=== PATIENT | male | born 1955 | race Caucasian/White ===

== ENCOUNTER 2017-05-31 06:40 | Day surgery (SDC) | payer OTHER ==
[2017-05-27 09:22] VITALS: BMI 25.7
[~2017-05-31 06:40] MED LIST: LIDOCAINE 1% 20 ML VIAL (10MG/ML) FOR IV START INTRADERMA PRN
[2017-05-31 07:20] VITALS: TEMP 96.9
[2017-05-31] MEDS: LACTATED RINGERS 1,000 ML IV SCH ×2 (07:28→07:32)
[2017-05-31 07:30] LABS: Glucose,Whole Blood 126 mg/dL (75-99)
[2017-05-31] MEDS ORDERED: LIDOCAINE 1% INJ 10MG/ML (20 ML MDV) ONE (07:34)
[2017-05-31] MEDS ORDERED: PROPOFOL 10 MG/ML 20 ML VIAL IV ONE (07:34)
--- NOTE | 2017-05-31 08:24 | P.PCN ---
Date of Procedure: 05/31/17 Preoperative Diagnosis: Red blood per rectum Postoperative Diagnosis: Scattered sigmoid diverticuli, internal hemorrhoids, prominent anal papilla right posterior lateral skin tag Procedure(s) Performed: Colonoscopy Anesthesia: MAC Surgeon: Elena Duran Estimated Blood Loss (ml): 0 IV fluids (ml): 250 Pathology: none sent Condition: stable Disposition: PACU Indications for Procedure: Red blood per rectum Operative Findings: Right posterior lateral external skin tag, internal hemorrhoids, prominent anal papillae, sigmoid diverticuli Description of Procedure: Patient was taken to the endoscopy suite and following sedation rectal exam was performed. Patient was noted to have a right posterior lateral external skin tag, adequate sphincter tone, no masses of concern. Consult was passed through the anus into the rectum was passed up the sigmoid colon to the splenic flexure transverse colon hepatic flexure right colon down to the area of the cecum. Proximally 6 minutes were taken to withdraw the scope from the cecum to the rectum. Circumferential observation of the mucosa did not reveal any lesions of concern in the cecum or right colon. No lesions of concern in the transverse colon. As the scope was brought down through the left colon and sigmoid colon scattered diverticular orifices were identified. Scope was brought down to the rectum where it was retroflexed. Internal hemorrhoids were identified with prominent anal papillae. Impression/plan: 1. Right external skin tag 2. Prominent anal papillae 3. Internal hemorrhoids 4. Beginning of diverticuli Plan: 1. Conservative management 2. Repeat scope 7-10 years
[2017-05-31 08:25] VITALS: PULSE 76
--- NOTE | 2017-05-31 08:25 | P.DS ---
Providers Attending physician: Elena Duran Primary care physician: Johan Grande Plan - Discharge Summary New Discharge Prescriptions: No Action oxyCODONE HCL 30 mg PO Q4HR PRN PRN Reason: Pain Tamsulosin [Flomax] 0.4 mg PO DAILY Phenytoin Sodium Extended [Dilantin] 200 mg PO QAM Primidone [Mysoline] 50 mg PO BID Phenytoin Sodium Extended 300 mg PO HS Oxybutynin Xl [Ditropan XL] 5 g PO BID Meloxicam 15 mg PO DAILY Discharge Medication List Meloxicam 15 mg PO DAILY 05/27/17 [History] Oxybutynin Xl [Ditropan XL] 5 g PO BID 05/27/17 [History] Phenytoin Sodium Extended 300 mg PO HS 05/27/17 [History] Phenytoin Sodium Extended [Dilantin] 200 mg PO QAM 05/27/17 [History] Primidone [Mysoline] 50 mg PO BID 05/27/17 [History] Tamsulosin [Flomax] 0.4 mg PO DAILY 05/27/17 [History] oxyCODONE HCL 30 mg PO Q4HR PRN 05/27/17 [History] Follow up Appointment(s)/Referral(s): Elena Duran MD [STAFF PHYSICIAN] - 1 Week Activity/Diet/Wound Care/Special Instructions: Diverticular diet Do not drive today Discharge Disposition: HOME SELF-CARE
[2017-05-31 08:37] VITALS: BP 121/81; RESP 18
== END 2017-05-31 08:53 | disposition home or self-care (01) ==
LOC: ORWHC2ENDO 06:40
PROVIDERS: ATTEND Surgery
DX: K64.4 Residual hemorrhoidal skin tags (principal); K64.8 Other hemorrhoids; K57.30 Diverticulosis of large intestine without perforation or abscess without bleeding; I10 Essential (primary) hypertension; J43.9 Emphysema, unspecified; F17.210 Nicotine dependence, cigarettes, uncomplicated; Z79.891 Long term (current) use of opiate analgesic; Z79.899 Other long term (current) drug therapy; G40.909 Epilepsy, unspecified, not intractable, without status epilepticus; R25.1 Tremor, unspecified; Z79.1 Long term (current) use of non-steroidal anti-inflammatories (NSAID)
CPT/HCPCS: 45378; J2001; J2704

== ENCOUNTER → 2017-09-06 | Outpatient (CLI) | payer OTHER ==
[2017-09-06 19:20] LABS: Blood Urea Nitrogen 18 mg/dL (9-20)
--- NOTE | 2017-09-06 21:13 | CT ---
EXAMINATION TYPE: CT brain w con DATE OF EXAM: 09/06/2017 COMPARISON: 08/21/2014 HISTORY: Left side neck swelling x2 months. CT DLP: 1112.4 mGycm Automated exposure control for dose reduction was used. CONTRAST: CT scan of the head is performed with IV Contrast, patient injected with 100ml mL of Isovue 300. FINDINGS: Ventricles of normal size. There is no mass effect nor midline shift. There is no sign of intracrania l hemorrhage. The calvarium is intact. There is no pathologic enhancement. IMPRESSION: Negative CT scan of the brain. No change.
--- NOTE | 2017-09-06 23:45 | CT ---
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 Left side neck swelling x2 months. TECHNIQUE: Contiguous axial scanning of the soft tissues of the neck performed with IV Contrast, sadi ent injected with 100ml mL of Isovue 300. Coronal/sagittal reconstructions performed. CT DLP: 522.2 mGycm Automated exposure control for dose reduction was used. FINDINGS: Visualized intracranial structures, mastoid air cells, and paranasal sinuses appear clear. Old blowou t fracture medial wall of the left orbit. Nasopharynx is clear. Oropharynx appears clear. The prevertebral soft tissues and epiglottis appear n ormal. The glottic and subglottic structures as well as the tracheal column are clear. Moderate centrilobula r emphysema in the visualized upper lungs with biapical pleural-parenchymal scarring. The thyroid gland and parotid glands are satisfactory. The bilateral submandibular glands are atrophi c. Mild to moderate atherosclerotic changes at the carotid bifurcations without significant internal car otid narrowing identified. No cervical lymphadenopathy or abnormal mass is identified in the neck Bones: Endplate spondylosis at C7-T1. No osseous destructive process. IMPRESSION: 1. NO CONVINCING EVIDENCE FOR RECURRENT NEOPLASM OR CERVICAL LYMPHADENOPATHY. IF THERE IS PERSISTENT CONCERN, THE EXAM CAN BE REVIEWED WITH ATTENTION DIRECTED TO THE SITE OF CLINICALLY APPARENT NECK SWE LLING. 2. COPD WITH MODERATE EMPHYSEMA.
== END | disposition home or self-care (01) ==
LOC: RADCTMAIN 18:28
PROVIDERS: ATTEND Family Medicine
DX: C02.9 Malignant neoplasm of tongue, unspecified (principal)
CPT/HCPCS: 82565; 84520; 70491; 70460; 36415; Q9967

== ENCOUNTER → 2017-12-08 | Outpatient (CLI) | payer OTHER ==
[~2017-12-08] MED LIST changes: -LIDOCAINE 1% 20 ML VIAL (10MG/ML) FOR IV START INTRADERMA PRN; +REGADENOSON 0.4 MG/5 ML SYRINGE IV ONE
--- NOTE | 2017-12-08 11:32 | NM ---
EXAMINATION TYPE: NM stress lexiscan cardiolite DATE OF EXAM: 12/08/2017 COMPARISON: 08/26/2014 HISTORY: Chest pain TECHNIQUE: After the intravenous administration of 10.85 mCi Tc 99m Sestamibi - Cardiolite resting S PECT images acquired 45 minutes post injection. The patient received 0.4mg Lexiscan, 26.9 mCi Tc 99m Sestamibi - Stress images obtained [address] injection FINDINGS: Review of stress and rest SPECT images demonstrates no distinct perfusion abnormality. Gated analysi s shows normal wall motion with an estimated left ventricular ejection fraction of 61 %. IMPRESSION: No scintigraphic evidence for reversible ischemia.
--- NOTE | 2017-12-08 13:36 | P.STRESS ---
- Stress Test Note Stress Test Results/Findings: Exam Performed: NM stress lexiscan cardiolite Exam Date: 12/08/17 Reason for Exam: CHEST PAIN / SOB Height: 6 ft 1 in Weight: 92.533 kg Protocol: LEXISCAN Stage: NA Duration of Exercise: NA Resting Heart Rate: 71 Resting Blood Pressure: 107/66 Maximum Achieved Heart Rate: 84 Maximum Achieved Blood Pressure: 118/60 85% PMHR: NA 100% PMHR: NA METS: NA Technologist Comment: Stress Test Results/Findings: This is a 61-year-old gentleman with history of hypertension, diabetes and hypercholesterolemia being evaluated for symptoms of chest pain and shortness of breath. stress data: Baseline EKG showed sinus rhythm with normal NV interval and QRS duration. A standard some Lexiscan was infused. EKGs taken during and after the infusion did not reveal any changes of ischemia. Final impression: #1. Negative Lexiscan stress test #2. Report on the nuclear images to be given by the radiologist
--- NOTE | 2017-12-09 15:57 | EST ---
Stress Test Results/Findings: Exam Performed: NM stress lexiscan cardiolite Exam Date: 12/08/17 Reason for Exam: CHEST PAIN / SOB Height: 6 ft 1 in Weight: 92.533 kg Protocol: LEXISCAN Stage: NA Duration of Exercise: NA Resting Heart Rate: 71 Resting Blood Pressure: 107/66 Maximum Achieved Heart Rate: 84 Maximum Achieved Blood Pressure: 118/60 85% PMHR: NA 100% PMHR: NA METS: NA Technologist Comment: Stress Test Results/Findings: This is a 61-year-old gentleman with history of hypertension, diabetes and hypercholesterolemia being evaluated for symptoms of chest pain and shortness of breath. stress data: Baseline EKG showed sinus rhythm with normal DC interval and QRS duration. A standard some Lexiscan was infused. EKGs taken during and after the infusion did not reveal any changes of ischemia. Final impression: #1. Negative Lexiscan stress test #2. Report on the nuclear images to be given by the radiologist ANNE
== END | disposition home or self-care (01) ==
LOC: RADNMMAIN 08:08
PROVIDERS: ATTEND Family Medicine
DX: R07.9 Chest pain, unspecified (principal)
CPT/HCPCS: 93017; 78452; A9500; J2785

== ENCOUNTER → 2018-07-24 | Outpatient (CLI) | payer OTHER ==
--- NOTE | 2018-07-25 09:10 | XR ---
EXAMINATION TYPE: XR chest 2V DATE OF EXAM: 07/24/2018 COMPARISON: NONE TECHNIQUE: PA and lateral views submitted. HISTORY: COPD FINDINGS: The lungs are clear and there is no pneumothorax, pleural effusion, or focal pneumonia. Biapical pl eural thickening. Arthropathy of the shoulders. Somewhat coarsened interstitium. There is right apica l pleural-based thickening IMPRESSION: 1. No acute process. Interstitium appears somewhat coarsened likely chronic correlate for chronic int erstitial lung disease or interstitial pneumonitis.
== END | disposition home or self-care (01) ==
LOC: RADXRMAIN 16:05
PROVIDERS: ATTEND Family Medicine
DX: J44.9 Chronic obstructive pulmonary disease, unspecified (principal)
CPT/HCPCS: 71046

== ENCOUNTER → 2019-08-16 | Outpatient (CLI) | payer MEDICARE, OTHER ==
--- NOTE | 2019-08-16 10:07 | US ---
EXAMINATION TYPE: US duplex aorta DATE OF EXAM: 08/16/2019 COMPARISON: NONE CLINICAL HISTORY: Z13.6 encounter for screening for cardiovascular. High cholesterol, Smoker, Patient states having HTN but is normal now EXAM MEASUREMENTS: Abdominal Aorta: Proximal: 2.0 x 1.9 cm Mid: 2.1 x 2.1 cm Distal: 1.7 x 1.5 cm Bifurcation: Right- 1.2 x 0.8 cm Left- 1.3 x 0.9 cm Limited exam due to overlying bowel gas and patient body habitus No AAA visualized at time of study. Limited visualization of bifurcations. IMPRESSION: No sonographic evidence of abdominal aortic aneurysm in the visualized portions of the ab dominal aorta.
== END | disposition home or self-care (01) ==
LOC: RADUSWWP 09:22
PROVIDERS: ATTEND Family Medicine
DX: Z13.6 Encounter for screening for cardiovascular disorders (principal)
CPT/HCPCS: 93979

== ENCOUNTER 2019-09-28 14:57 | Inpatient (IN) | payer MEDICARE, OTHER ==
[2019-09-28] MEDS ORDERED: SODIUM CHLORIDE 0.9% 1,000 ML IV STA (16:12)
[2019-09-28] MEDS ORDERED: SODIUM CHLORIDE 0.9% 500 ML 500 ML IV STA (16:12)
[2019-09-28] MEDS ORDERED: MORPHINE SULFATE 4 MG/ML SYRINGE IV STA (16:12)
--- NOTE | 2019-09-28 16:13 | ED ---
Abdominal Pain HPI - General Chief Complaint: Recheck/Abnormal Lab/Rx Stated Complaint: nausea, sob, facial swelling Time Seen by Provider: 09/28/19 15:24 Source: patient, RN notes reviewed, old records reviewed Mode of arrival: wheelchair Limitations: no limitations - History of Present Illness Initial Comments: This is a 64-year-old male DF with multiple complaints increased cough congestion facial swelling abdominal swelling decreased bowel movements decreased appetite. Patient surgical history significant for appendix surgery, denying any recent fevers, does now symptoms are progressively worsening abdominal bloating and tenderness is worsening MD Complaint: abdominal pain, other (Cough shortness of breath) -: week(s) Location: diffuse Radiation: none Migration to: no migration Severity: moderate Severity scale (1-10): 4 Quality: aching Consistency: constant Improves With: nothing Worsens With: nothing Context: other (None) Associated Symptoms: nausea - Related Data Home Medications Medication Instructions Recorded Confirmed Meloxicam 15 mg PO DAILY 05/27/17 09/28/19 Phenytoin Sodium Extended 200 mg PO DAILY 05/27/17 09/28/19 [Dilantin] Primidone [Mysoline] 50 mg PO BID 05/27/17 09/28/19 Tamsulosin [Flomax] 0.4 mg PO DAILY 05/27/17 09/28/19 oxyCODONE HCL [oxyCODONE HCL (IR)] 30 mg PO 5XD PRN 05/27/17 09/28/19 Albuterol Inhaler [Ventolin Hfa 2 puff INHALATION RT-Q4H PRN 09/28/19 09/28/19 Inhaler] Oxybutynin Chloride [Ditropan] 5 mg PO BID 09/28/19 09/28/19 Phenytoin Sodium Extended 300 mg PO HS 09/28/19 09/28/19 [Dilantin] Varenicline [Chantix Continuing 1 mg PO BID 09/28/19 09/28/19 Pack] Allergies Allergy/AdvReac Type Severity Reaction Status Date / Time No Known Allergies Allergy Verified 09/28/19 17:42 Review of Systems ROS Statement: Those systems with pertinent positive or pertinent negative responses have been documented in the HPI. ROS Other: All systems not noted in ROS Statement are negative. Past Medical History Past Medical History: Cancer, Prostate Disorder, Seizure Disorder Additional Past Medical History / Comment(s): tremors. last seizure 10/2003. THROAT CANCER. PAST HX HEP C History of Any Multi-Drug Resistant Organisms: None Reported Past Surgical History: Adenoidectomy, Appendectomy, Cholecystectomy, Tonsillectomy Additional Past Surgical History / Comment(s): MASTOID SX. COLONOSCOPY Past Anesthesia/Blood Transfusion Reactions: Previous Problems w/ Anesthesia Additional Past Anesthesia/Blood Transfusion Reaction / Comment(s): SLOW TO WAKE UP FROM ANESTHESIA Past Psychological History: No Psychological Hx Reported Smoking Status: Current every day smoker Past Alcohol Use History: None Reported Past Drug Use History: None Reported - Past Family History Mother Family Medical History: No Reported History General Exam Limitations: no limitations General appearance: alert, in no apparent distress Head exam: Present: atraumatic, normocephalic, normal inspection Eye exam: Present: normal appearance, PERRL, EOMI. Absent: scleral icterus, conjunctival injection, periorbital swelling ENT exam: Present: normal exam, mucous membranes moist Neck exam: Present: normal inspection. Absent: tenderness, meningismus, lymphadenopathy Respiratory exam: Present: normal lung sounds bilaterally. Absent: respiratory distress, wheezes, rales, rhonchi, stridor Cardiovascular Exam: Present: regular rate, normal rhythm, normal heart sounds. Absent: systolic murmur, diastolic murmur, rubs, gallop, clicks GI/Abdominal exam: Present: soft, normal bowel sounds. Absent: distended, tenderness, guarding, rebound, rigid Extremities exam: Present: normal inspection, full ROM, normal capillary refill. Absent: tenderness, pedal edema, joint swelling, calf tenderness Back exam: Present: normal inspection Neurological exam: Present: alert, oriented X3, CN II-XII intact Psychiatric exam: Present: normal affect, normal mood Skin exam: Present: warm, dry, intact, normal color. Absent: rash Course Vital Signs 09/28/19 09/28/19 09/28/19 15:01 16:45 16:48 Temperature 98.0 F Pulse Rate 90 93 Respiratory 18 18 Rate Blood Pressure 127/85 O2 Sat by Pulse 96 Oximetry 09/28/19 19:01 Temperature Pulse Rate 92 Respiratory Rate Blood Pressure 145/77 O2 Sat by Pulse 94 L Oximetry - Reevaluation(s) Reevaluation #1: 09/28/19 16:50 Medical records reviewed Reevaluation #2: 09/28/19 19:34 Patient still with pain, no bowel movement Medical Decision Making - Medical Decision Making 64 male DF for evaluation of persistent abdominal pain. Swelling and bloating. Is likely metastatic disease, patient will be admitted for oncology evaluation and pain control - Lab Data Result diagrams: 09/28/19 17:11 09/28/19 17:11 Lab Results 09/28/19 09/28/19 09/28/19 Range/Units 17:11 17:11 17:11 WBC 10.8 H (3.8-10.6) k/uL RBC 4.58 (4.30-5.90) m/uL Hgb 13.6 (13.0-17.5) gm/dL Hct 42.5 (39.0-53.0) % MCV 92.9 (80.0-100.0) fL MCH 29.8 (25.0-35.0) pg MCHC 32.1 (31.0-37.0) g/dL RDW 14.1 (11.5-15.5) % Plt Count 292 (150-450) k/uL Neutrophils % 82 % Lymphocytes % 7 % Monocytes % 8 % Eosinophils % 1 % Basophils % 1 % Neutrophils # 8.8 H (1.3-7.7) k/uL Lymphocytes # 0.7 L (1.0-4.8) k/uL Monocytes # 0.8 (0-1.0) k/uL Eosinophils # 0.1 (0-0.7) k/uL Basophils # 0.1 (0-0.2) k/uL PT 10.0 (9.0-12.0) sec INR 1.0 (<1.2) APTT 22.2 (22.0-30.0) sec Sodium 131 L (137-145) mmol/L Potassium 3.9 (3.5-5.1) mmol/L Chloride 94 L (98-107) mmol/L Carbon Dioxide 28 (22-30) mmol/L Anion Gap 9 mmol/L BUN 16 (9-20) mg/dL Creatinine 0.64 L (0.66-1.25) mg/dL Est GFR (CKD-EPI)AfAm >90 (>60 ml/min/1.73 sqM) Est GFR (CKD-EPI)NonAf >90 (>60 ml/min/1.73 sqM) Glucose 116 H (74-99) mg/dL Plasma Lactic Acid Mendel (0.7-2.0) mmol/L Calcium 10.2 (8.4-10.2) mg/dL Phosphorus 4.2 (2.5-4.5) mg/dL Magnesium 1.7 (1.6-2.3) mg/dL Total Bilirubin 0.5 (0.2-1.3) mg/dL AST 45 (17-59) U/L ALT 33 (4-49) U/L Alkaline Phosphatase 113 (38-126) U/L Creatine Kinase 32 L (55-170) U/L Troponin I (0.000-0.034) ng/mL NT-Pro-B Natriuret Pep pg/mL Total Protein 7.3 (6.3-8.2) g/dL Albumin 3.8 (3.5-5.0) g/dL Lipase 47 (23-300) U/L 09/28/19 09/28/19 09/28/19 Range/Units 17:11 17:11 17:11 WBC (3.8-10.6) k/uL RBC (4.30-5.90) m/uL Hgb (13.0-17.5) gm/dL Hct (39.0-53.0) % MCV (80.0-100.0) fL MCH (25.0-35.0) pg MCHC (31.0-37.0) g/dL RDW (11.5-15.5) % Plt Count (150-450) k/uL Neutrophils % % Lymphocytes % % Monocytes % % Eosinophils % % Basophils % % Neutrophils # (1.3-7.7) k/uL Lymphocytes # (1.0-4.8) k/uL Monocytes # (0-1.0) k/uL Eosinophils # (0-0.7) k/uL Basophils # (0-0.2) k/uL PT (9.0-12.0) sec INR (<1.2) APTT (22.0-30.0) sec Sodium (137-145) mmol/L Potassium (3.5-5.1) mmol/L Chloride (98-107) mmol/L Carbon Dioxide (22-30) mmol/L Anion Gap mmol/L BUN (9-20) mg/dL Creatinine (0.66-1.25) mg/dL Est GFR (CKD-EPI)AfAm (>60 ml/min/1.73 sqM) Est GFR (CKD-EPI)NonAf (>60 ml/min/1.73 sqM) Glucose (74-99) mg/dL Plasma Lactic Acid Mendel 1.3 (0.7-2.0) mmol/L Calcium (8.4-10.2) mg/dL Phosphorus (2.5-4.5) mg/dL Magnesium (1.6-2.3) mg/dL Total Bilirubin (0.2-1.3) mg/dL AST (17-59) U/L ALT (4-49) U/L Alkaline Phosphatase (38-126) U/L Creatine Kinase (55-170) U/L Troponin I <0.012 (0.000-0.034) ng/mL NT-Pro-B Natriuret Pep 152 pg/mL Total Protein (6.3-8.2) g/dL Albumin (3.5-5.0) g/dL Lipase (23-300) U/L - EKG Data -: EKG Interpreted by Me (EKG is sinus of 92 WA 136 QRS 90 QTC 473) - Radiology Data Radiology results: report reviewed (this CT head and pelvis does show significant metastatic disease chest x-ray shows pleural effusion), image reviewed Disposition Clinical Impression: Metastatic disease, Abdominal pain, Cancer associated pain Disposition: ADMITTED IP TO THIS [facility] Condition: Fair Is patient prescribed a controlled substance at d/c from ED?: No Referrals: Johan Grande MD [Primary Care Provider] - 1-2 days
[2019-09-28 17:26] LABS: Basophils # (A) 0.1 k/uL (0-0.2); Basophils % (A) 1 %; Eosinophils # (A) 0.1 k/uL (0-0.7); Eosinophils % (A) 1 %; HCT 42.5 % (39.0-53.0); HGB 13.6 gm/dL (13.0-17.5); Lymphocytes # (A) 0.7 k/uL (1.0-4.8); Lymphocytes % (A) 7 %; MCH 29.8 pg (25.0-35.0); MCHC 32.1 g/dL (31.0-37.0); MCV 92.9 fL (80.0-100.0); Mean Platelet Volume 7.4; Monocytes # (A) 0.8 k/uL (0-1.0); Monocytes % (A) 8 %; Neutrophils # (A) 8.8 k/uL (1.3-7.7); Neutrophils % (A) 82 %; Platelet Count 292 k/uL (150-450); RBC 4.58 m/uL (4.30-5.90); RDW 14.1 % (11.5-15.5); WBC 10.8 k/uL (3.8-10.6)
[2019-09-28 17:43] LABS: Partial Thromboplastin Time 22.2 sec (22.0-30.0)
[2019-09-28 17:51] LABS: ALT 33 U/L (4-49); AST 45 U/L (17-59); African American GFR (CKD) >90 (>60 ml/min/1.73 sqM); Albumin 3.8 g/dL (3.5-5.0); Alkaline Phosphatase 113 U/L (38-126); Anion Gap 9 mmol/L; Blood Urea Nitrogen 16 mg/dL (9-20); Calcium 10.2 mg/dL (8.4-10.2); Carbon Dioxide 28 mmol/L (22-30); Chloride 94 mmol/L (98-107); Creatine Kinase 32 U/L (55-170); Glucose 116 mg/dL (74-99); Lipase 47 U/L (23-300); Magnesium 1.7 mg/dL (1.6-2.3); Non-African American GFR(CKD) >90 (>60 ml/min/1.73 sqM); Phosphorus 4.2 mg/dL (2.5-4.5); Potassium 3.9 mmol/L (3.5-5.1); Sodium 131 mmol/L (137-145); Total Bilirubin 0.5 mg/dL (0.2-1.3); Total Protein 7.3 g/dL (6.3-8.2)
--- NOTE | 2019-09-28 18:20 | XR ---
EXAMINATION TYPE: XR chest 2V DATE OF EXAM: 09/28/2019 COMPARISON: Prior chest x-ray 07/24/2018 HISTORY: Weakness and shortness of breath TECHNIQUE: Frontal and lateral views of the chest are obtained. FINDINGS: Right upper lobe atelectasis is present, there is volume loss and right hilar mass. No millie dent effusion. Heart size is likely stable. Aorta is dense. Left lung is clear. IMPRESSION: Findings may represent postobstructive atelectasis in the right upper lobe.
[2019-09-28] MEDS ORDERED: MORPHINE SULFATE 4 MG/ML SYRINGE IVP STA (18:52)
--- NOTE | 2019-09-28 18:59 | CT ---
EXAMINATION TYPE: CT abdomen pelvis w con DATE OF EXAM: 09/28/2019 COMPARISON: Chest x-ray same day, prior CT 09/25/2012 HISTORY: Abdominal pain. Last BM couple weeks ago. CT DLP: 1215 mGycm Automated exposure control for dose reduction was used. TECHNIQUE: Helical acquisition of images from the lung bases through the pelvis have been completed. CONTRAST: Performed without Oral Contrast and with IV Contrast, patient injected with 100 mL of Isovue 300. FINDINGS: LUNG BASES: The right upper lobe atelectatic change. Loss of the right hemithorax is again noted, the re is a sizable right pleural effusion. AORTA: No significant abnormality is appreciated. LIVER/GB: There is a low dense focus within the right lobe of the liver is poorly defined margins darcy suring approximately 5.8 cm in size. Dilated intrahepatic ducts likely due to postcholecystectomy sheyla nge. PANCREAS: No significant abnormality is seen. SPLEEN: No significant abnormality is seen. ADRENALS: There is interval enlargement of the right adrenal gland KIDNEYS: Cystic foci are associated with the kidneys, largest is within the upper pole the right kidn ey measures 6.2 cm. There is nonobstructive calculus at the lower pole of the right kidney measuring 2 cm above findings appear to layer on the supine exam and may represent multiple stones REPRODUCTIVE ORGANS: Prostate is enlarged and shows associated calcification BOWEL: No significant abnormality is seen. FREE AIR: No Free Air visible. ASCITES: None visible. PELVIC ADENOPATHY: None visualized. RETROPERITONEAL ADENOPATHY: Retroperitoneal nodes are present in the aortocaval level, multiple node s are present, and axial image 45 short axis measurement is 17 mm enlarged node. URINARY BLADDER: No significant abnormality is seen. OSSEOUS STRUCTURES: No significant abnormality is seen. IMPRESSION: FINDINGS CONSISTENT WITH METASTATIC DISEASE. RIGHT PLEURAL EFFUSION. RIGHT UPPER LOBE ATELECTASIS DESCRIBED ON CHEST X-RAY REPORT. RIGHT-SIDED NEPHROLITHIASIS. ADDITIONAL FINDINGS ABOVE.
[2019-09-28] MEDS: MORPHINE SULFATE 4 MG/ML SYRINGE IVP PRN (21:35)
[2019-09-29] MEDS: MORPHINE SULFATE 4 MG/ML SYRINGE IVP PRN ×6 (01:29→23:10)
[2019-09-29] MEDS: TAMSULOSIN 0.4 MG CAP.ER.24H PO SCH (14:10)
[2019-09-29] MEDS: MELOXICAM 7.5 MG TAB PO SCH (14:10)
[2019-09-29] MEDS: polyethylene glycoL 3350 17 GM POWD.PACK PO SCH (14:10)
[2019-09-29] MEDS ORDERED: RX INFO: IV CONTRAST WAS GIVEN 1 EACH MISC MISCELLANE PRN (14:10)
[2019-09-29] MEDS: PHENYTOIN SODIUM EXTENDED 100 MG CAP PO SCH ×2 (14:13→20:13)
[2019-09-29 14:17] VITALS: BMI 27.7
--- NOTE | 2019-09-29 16:55 | CT ---
EXAMINATION TYPE: CT chest w con DATE OF EXAM: 09/29/2019 COMPARISON: HISTORY: Restaging for tounge cancer. CT DLP: 969.3 mGycm Automated exposure control for dose reduction was used. CONTRAST: Performed with IV Contrast, patient injected with 100ml mL of Isovue 300. There is large right pleural effusion and consolidation and atelectasis in the entire right lung. The re is no right lung pneumatization. Heart size is normal. There is small left pleural effusion. There is 2 cm irregular density adjacent to the pleura in the superior segment left lower lobe. There are multiple enlarged mediastinal lymph nodes. There appears to be anterior displacement of the superior vena cava from the trachea by an enlarged lymph node that measures almost 3 cm. There are other small er mediastinal lymph nodes that measure up to 1.5 cm. There is no pericardial effusion. Thoracic aort a is intact. There is no aneurysm or dissection. There is irregular 5 cm low-density mass in the late ral right lobe of the liver consistent with tumor. There are left renal cortical cysts. There are cli ps from cholecystectomy. The shoulder joints are intact. The ribs appear intact. I see no compression fracture in the thoracic spine. IMPRESSION: Right-sided hydrothorax with masslike density at the right pulmonary hilum extending into the mediast inum consistent with tumor. Consolidation and atelectasis of the entire right lung. Small left pleura l effusion. Nonspecific density adjacent to the pleura in the posterior superior segment of the left lower lobe. Large liver lesion consistent with tumor.
--- NOTE | 2019-09-29 17:08 | CT ---
EXAMINATION TYPE: CT soft tissue neck wo con DATE OF EXAM: 09/29/2019 COMPARISON: HISTORY: Restaging for tounge cancer. Tongue cancer CT DLP: 590.1 mGycm Automated exposure control for dose reduction was used. Multiple axial sections were obtained from the aortic arch to the top of the orbits without contrast. FINDINGS: There is fairly normal aeration of the paranasal sinuses. The parotid glands are symmetric. The subma ndibular salivary glands show some atrophy on the left side compared to the right. Epiglottis appears normal. Tonsils and adenoids appear within normal limits. There is atherosclerotic vascular calcific ation. There is asymmetric mild increased soft tissue density on the left side of the hypopharynx com pared to the right. Exam limited by lack of contrast. Thickening measures up to 10 mm. The thyroid gl and is intact. I see no significant cervical lymphadenopathy. There is atherosclerotic vascular calci fication in the left carotid artery. There is possible increased density lateral to the left carotid artery bifurcation. Cervical vertebra have normal alignment. Disc spaces are fairly normal. There is no compression fract ure. I see no bony destructive process. The skull base appears intact. There is incomplete pneumatiza tion of the left mastoid sinus. There is previous mastoid sinus surgery. IMPRESSION: Asymmetric increased soft tissue density in the hypopharynx on the left side with wall thickening praneeth t could relate to tumor. Possible enlarged lymph node lateral to the left carotid artery. No signific ant asymmetric density seen involving the tongue. This is better evaluated by physical exam.
[2019-09-29] MEDS: HEPARIN SODIUM,PORCINE 5,000 UNIT/ML 1 ML VIAL SQ SCH ×2 (17:36→23:11)
[2019-09-29] MEDS: OXYBUTYNIN CHLORIDE 5 MG TAB PO SCH (20:13)
[2019-09-29] MEDS: VARENICLINE 1 MG TAB PO SCH (20:13)
[2019-09-29] MEDS: PRIMIDONE 50 MG TAB PO SCH (20:13)
--- NOTE | 2019-09-29 23:21 | P.HPIM ---
History of Present Illness H&P Date: 09/29/19 Chief Complaint: Abdominal Pain Patient is a 64-year-old male with a known history of throat cancer status post chemo and radiation, chronic hepatitis C, hypertension, seizure disorder and BPH and also currently everyday smoker presented to ER with complaints of abdominal pain mainly right lower quadrant and generalized pain. Patient does have history of throat cancer and is currently able to eat but cannot taste. Denied any complaints of chest pain or shortness of breath. Patient states that he has been constipated for the past 4 to 5 days. Does pass flatus. Denies any fever or chills. No cough or sputum production. No headache or dizziness or lightheadedness. Chest x-ray showed findings may represent postobstructive atelectasis in the right upper lobe CT of the abdomen pelvis showed findings consistent with metastatic disease. Right pleural effusion. Right upper lobe atelectasis as described on the chest x-ray report. Right-sided nephrolithiasis. Additional findings as above. EKG showed normal sinus rhythm. CT of the chest showed right-sided hydrothorax with masslike density in the right pulmonary hilum extending into the mediastinum consistent with tumor. Consolidation atelectasis of the entire right lung small left pleural effusion. Nonspecific density adjacent to the pleura in the posterior superior segment of the left lower lobe. Large liver lesion consistent with tumor. CT soft tissue neck showed asymmetric increased soft tissue density in the hypopharynx on the left side with wall thickening that could relate to tumor. Laboratory data showed WBC 10.8, hemoglobin 13.6, platelets 292 and sodium 131, potassium 3.1 and chloride 94 BUN 16 and creatinine 0.64 lactic acid 1.3 Troponin x1- proBNP 152 COVID-19 PCR negative. Review of Systems Constitutional: Patient denies any fever or chills . Generalized body aches and pain. Abdomen: Patient denied nausea vomiting and diarrhea . RLQ abdominal pain. Cardiovascular: Patient denies any chest pain or short of breath no palpitations. Respiratory: patient denied any cough is from production. No shortness of breath Neurologic: Patient denied any numbness or tingling headache. Musculoskeletal: Patient denies any complaints of joint swelling or deformity. Skin: Negative Psychiatric: Negative Endocrine: No heat or cold intolerance. No recent weight gain. Genitourinary: No dysuria or hematuria. All other 14 point ROS negative except the above Past Medical History Past Medical History: Cancer, Hypertension, Prostate Disorder, Seizure Disorder Additional Past Medical History / Comment(s): tremors. last seizure 10/2003. THROAT CANCER, chemo and radiation. No taste since. PAST HX HEP C, tx History of Any Multi-Drug Resistant Organisms: None Reported Past Surgical History: Adenoidectomy, Appendectomy, Cholecystectomy, Tonsillectomy Additional Past Surgical History / Comment(s): MASTOID SX. COLONOSCOPY Past Anesthesia/Blood Transfusion Reactions: Previous Problems w/ Anesthesia Additional Past Anesthesia/Blood Transfusion Reaction / Comment(s): SLOW TO WAKE UP FROM ANESTHESIA Past Psychological History: No Psychological Hx Reported Smoking Status: Current every day smoker Past Alcohol Use History: None Reported Additional Past Alcohol Use History / Comment(s): SMOKES 2 PPD SINCE AGE 12 Past Drug Use History: None Reported - Past Family History Mother Family Medical History: No Reported History Medications and Allergies Home Medications Medication Instructions Recorded Confirmed Type Meloxicam 15 mg PO DAILY 05/27/17 09/28/19 History Phenytoin Sodium Extended 200 mg PO DAILY 05/27/17 09/28/19 History [Dilantin] Primidone [Mysoline] 50 mg PO BID 05/27/17 09/28/19 History Tamsulosin [Flomax] 0.4 mg PO DAILY 05/27/17 09/28/19 History oxyCODONE HCL [oxyCODONE HCL (IR)] 30 mg PO 5XD PRN 05/27/17 09/28/19 History Albuterol Inhaler [Ventolin Hfa 2 puff INHALATION RT-Q4H PRN 09/28/19 09/28/19 History Inhaler] Oxybutynin Chloride [Ditropan] 5 mg PO BID 09/28/19 09/28/19 History Phenytoin Sodium Extended 300 mg PO HS 09/28/19 09/28/19 History [Dilantin] Varenicline [Chantix Continuing 1 mg PO BID 09/28/19 09/28/19 History Pack] Allergies Allergy/AdvReac Type Severity Reaction Status Date / Time No Known Allergies Allergy Verified 09/28/19 17:42 Physical Exam Vitals: Vital Signs Temp Pulse Pulse Resp BP BP Pulse Ox 09/29/19 05:00 98.2 F 95 20 127/82 89 L 09/29/19 00:00 16 09/28/19 22:10 96.2 F L 92 16 166/81 93 L 09/28/19 20:31 98.6 F 92 18 169/83 92 L 09/28/19 19:01 92 145/77 94 L 09/28/19 16:48 93 09/28/19 16:45 18 09/28/19 15:01 98.0 F 90 18 127/85 96 Intake and Output 09/28/19 09/29/19 09/29/19 22:59 06:59 14:59 Intake Total 780 1030 240 Output Total 380 600 Balance 400 430 240 Intake: Intake, IV Titration 300 200 Amount Sodium Chloride 0.9% 1, 300 200 000 ml @ 130 mls/hr IV . Q7H42M STA Rx#:[id number] Oral 480 830 240 Output: Urine 380 600 Other: Weight 95.254 kg PHYSICAL EXAMINATION: Patient is lying in the bed appears to be in acute distress due to pain, awake alert and oriented.. HEENT: Normocephalic. Neck is supple. Pupils reactive. Nostrils clear. Oral cavity is moist. Ears reveal no drainage. Neck reveals no JVD, carotid bruits, or thyromegaly. CHEST EXAMINATION: Trachea is central. Symmetrical expansion. Diminished air entry on the right side. Left basilar crackles.n. CARDIAC: Normal S1, S2 with no gallops. No murmurs ABDOMEN: Soft.Right lower quadrant tenderness and generalized tenderness. Bowel sounds present. Distended. No abdominal bruits. Extremities: reveal no edema. No clubbing or cyanosis Neurologically awake, alert, oriented x2-3 with well-coordinated movements. No focal deficits noted Skin: No rash or skin lesions. Psychiatric: Coperative. Could not be sensory completely Musculoskeletal: No joint swelling or deformity. Normal range of motion. Results CBC & Chem 7: 09/28/19 17:11 09/28/19 17:11 Labs: Abnormal Lab Results - Last 24 Hours (Table) 09/28/19 09/28/19 Range/Units 17:11 17:11 WBC 10.8 H (3.8-10.6) k/uL Neutrophils # 8.8 H (1.3-7.7) k/uL Lymphocytes # 0.7 L (1.0-4.8) k/uL Sodium 131 L (137-145) mmol/L Chloride 94 L (98-107) mmol/L Creatinine 0.64 L (0.66-1.25) mg/dL Glucose 116 H (74-99) mg/dL Creatine Kinase 32 L (55-170) U/L Thrombosis Risk Factor Assmnt - DVT/VTE Prophylaxis DVT/VTE Prophylaxis: Pharmacologic Prophylaxis ordered - Choose All That Apply Each Risk Factor Represents 2 Points: Age 61-74 years, Malignancy Other congenital or acquired thrombophilia - If yes, enter type in comment: No Thrombosis Risk Factor Assessment Total Risk Factor Score: 4 Thrombosis Risk Factor Assessment Level: Moderate Risk Assessment and Plan Assessment: Right lower quadrant abdominal pain and generalized pain secondary to cancer related. 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 Consolidation and atelectasis of the entire right lung and small left pleural effusion Postobstructive atelectasis Throat cancer status post chemo and radiation. Hepatitis C infection Hypertension History of seizure disorder BPH Hypovolemic hyponatremia Chronic constipation DVT prophylaxis Plan: Patient will be continued on IV hydration and continue with pain management with morphine. Continue with stool softeners and laxatives and enema as needed for constipation. Oncology was consulted. Prognosis poor at this time. Will discuss with the family regarding CODE STATUS and comfort measures. Time with Patient: Greater than 30
[2019-09-30] MEDS: MORPHINE SULFATE 4 MG/ML SYRINGE IVP PRN ×5 (03:51→20:21)
[2019-09-30] MEDS: ALBUTEROL HFA INHALER INHALATION PRN ×3 (07:34→15:02)
[2019-09-30] MEDS: polyethylene glycoL 3350 17 GM POWD.PACK PO SCH (07:55)
[2019-09-30] MEDS: HEPARIN SODIUM,PORCINE 5,000 UNIT/ML 1 ML VIAL SQ SCH ×2 (07:56→15:59)
[2019-09-30] MEDS: MELOXICAM 7.5 MG TAB PO SCH (07:56)
[2019-09-30] MEDS: OXYBUTYNIN CHLORIDE 5 MG TAB PO SCH ×2 (07:57→20:24)
[2019-09-30] MEDS: PHENYTOIN SODIUM EXTENDED 100 MG CAP PO SCH ×2 (07:57→20:23)
[2019-09-30] MEDS: TAMSULOSIN 0.4 MG CAP.ER.24H PO SCH (07:59)
[2019-09-30] MEDS: PRIMIDONE 50 MG TAB PO SCH ×2 (07:59→20:24)
[2019-09-30] MEDS: VARENICLINE 1 MG TAB PO SCH ×2 (07:59→20:24)
[2019-10-01] MEDS: MORPHINE SULFATE 4 MG/ML SYRINGE IVP PRN ×6 (00:20→21:19)
[2019-10-01] MEDS: HEPARIN SODIUM,PORCINE 5,000 UNIT/ML 1 ML VIAL SQ SCH ×4 (00:21→23:00)
[2019-10-01] MEDS: ALBUTEROL HFA INHALER INHALATION PRN ×2 (07:27→19:55)
[2019-10-01] MEDS: MELOXICAM 7.5 MG TAB PO SCH (08:57)
[2019-10-01] MEDS: OXYBUTYNIN CHLORIDE 5 MG TAB PO SCH ×2 (09:01→21:21)
[2019-10-01] MEDS: PHENYTOIN SODIUM EXTENDED 100 MG CAP PO SCH ×2 (09:02→21:21)
[2019-10-01] MEDS: PRIMIDONE 50 MG TAB PO SCH ×2 (09:03→21:21)
[2019-10-01] MEDS: VARENICLINE 1 MG TAB PO SCH ×2 (09:04→21:21)
[2019-10-01] MEDS: polyethylene glycoL 3350 17 GM POWD.PACK PO SCH (09:04)
[2019-10-01] MEDS: TAMSULOSIN 0.4 MG CAP.ER.24H PO SCH (09:06)
--- NOTE | 2019-10-01 10:01 | P.PN ---
Subjective Progress Note Date: 09/30/19 Principal diagnosis: Abdominal pain secondary to metastatic cancer. Patient is a 64-year-old male with a known history of throat cancer status post chemo and radiation, chronic hepatitis C, hypertension, seizure disorder and BPH and also currently everyday smoker presented to ER with complaints of abdominal pain mainly right lower quadrant and generalized pain. Patient does have history of throat cancer and is currently able to eat but cannot taste. Denied any complaints of chest pain or shortness of breath. Patient states that he has been constipated for the past 4 to 5 days. Does pass flatus. Denies any fever or chills. No cough or sputum production. No headache or dizziness or lightheadedness. Chest x-ray showed findings may represent postobstructive atelectasis in the right upper lobe CT of the abdomen pelvis showed findings consistent with metastatic disease. Right pleural effusion. Right upper lobe atelectasis as described on the chest x-ray report. Right-sided nephrolithiasis. Additional findings as above. EKG showed normal sinus rhythm. CT of the chest showed right-sided hydrothorax with masslike density in the right pulmonary hilum extending into the mediastinum consistent with tumor. Consolidation atelectasis of the entire right lung small left pleural effusion. Nonspecific density adjacent to the pleura in the posterior superior segment of the left lower lobe. Large liver lesion consistent with tumor. CT soft tissue neck showed asymmetric increased soft tissue density in the hypopharynx on the left side with wall thickening that could relate to tumor. Laboratory data showed WBC 10.8, hemoglobin 13.6, platelets 292 and sodium 131, potassium 3.1 and chloride 94 BUN 16 and creatinine 0.64 lactic acid 1.3 Troponin x1- proBNP 152 COVID-19 PCR negative. 09/30/2019 Patient is currently lying in the bed comfortably. Abdominal pain is improved with morphine. Patient is able to tolerate soft diet. Otherwise patient doesn't have any bowel movement for the last few days. Patient had enema done yesterday and also attending stool softeners and laxatives. Otherwise patient has been afebrile. Oncology is on board. 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 Current medications reviewed. Objective - Vital Signs Vital signs: Vital Signs Temp 98.7 F 09/30/19 13:00 Pulse 90 09/30/19 16:00 Resp 21 09/30/19 16:00 BP 113/73 09/30/19 13:00 Pulse Ox 93 L 09/30/19 13:00 Intake & Output 09/30/19 09/30/19 10/01/19 06:59 18:59 06:59 Intake Total 240 2880 Output Total 700 600 Balance -460 2280 Intake: Oral 240 2880 Output: Urine 700 600 Other: Voiding Method Urinal # Voids 3 - Exam PHYSICAL EXAMINATION: Patient is lying in the bed operatively. No acute distress., awake alert and oriented.. HEENT: Normocephalic. Neck is supple. Pupils reactive. Nostrils clear. Oral cavity is moist. Ears reveal no drainage. Neck reveals no JVD, carotid bruits, or thyromegaly. CHEST EXAMINATION: Trachea is central. Symmetrical expansion. Diminished air entry on the right side. Left basilar crackles.n. CARDIAC: Normal S1, S2 with no gallops. No murmurs ABDOMEN: Soft.Right lower quadrant tenderness and generalized tenderness. Bowel sounds present. Distended. No abdominal bruits. Extremities: reveal no edema. No clubbing or cyanosis Neurologically awake, alert, oriented x2-3 with well-coordinated movements. No focal deficits noted Skin: No rash or skin lesions. Psychiatric: Coperative. Could not be sensory completely Musculoskeletal: No joint swelling or deformity. Normal range of motion. - Labs CBC & Chem 7: 09/28/19 17:11 09/28/19 17:11 Assessment and Plan Assessment: Right lower quadrant abdominal pain and generalized pain secondary to cancer related. 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 Consolidation and atelectasis of the entire right lung and small left pleural ef fusion Postobstructive atelectasis Throat cancer status post chemo and radiation. Hepatitis C infection Hypertension History of seizure disorder BPH Hypovolemic hyponatremia Chronic constipation DVT prophylaxis Plan: Patient will be continued on IV hydration and continue with pain management with morphine. Continue with stool softeners and laxatives and enema as needed for constipation. Oncology was consulted. Prognosis poor at this time. Will discuss with the family regarding CODE STATUS and comfort measures. Time with Patient: Greater than 30
--- NOTE | 2019-10-01 11:25 | P.CONS ---
History of Present Illness - Reason for Consult Consult date: 09/29/19 Metastatic Cancer Requesting physician: Koby Eugene - Chief Complaint Abdominal pain and constipation - History of Present Illness Mr. Rader is a pleasant male who was only seen once over his course of squamous cell carcinoma of the head and neck. He was seen [place] [address] Martin. 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 He had definitive chemoradiation at .. with weekly Carbo/Taxol. Per outpatient chart he does have repeated non-adherence to medical recommendations. Referred to ENT multiple times with never going, even after appointment was made for him. He also did not return to see us in office as scheduled after his initial consultation. made him appt.with ENT in town but for insurance reasons did not happen. He now presented to [facility] for persistent and worsening abdominal pain. He does take large about of narcotics at home, life long smoker (3 packs a day) now has cut down to 1-2. On presentation a CT abdomen and pelvis revealed abnormality RIght liver 5cm mass. He has not had BM in days, states he is passing flatulence. Review of Systems A 14 point review of systems assessed and completed and all negative except HPI Past Medical History Past Medical History: Cancer, Hypertension, Prostate Disorder, Seizure Disorder Additional Past Medical History / Comment(s): tremors. last seizure 10/2003. THROAT CANCER, chemo and radiation. No taste since. PAST HX HEP C, tx History of Any Multi-Drug Resistant Organisms: None Reported Past Surgical History: Adenoidectomy, Appendectomy, Cholecystectomy, Tonsillectomy Additional Past Surgical History / Comment(s): MASTOID SX. COLONOSCOPY Past Anesthesia/Blood Transfusion Reactions: Previous Problems w/ Anesthesia Additional Past Anesthesia/Blood Transfusion Reaction / Comm: SLOW TO WAKE UP FROM ANESTHESIA Past Psychological History: No Psychological Hx Reported Smoking Status: Current every day smoker Past Alcohol Use History: None Reported Additional Past Alcohol Use History / Comment(s): SMOKES 2 PPD SINCE AGE 12 Past Drug Use History: None Reported - Past Family History Mother Family Medical History: No Reported History Medications and Allergies Home Medications Medication Instructions Recorded Confirmed Type Meloxicam 15 mg PO DAILY 05/27/17 09/28/19 History Phenytoin Sodium Extended 200 mg PO DAILY 05/27/17 09/28/19 History [Dilantin] Primidone [Mysoline] 50 mg PO BID 05/27/17 09/28/19 History Tamsulosin [Flomax] 0.4 mg PO DAILY 05/27/17 09/28/19 History oxyCODONE HCL [oxyCODONE HCL (IR)] 30 mg PO 5XD PRN 05/27/17 09/28/19 History Albuterol Inhaler [Ventolin Hfa 2 puff INHALATION RT-Q4H PRN 09/28/19 09/28/19 History Inhaler] Oxybutynin Chloride [Ditropan] 5 mg PO BID 09/28/19 09/28/19 History Phenytoin Sodium Extended 300 mg PO HS 09/28/19 09/28/19 History [Dilantin] Varenicline [Chantix Continuing 1 mg PO BID 09/28/19 09/28/19 History Pack] Allergies Allergy/AdvReac Type Severity Reaction Status Date / Time No Known Allergies Allergy Verified 09/28/19 17:42 Physical Exam Vitals: Vital Signs Temp Pulse Pulse Resp BP BP Pulse Ox 09/29/19 12:25 98.2 F 98 20 117/78 93 L 09/29/19 05:00 98.2 F 95 20 127/82 89 L 09/29/19 00:00 16 09/28/19 22:10 96.2 F L 92 16 166/81 93 L 09/28/19 20:31 98.6 F 92 18 169/83 92 L 09/28/19 19:01 92 145/77 94 L 09/28/19 16:48 93 09/28/19 16:45 18 09/28/19 15:01 98.0 F 90 18 127/85 96 Intake and Output 09/28/19 09/29/19 09/29/19 22:59 06:59 14:59 Intake Total 780 1030 240 Output Total 380 600 Balance 400 430 240 Intake: Intake, IV Titration 300 200 Amount Sodium Chloride 0.9% 1, 300 200 000 ml @ 130 mls/hr IV . Q7H42M STA Rx#:[id number] Oral 480 830 240 Output: Urine 380 600 Other: Weight 95.254 kg - Constitutional General appearance: average body habitus, cooperative, no acute distress - EENT Eyes: EOMI, PERRLA, poor dentition ENT: NA/AT, normal oropharynx - Neck Left neck palpable Neck: lymphadenopathy - Respiratory Respiratory: bilateral: diminished, rhonchi - Cardiovascular Rhythm: regular Heart sounds: normal: S1, S2 - Gastrointestinal General gastrointestinal: decreased bowel sounds, soft - Integumentary Integumentary: pale - Neurologic non-focal - Musculoskeletal Musculoskeletal: generalized weakness, strength equal bilaterally - Psychiatric Psychiatric: A&O x's 3, appropriate affect, intact judgment & insight Results CBC & Chem 7: 09/28/19 17:11 09/28/19 17:11 Labs: Abnormal Lab Results - Last 24 Hours (Table) 09/28/19 09/28/19 Range/Units 17:11 17:11 WBC 10.8 H (3.8-10.6) k/uL Neutrophils # 8.8 H (1.3-7.7) k/uL Lymphocytes # 0.7 L (1.0-4.8) k/uL Sodium 131 L (137-145) mmol/L Chloride 94 L (98-107) mmol/L Creatinine 0.64 L (0.66-1.25) mg/dL Glucose 116 H (74-99) mg/dL Creatine Kinase 32 L (55-170) U/L CT scan - abdomen: report reviewed CT scan - pelvis: report reviewed Assessment and Plan Plan: Assessment and Recommendations: Abnormal Liver Findings: - Concerning for malignancy - IR for Biopsy CT CHest and Neck: - Full evaluation of metastatic disease - ?two primary cancers Discussed in detail with patient Await further CTs and MRI Brain Await Path Monitor for ileus versus obstruction, ct did not reveal obstructive picture although clinically there is concern
--- NOTE | 2019-10-01 13:50 | US ---
EXAMINATION TYPE: US venous doppler duplex UE RT DATE OF EXAM: 10/01/2019 COMPARISON: NONE CLINICAL HISTORY: swelling. SIDE PERFORMED: Right Exam somewhat limited. Patient unable to abduct arm, unable to visualize basilic v and axilla vein di stally Right Arm: Negative for DVT as seen. IMPRESSION: No evidence for DVT at this time.
[2019-10-01] MEDS ORDERED: HYDROmorphone 0.5 MG/0.5 ML SYRINGE IVP STA (13:58)
--- NOTE | 2019-10-01 15:14 | P.PN ---
Subjective Progress Note Date: 10/01/19 Principal diagnosis: Abdominal pain secondary to metastatic cancer. Patient is a 64-year-old male with a known history of throat cancer status post chemo and radiation, chronic hepatitis C, hypertension, seizure disorder and BPH and also currently everyday smoker presented to ER with complaints of abdominal pain mainly right lower quadrant and generalized pain. Patient does have history of throat cancer and is currently able to eat but cannot taste. Denied any complaints of chest pain or shortness of breath. Patient states that he has been constipated for the past 4 to 5 days. Does pass flatus. Denies any fever or chills. No cough or sputum production. No headache or dizziness or lightheadedness. Chest x-ray showed findings may represent postobstructive atelectasis in the right upper lobe CT of the abdomen pelvis showed findings consistent with metastatic disease. Right pleural effusion. Right upper lobe atelectasis as described on the chest x-ray report. Right-sided nephrolithiasis. Additional findings as above. EKG showed normal sinus rhythm. CT of the chest showed right-sided hydrothorax with masslike density in the right pulmonary hilum extending into the mediastinum consistent with tumor. Consolidation atelectasis of the entire right lung small left pleural effusion. Nonspecific density adjacent to the pleura in the posterior superior segment of the left lower lobe. Large liver lesion consistent with tumor. CT soft tissue neck showed asymmetric increased soft tissue density in the hypopharynx on the left side with wall thickening that could relate to tumor. Laboratory data showed WBC 10.8, hemoglobin 13.6, platelets 292 and sodium 131, potassium 3.1 and chloride 94 BUN 16 and creatinine 0.64 lactic acid 1.3 Troponin x1- proBNP 152 COVID-19 PCR negative. 09/30/2019 Patient is currently lying in the bed comfortably. Abdominal pain is improved with morphine. Patient is able to tolerate soft diet. Otherwise patient doesn't have any bowel movement for the last few days. Patient had enema done yesterday and also attending stool softeners and laxatives. Otherwise patient has been afebrile. Oncology is on board. 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 10/01/2019 Patient is seen and evaluated and follow-up with no acute overnight issues. Patient continues to request morphine often per nursing staff. Oncology following the patient recommending biopsy of the liver and Doppler. Doppler done of the right upper extremity which was negative for DVT at this time. When discussing with patient about treatment plan patient states he is unsure at this time but is agreeable to further testing and will await biopsy with interventional radiology to discuss further treatment options. Patient states he has some shortness of breath and is currently maintained on 3 L of oxygen via nasal cannula although no reports of chest pain or palpitations. Patient is afebrile. No reports of nausea or vomiting but does have some abdominal discomfort as patient states he has not had a bowel movement in 3 weeks. Patient had been taking large amounts of narcotics in the outpatient setting. Objective - Vital Signs Vital signs: Vital Signs Temp 97.9 F 10/01/19 11:51 Pulse 89 10/01/19 11:51 Resp 17 10/01/19 11:51 BP 159/79 10/01/19 11:51 Pulse Ox 93 L 10/01/19 11:51 Intake & Output 09/30/19 10/01/19 10/01/19 18:59 06:59 18:59 Intake Total 2880 1110 Output Total 600 600 Balance 2280 510 Intake: Intake, IV Titration 520 Amount Sodium Chloride 0.9% 1, 520 000 ml @ 130 mls/hr IV . Q7H42M STA Rx#:[id number] Oral 2880 590 Output: Urine 600 600 Other: Voiding Method Urinal # Voids 3 - Exam Patient is lying in the bed. No acute distress., awake alert and oriented 3. HEENT: Normocephalic. Neck is supple. Pupils reactive. Nostrils clear. Oral cavity is moist. Ears reveal no drainage. Neck reveals no JVD, carotid bruits, or thyromegaly. CHEST EXAMINATION: Trachea is central. Symmetrical expansion. Diminished air entry on the right side. Left basilar crackles noted. CARDIAC: Normal S1, S2 with no gallops. No murmurs ABDOMEN: Soft.Right lower quadrant tenderness and generalized tenderness. Bowel sounds present. Distended. No abdominal bruits. Extremities: reveal no edema. No clubbing or cyanosis Neurologically awake, alert, oriented x2-3 with well-coordinated movements. No focal deficits noted Skin: No rash or skin lesions. Psychiatric: Cooperative. Musculoskeletal: No joint swelling or deformity. Normal range of motion. - Labs CBC & Chem 7: 09/28/19 17:11 09/28/19 17:11 Labs: Microbiology - Last 24 Hours (Table) 09/30/19 15:00 Gram Stain - Preliminary Sputum Sputum Culture - Preliminary Assessment and Plan Assessment: Right lower quadrant abdominal pain and generalized pain secondary to cancer related. 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 Consolidation and atelectasis of the entire right lung and small left pleural effusion Postobstructive atelectasis Throat cancer status post chemo and radiation. Hepatitis C infection Hypertension History of seizure disorder BPH Hypovolemic hyponatremia Chronic constipation DVT prophylaxis Plan: Patient will be continued on pain management with morphine. Continue with stool softeners and laxatives and enema as needed for constipation. Oncology following recommendations liver biopsy and interventional radiology was consulted. Prognosis poor at this time. Patient has yet to decide on treatment plan. Patient is agreeable to further studies all is not made decisions for active treatment. Further recommendations to follow based on clinical course.
--- NOTE | 2019-10-01 16:27 | US ---
EXAMINATION TYPE: US biopsy liver DATE OF EXAM: 10/01/2019 HISTORY: Liver mass PROCEDURE: Maximal barrier technique was utilized. After informed consent, the skin overlying a suit able path to the liver was localized using ultrasound, the skin was prepped and draped. Ultrasound w as utilized with sterile technique. Lidocaine was used for local anesthesia. A skin arcadio made with a scalpel. Under direct ultrasound guidance, an 18-gauge needle was advanced into the left lobe of th e liver and 2 core biopsies were obtained. Hemostasis was achieved. There was no immediate complica tion and patient remained in stable condition. Specimen submitted in formalin to Pathology. IMPRESSION: STATUS POST ULTRASOUND GUIDED CORE BIOPSY OF THE RIGHT LOBE OF THE LIVER, PATHOLOGY PENDI NG. PERFORMED BY THE UNDERSIGNED.
--- NOTE | 2019-10-01 16:38 | MR ---
EXAMINATION TYPE: MR brain wo/w con DATE OF EXAM: 10/01/2019 COMPARISON: NONE HISTORY: hx metastatic Cancer - restaging TECHNIQUE: Multiplanar, multisequence images of the brain and brainstem is performed without and with IV contrast, utilizing 9.5 mL intravenous Gadavist . FINDINGS: Suboptimal study due to patient motion, fast brain protocol utilized. Diffusion weighted i mages demonstrate no evidence of a recent infarct or other diffusion abnormality. There is no worris ome extra-axial fluid collection. Diffuse ventricular and sulcal prominence. Some scattered foci of T 2 hyperintensity seen throughout the white matter bilaterally. Midline structures demonstrate normal morphology. The craniocervical junction appears within normal limits. Post contrast images demonstrate no abnormal enhancement. The dural venous sinuses appear pa tent. The visualized sinuses are clear and the globes are intact. IMPRESSION: 1. No MRI evidence for suspicious enhancing intraparenchymal mass to suggest metastatic disease to th e brain. 2. Background mild to moderate diffuse cerebral atrophy and chronic small vessel ischemic change.
[2019-10-01] MEDS ORDERED: NA PHOS,M-B/NA PHOS,DI-BA 133 ML ENEMA RECTAL ONE (18:45)
--- NOTE | 2019-10-01 21:17 | P.PN ---
Subjective Progress Note Date: 10/01/19 Principal diagnosis: New picture concerning for malignancy Plan for IR to perform biopsy of liver today. Review of CT of head and neck and chest reveal mediastinal adenopathy with 3cm ln near trachea. Unknow if secon primary or consistent with that of liver lesion. Would like a secon biopsy and will ask pulm to evaluate for best approach (bronch versus needle) Objective - Vital Signs Vital signs: Vital Signs Temp 97.9 F 10/01/19 11:51 Pulse 94 10/01/19 15:15 Resp 18 10/01/19 15:15 BP 124/74 10/01/19 15:15 Pulse Ox 92 L 10/01/19 15:15 Intake & Output 10/01/19 10/01/19 10/02/19 06:59 18:59 06:59 Intake Total 1110 600 Output Total 600 Balance 510 600 Intake: Intake, IV Titration 520 Amount Sodium Chloride 0.9% 1, 520 000 ml @ 130 mls/hr IV . [id number] STA Rx#:[id number] Oral 590 600 Output: Urine 600 Other: Voiding Method Urinal # Voids 2 - Exam - Constitutional General appearance: average body habitus, cooperative, no acute distress - EENT Eyes: EOMI, PERRLA, poor dentition ENT: NA/AT, normal oropharynx - Neck Left neck palpable Neck: lymphadenopathy - Respiratory Respiratory: bilateral: diminished, rhonchi - Cardiovascular Rhythm: regular Heart sounds: normal: S1, S2 - Gastrointestinal General gastrointestinal: decreased bowel sounds, soft - Integumentary Integumentary: pale - Neurologic non-focal - Musculoskeletal Musculoskeletal: generalized weakness, strength equal bilaterally - Psychiatric Psychiatric: A&O x's 3, appropriate affect, intact judgment & insight - Labs CBC & Chem 7: 09/28/19 17:11 09/28/19 17:11 Labs: Microbiology - Last 24 Hours (Table) 09/30/19 15:00 Gram Stain - Preliminary Sputum Sputum Culture - Preliminary Assessment and Plan Plan: Assessment and Recommendations: Abnormal Liver Findings: - Concerning for malignancy - IR for Biopsy today Await Path Mediastinal Adenopathy: - Pulm consult regarding tissue biopsy of mediastinal pathology Constipation: - No response to fleets - minimal flatulence - Clinical ileus - Reassess abdominal xray in am HX: head neck: - The new finding not likely related Plan PET as out patient physician Attest : I have completed full history and physical and agree with above dictation. dictated as a scribe
[2019-10-02] MEDS: MORPHINE SULFATE 4 MG/ML SYRINGE IVP PRN ×6 (01:21→21:51)
[2019-10-02] MEDS ORDERED: HYDROmorphone 0.5 MG/0.5 ML SYRINGE IVP PRN (06:40)
[2019-10-02 06:48] LABS: Basophils % (A) 0 %; Eosinophils # (A) 0.1 k/uL (0-0.7); Eosinophils % (A) 1 %; HCT 42.3 % (39.0-53.0); HGB 13.4 gm/dL (13.0-17.5); Lymphocytes # (A) 0.6 k/uL (1.0-4.8); Lymphocytes % (A) 7 %; MCH 29.8 pg (25.0-35.0); MCHC 31.7 g/dL (31.0-37.0); MCV 93.9 fL (80.0-100.0); Mean Platelet Volume 9.2; Monocytes # (A) 0.9 k/uL (0-1.0); Monocytes % (A) 10 %; Neutrophils # (A) 7.4 k/uL (1.3-7.7); Neutrophils % (A) 81 %; Platelet Count 251 k/uL (150-450); RDW 13.9 % (11.5-15.5); WBC 9.1 k/uL (3.8-10.6)
[2019-10-02 06:57] LABS: ALT 27 U/L (4-49); AST 38 U/L (17-59); African American GFR (CKD) >90 (>60 ml/min/1.73 sqM); Alkaline Phosphatase 129 U/L (38-126); Anion Gap 8 mmol/L; Blood Urea Nitrogen 11 mg/dL (9-20); Calcium 9.3 mg/dL (8.4-10.2); Carbon Dioxide 31 mmol/L (22-30); Chloride 92 mmol/L (98-107); Glucose 142 mg/dL (74-99); Non-African American GFR(CKD) >90 (>60 ml/min/1.73 sqM); Potassium 4.1 mmol/L (3.5-5.1); Sodium 131 mmol/L (137-145); Total Bilirubin 0.5 mg/dL (0.2-1.3); Total Protein 6.3 g/dL (6.3-8.2)
[2019-10-02] MEDS: ALBUTEROL HFA INHALER INHALATION PRN ×2 (07:14→11:04)
[2019-10-02] MEDS: PHENYTOIN SODIUM EXTENDED 100 MG CAP PO SCH ×2 (08:44→21:25)
[2019-10-02] MEDS: TAMSULOSIN 0.4 MG CAP.ER.24H PO SCH (08:44)
[2019-10-02] MEDS: MELOXICAM 7.5 MG TAB PO SCH (08:45)
[2019-10-02] MEDS: OXYBUTYNIN CHLORIDE 5 MG TAB PO SCH ×2 (08:45→21:25)
[2019-10-02] MEDS: VARENICLINE 1 MG TAB PO SCH ×2 (08:46→21:54)
[2019-10-02] MEDS: PRIMIDONE 50 MG TAB PO SCH ×2 (08:46→21:30)
[2019-10-02] MEDS: polyethylene glycoL 3350 17 GM POWD.PACK PO SCH (08:46)
[2019-10-02] MEDS: HEPARIN SODIUM,PORCINE 5,000 UNIT/ML 1 ML VIAL SQ SCH ×2 (08:46→16:05)
[2019-10-02] MEDS: HYDROmorphone 0.5 MG/0.5 ML SYRINGE IVP PRN (11:40)
--- NOTE | 2019-10-02 14:09 | P.PN ---
Subjective Progress Note Date: 10/02/19 Principal diagnosis: Abdominal pain secondary to metastatic cancer. Patient is a 64-year-old male with a known history of throat cancer status post chemo and radiation, chronic hepatitis C, hypertension, seizure disorder and BPH and also currently everyday smoker presented to ER with complaints of abdominal pain mainly right lower quadrant and generalized pain. Patient does have history of throat cancer and is currently able to eat but cannot taste. Denied any complaints of chest pain or shortness of breath. Patient states that he has been constipated for the past 4 to 5 days. Does pass flatus. Denies any fever or chills. No cough or sputum production. No headache or dizziness or lightheadedness. Chest x-ray showed findings may represent postobstructive atelectasis in the right upper lobe CT of the abdomen pelvis showed findings consistent with metastatic disease. Right pleural effusion. Right upper lobe atelectasis as described on the chest x-ray report. Right-sided nephrolithiasis. Additional findings as above. EKG showed normal sinus rhythm. CT of the chest showed right-sided hydrothorax with masslike density in the right pulmonary hilum extending into the mediastinum consistent with tumor. Consolidation atelectasis of the entire right lung small left pleural effusion. Nonspecific density adjacent to the pleura in the posterior superior segment of the left lower lobe. Large liver lesion consistent with tumor. CT soft tissue neck showed asymmetric increased soft tissue density in the hypopharynx on the left side with wall thickening that could relate to tumor. Laboratory data showed WBC 10.8, hemoglobin 13.6, platelets 292 and sodium 131, potassium 3.1 and chloride 94 BUN 16 and creatinine 0.64 lactic acid 1.3 Troponin x1- proBNP 152 COVID-19 PCR negative. 09/30/2019 Patient is currently lying in the bed comfortably. Abdominal pain is improved with morphine. Patient is able to tolerate soft diet. Otherwise patient doesn't have any bowel movement for the last few days. Patient had enema done yesterday and also attending stool softeners and laxatives. Otherwise patient has been afebrile. Oncology is on board. 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 10/01/2019 Patient is seen and evaluated and follow-up with no acute overnight issues. Patient continues to request morphine often per nursing staff. Oncology following the patient recommending biopsy of the liver and Doppler. Doppler done of the right upper extremity which was negative for DVT at this time. When discussing with patient about treatment plan patient states he is unsure at this time but is agreeable to further testing and will await biopsy with interventional radiology to discuss further treatment options. Patient states he has some shortness of breath and is currently maintained on 3 L of oxygen via nasal cannula although no reports of chest pain or palpitations. Patient is afebrile. No reports of nausea or vomiting but does have some abdominal discomfort as patient states he has not had a bowel movement in 3 weeks. Patient had been taking large amounts of narcotics in the outpatient setting. 10/02/2019 Patient is seen in follow-up today and continues to have generalized pain and weakness and is being closely monitored. Per nursing staff patient made comments of being too weak to get up out of the bed and PT/OT therapy consulted and pending at this time. Patient had a brain MRI for diagnostic purposes yesterday showing no MRI evidence for suspicious enhancing intraparenchymal mass to suggest metastatic disease to the brain and back from mild to moderate diffuse cerebral atrophy and small chronic vessel ischemic changes noted. Patient also had liver biopsy with pathology pending. Oncology is following. Case management is to discuss with patient about possible discharge planning needs as patient states he wants to return home with his son-in-law once discharged. Awaiting PT/OT eval for possible home care once discharged. Currently no reports of chest pain, worsening shortness of breath, or palpitations. Patient is afebrile. No reports of nausea or vomiting and patient is tolerating diet. Patient continues to deny bowel movements at this time. Patient did receive an enema. Objective - Vital Signs Vital signs: Vital Signs Temp 97.9 F 10/02/19 11:29 Pulse 88 10/02/19 11:29 Resp 18 10/02/19 11:29 BP 120/77 10/02/19 11:29 Pulse Ox 94 L 10/02/19 11:29 Intake & Output 10/01/19 10/02/19 10/02/19 18:59 06:59 18:59 Intake Total 600 1300 Output Total 300 400 Balance 600 1000 -400 Intake: Oral 600 1300 Output: Urine 300 400 Other: Voiding Method Urinal Urinal Urinal # Voids 2 3 - Exam Patient is lying in the bed. No acute distress., awake alert and oriented 3. HEENT: Normocephalic. Neck is supple. Pupils reactive. Nostrils clear. Oral cavity is moist. Ears reveal no drainage. Neck reveals no JVD, carotid bruits, or thyromegaly. CHEST EXAMINATION: Trachea is central. Symmetrical expansion. Diminished air entry on the right side. Left basilar crackles noted. CARDIAC: Normal S1, S2 with no gallops. No murmurs ABDOMEN: Soft.Right lower quadrant tenderness and generalized tenderness. Bowel sounds present. Distended. No abdominal bruits. Extremities: reveal no edema. No clubbing or cyanosis Neurologically awake, alert, oriented x2-3 with well-coordinated movements. No focal deficits noted Skin: No rash or skin lesions. Psychiatric: Cooperative. Musculoskeletal: No joint swelling or deformity. Normal range of motion. - Labs CBC & Chem 7: 10/02/19 05:46 10/02/19 05:46 Labs: Abnormal Lab Results - Last 24 Hours (Table) 10/02/19 10/02/19 Range/Units 05:46 05:46 Lymphocytes # 0.6 L (1.0-4.8) k/uL Sodium 131 L (137-145) mmol/L Chloride 92 L (98-107) mmol/L Carbon Dioxide 31 H (22-30) mmol/L Creatinine 0.52 L (0.66-1.25) mg/dL Glucose 142 H (74-99) mg/dL Alkaline Phosphatase 129 H (38-126) U/L Albumin 3.0 L (3.5-5.0) g/dL Microbiology - Last 24 Hours (Table) 09/30/19 15:00 Gram Stain - Final Sputum Sputum Culture - Final Assessment and Plan Assessment: Right lower quadrant abdominal pain and generalized pain secondary to cancer related. 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 Consolidation and atelectasis of the entire right lung and small left pleural effusion Postobstructive atelectasis Throat cancer status post chemo and radiation. Hepatitis C infection Hypertension History of seizure disorder BPH Hypovolemic hyponatremia Chronic constipation DVT prophylaxis Plan: Patient will be continued on pain management with morphine. Continue with stool softeners and laxatives and enema as needed for constipation. Oncology following. Patient underwent brain MRI along with liver biopsy. Pulmonary was consulted for possible lung biopsy. Prognosis poor at this time. Patient has yet to decide on treatment plan. Patient is agreeable to further studies although has not made decisions for active treatment. Had a lengthy discussion with patient and son at the bedside about CODE STATUS and patient states he wants everything done possible and wants to remain a full code. Further recommendations to follow based on clinical course.
--- NOTE | 2019-10-02 14:10 | P.PN ---
Subjective Progress Note Date: 10/02/19 Principal diagnosis: New picture concerning for malignancy Head and neck soft tissue abnormality and LN is actually the preferred biopsy site over lung. Consult placed for ENT. At this time the concern is the compression from tumor on SVC. Discussed with pulmonary and radiation and initiated dex q6 and PPI. Awaiting path from liver. No bronch at this time. Objective - Vital Signs Vital signs: Vital Signs Temp 97.9 F 10/02/19 11:29 Pulse 88 10/02/19 11:29 Resp 18 10/02/19 11:29 BP 120/77 10/02/19 11:29 Pulse Ox 94 L 10/02/19 11:29 Intake & Output 10/01/19 10/02/19 10/02/19 18:59 06:59 18:59 Intake Total 600 1300 Output Total 300 400 Balance 600 1000 -400 Intake: Oral 600 1300 Output: Urine 300 400 Other: Voiding Method Urinal Urinal Urinal # Voids 2 3 - Exam - Constitutional General appearance: average body habitus, cooperative, no acute distress - EENT Eyes: EOMI, PERRLA, poor dentition ENT: NA/AT, normal oropharynx - Neck Left neck palpable Neck: lymphadenopathy - Respiratory Respiratory: bilateral: diminished, rhonchi - Cardiovascular Rhythm: regular Heart sounds: normal: S1, S2 - Gastrointestinal General gastrointestinal: decreased bowel sounds, soft - Integumentary Integumentary: pale Unilateral upper extremity edema - Neurologic non-focal - Musculoskeletal Musculoskeletal: generalized weakness, strength equal bilaterally - Psychiatric Psychiatric: A&O x's 3, appropriate affect, intact judgment & insight - Labs CBC & Chem 7: 10/02/19 05:46 10/02/19 05:46 Labs: Abnormal Lab Results - Last 24 Hours (Table) 10/02/19 10/02/19 Range/Units 05:46 05:46 Lymphocytes # 0.6 L (1.0-4.8) k/uL Sodium 131 L (137-145) mmol/L Chloride 92 L (98-107) mmol/L Carbon Dioxide 31 H (22-30) mmol/L Creatinine 0.52 L (0.66-1.25) mg/dL Glucose 142 H (74-99) mg/dL Alkaline Phosphatase 129 H (38-126) U/L Albumin 3.0 L (3.5-5.0) g/dL Microbiology - Last 24 Hours (Table) 09/30/19 15:00 Gram Stain - Final Sputum Sputum Culture - Final Assessment and Plan Plan: Assessment and Recommendations: SVC Syndroms: - XRT consult placed. Discussed with Dr. Bro - Dexamethasone q6 - PPI Abnormal Liver Findings: - Concerning for malignancy - IR for Biopsy 09/30 Await Path Mediastinal Adenopathy: - Pulm consult regarding mediastinal pathology. - Right lung obstruction from tumor effect, no plan for bronch, too increased risk Constipation: - No response to fleets - minimal flatulence HX: head neck: - The new finding not likely related - Consult place for left neck submanibular node with ENT Plan PET as out patient physician Attest : I have completed full history and physical and agree with above dictation. dictated as a scribe
--- NOTE | 2019-10-02 15:42 | P.CNPUL ---
History of Present Illness Consult date: 10/02/19 Reason for consult: COPD, lung mass History of present illness: A 64-year-old male patient with known history of throat/tongue cancer post-chemoradiation therapy back in 2011 and addition to history of hepatitis C, hypertension. Disorder and smoking. The patient came into the hospital because of constipation. He denied having any significant shortness of breath. However further investigation with a chest x-ray showed volume loss and right upper lobe atelectasis. There was also a CAT scan of the abdomen and pelvis that was done showed abnormalities in the right lung base along with right-sided pleural effusion and compressive atelectasis of the right lower lobe. This led to a CAT scan of the chest that showed a right-sided pleural effusion i on the right lung is consolidated and atelectatic in its entirety. There are multiple enlarged mediastinal lymph nodes. There appears to be displacement of the superior vena cava with an enlarged lymph node that is measuring up to 3 cm in size. There are other smaller lymph nodes that measure up to 1.5 cm in size. There is also an irregular 5 cm low density mass in the lateral right lower lobe of the liver consistent with tumor. The CAT scan of the neck was also done and showed an asymmetric increased soft tissue density in the hypopharyngeal area on the left with wall thickening that could be related to a tumor. Based on all this findings, an ultrasound-guided biopsy of the liver was done by interventional radiology on the biopsy results are still pending for now. Apparently consultation was requested regarding the above-mentioned abnormalities. I saw the patient. Clinically is early signs of SVC syndrome with significant swelling of the right upper extremity. The patient is currently on oxygen 3 L per minute nasal cannula. No hemoptysis. He is a chronic smoker. He is having some exertional dyspnea for now. He is unable to walk. He is quite weak and his overall performance and functional status is extremely impaired. Review of Systems Constitutional: Reports fatigue, Reports weakness, Reports weight loss Eyes: denies as per HPI, denies blurred vision, denies bulging eye, denies decreased vision, denies diplopia, denies discharge, denies dry eye, denies irritation, denies itching, denies pain, denies photophobia, denies loss of peripheral vision, denies loss of vision, denies tunnel vision/blind spots Ears: deny: decreased hearing, ear discharge, earache, tinnitus Ears, nose, mouth and throat: Reports as per HPI Breasts: absent: as per HPI Cardiovascular: Reports decreased exercise tolerance, Reports dyspnea on exertion, Reports shortness of breath Respiratory: Reports dyspnea Gastrointestinal: Reports as per HPI, Reports constipation Genitourinary: Reports as per HPI Musculoskeletal: Reports as per HPI, Reports muscle weakness Musculoskeletal: absent: ankle pain, ankle stiffness, ankle swelling Integumentary: Reports as per HPI Neurological: Reports gait dysfunction, Reports lack of coordination, Reports weakness Psychiatric: Reports as per HPI Endocrine: Reports as per HPI, Reports weight change Hematologic/Lymphatic: Reports as per HPI Allergic/Immunologic: Reports as per HPI Past Medical History Past Medical History: Cancer, Hypertension, Prostate Disorder, Seizure Disorder Additional Past Medical History / Comment(s): Cancer of the head and neck possibly the tongue back in 2011 treated with chemoradiation therapy, history of hepatitis C, history of seizure disorder, COPD, BPH, hypertension History of Any Multi-Drug Resistant Organisms: None Reported Past Surgical History: Adenoidectomy, Appendectomy, Cholecystectomy, Tonsillectomy Additional Past Surgical History / Comment(s): MASTOID SX. COLONOSCOPY Past Anesthesia/Blood Transfusion Reactions: Previous Problems w/ Anesthesia Additional Past Anesthesia/Blood Transfusion Reaction / Comment(s): SLOW TO WAKE UP FROM ANESTHESIA Past Psychological History: No Psychological Hx Reported Past Alcohol Use History: None Reported Additional Past Alcohol Use History / Comment(s): SMOKES 2 PPD SINCE AGE 12 Past Drug Use History: None Reported - Past Family History Mother Family Medical History: No Reported History Medications and Allergies Home Medications Medication Instructions Recorded Confirmed Type Meloxicam 15 mg PO DAILY 05/27/17 09/28/19 History Phenytoin Sodium Extended 200 mg PO DAILY 05/27/17 09/28/19 History [Dilantin] Primidone [Mysoline] 50 mg PO BID 05/27/17 09/28/19 History Tamsulosin [Flomax] 0.4 mg PO DAILY 05/27/17 09/28/19 History oxyCODONE HCL [oxyCODONE HCL (IR)] 30 mg PO 5XD PRN 05/27/17 09/28/19 History Albuterol Inhaler [Ventolin Hfa 2 puff INHALATION RT-Q4H PRN 09/28/19 09/28/19 H istory Inhaler] Oxybutynin Chloride [Ditropan] 5 mg PO BID 09/28/19 09/28/19 History Phenytoin Sodium Extended 300 mg PO HS 09/28/19 09/28/19 History [Dilantin] Varenicline [Chantix Continuing 1 mg PO BID 09/28/19 09/28/19 History Pack] Allergies Allergy/AdvReac Type Severity Reaction Status Date / Time No Known Allergies Allergy Verified 09/28/19 17:42 Physical Exam Vitals: Vital Signs Temp Pulse Resp BP Pulse Ox 10/02/19 11:29 97.9 F 88 18 120/77 94 L 10/02/19 07:14 93 L 10/02/19 05:00 98.3 F 89 20 143/82 93 L 10/01/19 21:00 97.1 F L 92 20 108/65 91 L Intake and Output 10/02/19 10/02/19 10/02/19 06:59 14:59 22:59 Intake Total 710 Output Total 300 900 Balance 410 -900 Intake: Oral 710 Output: Urine 300 900 Other: Voiding Method Urinal Urinal Patient is lying in the bed appears to be in acute distress due to pain, awake alert and oriented.. HEENT: Normocephalic. Neck is supple. Pupils reactive. Nostrils clear. Oral cavity is moist. Ears reveal no drainage. There is some skin thickening and scarring along the left lateral chest area at the site of a previous radiation therapy. No palpable masses. Neck reveals no JVD, carotid bruits, or thyromegaly. CHEST EXAMINATION: Trachea is central. asymmetrical expansion and the patient has significant diminishment of the breast on the right. Left basilar crackles. n. CARDIAC: Normal S1, S2 with no gallops. No murmurs ABDOMEN: Soft.Right lower quadrant tenderness and generalized tenderness. Bowel sounds present. Distended. No abdominal bruits. Extremities: There is swelling of the right upper extremity compared to the left. There is some limited digital clubbing. No cyanosis. No edema. Neurologically awake, alert, oriented x2-3 with well-coordinated movements. No focal deficits noted Skin: No rash or skin lesions. Psychiatric: Coperative. Could not be sensory completely Musculoskeletal: No joint swelling or deformity. Normal range of motion. Results - Laboratory Findings CBC and BMP: 10/02/19 05:46 10/02/19 05:46 PT/INR, D-dimer PT 10.0 sec (9.0-12.0) 09/28/19 17:11 INR 1.0 (<1.2) 09/28/19 17:11 Abnormal lab findings: Abnormal Labs 09/28/19 09/28/19 10/02/19 17:11 17:11 05:46 WBC 10.8 H Neutrophils # 8.8 H Lymphocytes # 0.7 L 0.6 L Sodium 131 L Chloride 94 L Carbon Dioxide Creatinine 0.64 L Glucose 116 H Alkaline Phosphatase Creatine Kinase 32 L Albumin 10/02/19 05:46 WBC Neutrophils # Lymphocytes # Sodium 131 L Chloride 92 L Carbon Dioxide 31 H Creatinine 0.52 L Glucose 142 H Alkaline Phosphatase 129 H Creatine Kinase Albumin 3.0 L - Diagnostic Findings Chest x-ray: image reviewed CT scan - chest: image reviewed Assessment and Plan Plan: 1 right lung consolidation/atelectasis in addition to her right-sided pleural effusion and hilar mass and mediastinal lymphadenopathy consistent with lung cancer 2 right-sided pleural effusion with presence of a trapped lung with tumor obstructing the right upper lobe bronchus and distal bronchus intermedius. Consider malignant pleural effusion. Consider reactive pleural effusion following lung collapse. 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 Seizure Disorder 10 BPH 11 chronic constipation 12 smoker Plan Liver biopsy has been done. Awaiting final pathology The patient has a hilar mass with mediastinal lymphadenopathy and early signs of SVC syndrome. Will need to check the liver biopsy results as soon as possible and consulted with medical oncology and radiation oncology in that regard. Keep the head of the bed elevated and keep the arms elevated. May be some benefit with systemic steroids. ENT evaluation of the upper airway with special attention to the hypopharyngeal area to rule out any masses or obstructing tumors Prognosis extremely poor baseline above-mentioned comorbidities. The patient has significant impairment of the films and functional status. I'm not sure is going to be a good candidate for systemic treatment if offered once the results of the biopsies are available. No immediate plans to do a bronchoscopy at this point in time. We'll be awaiting the findings are aspirate and the final pathology from the liver. No plans for thoracentesis as the right lung is somewhat trapped and no complete extension will be cheated the patient has significant obstruction and occlusion of the right upper lobe bronchus and narrowing of the distal bronchus intermedius.
[2019-10-02] MEDS: DEXAMETHASONE SOD PHOSPHATE 4 MG/ML 1 ML VIAL IV SCH ×2 (16:05→21:26)
[2019-10-02] MEDS: PANTOPRAZOLE 40 MG TABLET PO SCH (16:07)
[2019-10-02] MEDS ORDERED: DEXAMETHASONE SOD PHOSPHATE 4 MG/ML 1 ML VIAL IM SCH (18:00)
[2019-10-03] MEDS: HEPARIN SODIUM,PORCINE 5,000 UNIT/ML 1 ML VIAL SQ SCH ×3 (00:52→17:19)
[2019-10-03] MEDS: HYDROmorphone 0.5 MG/0.5 ML SYRINGE IVP PRN ×3 (00:55→19:43)
[2019-10-03] MEDS: MORPHINE SULFATE 4 MG/ML SYRINGE IVP PRN ×5 (02:24→21:31)
[2019-10-03] MEDS: DEXAMETHASONE SOD PHOSPHATE 4 MG/ML 1 ML VIAL IV SCH ×4 (02:28→17:19)
[2019-10-03 08:10] LABS: Basophils % (A) 0 %; Eosinophils # (A) 0.1 k/uL (0-0.7); Eosinophils % (A) 1 %; HGB 14.8 gm/dL (13.0-17.5); Lymphocytes # (A) 0.3 k/uL (1.0-4.8); Lymphocytes % (A) 4 %; MCH 31.1 pg (25.0-35.0); MCHC 32.9 g/dL (31.0-37.0); MCV 94.5 fL (80.0-100.0); Mean Platelet Volume 7.6; Monocytes # (A) 0.4 k/uL (0-1.0); Monocytes % (A) 4 %; Neutrophils # (A) 8.4 k/uL (1.3-7.7); Neutrophils % (A) 90 %; Platelet Count 292 k/uL (150-450); RBC 4.76 m/uL (4.30-5.90); RDW 13.8 % (11.5-15.5); WBC 9.3 k/uL (3.8-10.6)
[2019-10-03] MEDS: ALBUTEROL HFA INHALER INHALATION PRN ×3 (08:12→20:16)
[2019-10-03 08:21] LABS: African American GFR (CKD) >90 (>60 ml/min/1.73 sqM); Anion Gap 8 mmol/L; Blood Urea Nitrogen 11 mg/dL (9-20); Calcium 9.4 mg/dL (8.4-10.2); Carbon Dioxide 28 mmol/L (22-30); Chloride 94 mmol/L (98-107); Glucose 158 mg/dL (74-99); Non-African American GFR(CKD) >90 (>60 ml/min/1.73 sqM); Potassium 4.8 mmol/L (3.5-5.1); Sodium 130 mmol/L (137-145)
[2019-10-03] MEDS: MELOXICAM 7.5 MG TAB PO SCH (08:21)
[2019-10-03] MEDS: PRIMIDONE 50 MG TAB PO SCH ×2 (08:21→20:42)
[2019-10-03] MEDS: VARENICLINE 1 MG TAB PO SCH ×2 (08:21→20:42)
[2019-10-03] MEDS: PANTOPRAZOLE 40 MG TABLET PO SCH ×2 (08:21→17:19)
[2019-10-03] MEDS: polyethylene glycoL 3350 17 GM POWD.PACK PO SCH (08:21)
[2019-10-03] MEDS: TAMSULOSIN 0.4 MG CAP.ER.24H PO SCH (08:21)
[2019-10-03] MEDS: OXYBUTYNIN CHLORIDE 5 MG TAB PO SCH ×2 (08:21→20:43)
[2019-10-03] MEDS: PHENYTOIN SODIUM EXTENDED 100 MG CAP PO SCH ×2 (08:22→20:43)
--- NOTE | 2019-10-03 14:43 | P.PN ---
Subjective Progress Note Date: 10/03/19 Principal diagnosis: New picture concerning for malignancy Dexamethasone initated yesterday and radiation oncology asked to evaluate. Path from liver still pending. Await ENT evaluation Objective - Vital Signs Vital signs: Vital Signs Temp 97.6 F 10/03/19 12:48 Pulse 90 10/03/19 12:48 Resp 16 10/03/19 12:48 BP 93/66 10/03/19 12:48 Pulse Ox 92 L 10/03/19 04:00 Intake & Output 10/02/19 10/03/19 10/03/19 18:59 06:59 18:59 Intake Total 600 Output Total 900 500 Balance -900 -500 600 Intake: Oral 600 Output: Urine 900 500 Other: Voiding Method Urinal Urinal Urinal # Voids 2 2 # Bowel Movements 0 - Exam - Constitutional General appearance: average body habitus, cooperative, no acute distress - EENT Eyes: EOMI, PERRLA, poor dentition ENT: NA/AT, normal oropharynx - Neck Left neck palpable Neck: lymphadenopathy - Respiratory Respiratory: bilateral: diminished, rhonchi - Cardiovascular Rhythm: regular Heart sounds: normal: S1, S2 - Gastrointestinal General gastrointestinal: decreased bowel sounds, soft - Integumentary Integumentary: pale Unilateral upper extremity edema - Neurologic non-focal - Musculoskeletal Musculoskeletal: generalized weakness, strength equal bilaterally - Psychiatric Psychiatric: A&O x's 3, appropriate affect, intact judgment & insight - Labs CBC & Chem 7: 10/03/19 07:30 10/03/19 07:30 Labs: Abnormal Lab Results - Last 24 Hours (Table) 10/03/19 10/03/19 Range/Units 07:30 07:30 Neutrophils # 8.4 H (1.3-7.7) k/uL Lymphocytes # 0.3 L (1.0-4.8) k/uL Sodium 130 L (137-145) mmol/L Chloride 94 L (98-107) mmol/L Creatinine 0.45 L (0.66-1.25) mg/dL Glucose 158 H (74-99) mg/dL Assessment and Plan Plan: Assessment and Recommendations: SVC Syndroms: - XRT consult placed. Discussed with Dr. Bro - Dexamethasone q6 - PPI Abnormal Liver Findings: - Concerning for malignancy - IR for Biopsy 09/30 Await Path Mediastinal Adenopathy: - Pulm consult regarding mediastinal pathology. - Right lung obstruction from tumor effect, no plan for bronch, too increased risk Constipation: - No response to fleets - minimal flatulence HX: head neck: - The new finding not likely related - Consult place for left neck submanibular node with ENT Plan PET as out patient Plan: - Continue dex and PPI - Await Radiation oncology evaluation - Await path - PT/OT physician Attest : I have completed full history and physical and agree with above dictation. dictated as a scribe
--- NOTE | 2019-10-03 15:48 | P.PN ---
Subjective Progress Note Date: 10/03/19 Principal diagnosis: right lung consolidation, atelectasis, right-sided pleural effusion and hilar mass, mediastinal lymphadenopathy and SVC syndrome A 64-year-old male patient with known history of throat/tongue cancer post- chemoradiation therapy back in 2011 and addition to history of hepatitis C, hypertension. Disorder and smoking. The patient came into the hospital because of constipation. He denied having any significant shortness of breath. However further investigation with a chest x-ray showed volume loss and right upper lobe atelectasis. There was also a CAT scan of the abdomen and pelvis that was done showed abnormalities in the right lung base along with right-sided pleural effusion and compressive atelectasis of the right lower lobe. This led to a CAT scan of the chest that showed a right-sided pleural effusion i on the right lung is consolidated and atelectatic in its entirety. There are multiple enlarged mediastinal lymph nodes. There appears to be displacement of the superior vena cava with an enlarged lymph node that is measuring up to 3 cm in size. There are other smaller lymph nodes that measure up to 1.5 cm in size. There is also an irregular 5 cm low density mass in the lateral right lower lobe of the liver consistent with tumor. The CAT scan of the neck was also done and showed an asymmetric increased soft tissue density in the hypopharyngeal area on the left with wall thickening that could be related to a tumor. Based on all this findings, an ultrasound-guided biopsy of the liver was done by interventional radiology on the biopsy results are still pending for now. Apparently consultation was requested regarding the above-mentioned abnormalities. I saw the patient. Clinically is early signs of SVC syndrome with significant swelling of the right upper extremity. The patient is currently on oxygen 3 L per minute nasal cannula. No hemoptysis. He is a chronic smoker. He is having some exertional dyspnea for now. He is unable to walk. He is quite weak and his overall performance and functional status is extremely impaired. On 10/03/2019 patient seen in follow-up on the medical oncology unit. he is awake and alert, he remains generally weak, he is in no acute distress, complaining of right arm swelling, and right shoulder discomfort. liver biopsy results are still pending for now. Patient is undergoing ENT evaluation and possible biopsy of the left neck submandibular note. We discussed case with radiation oncology, who is awaiting results of the liver biopsy. The plan is to proceed with radiation therapy in case of non-small cell lung cancer primary, and chemotherapy in case of small cell lung cancer. nterim patient remains on 3 L of oxygen with pulse ox of 92-94%, he is been afebrile, does become short of breath with any exertion, he has been on bed rest. Objective - Vital Signs Vital signs: Vital Signs Temp 97.6 F 10/03/19 12:48 Pulse 90 10/03/19 12:48 Resp 16 10/03/19 12:48 BP 93/66 10/03/19 12:48 Pulse Ox 92 L 10/03/19 04:00 Intake & Output 10/02/19 10/03/19 10/03/19 18:59 06:59 18:59 Intake Total 600 Output Total 900 500 400 Balance -900 -500 200 Weight 95.254 kg Intake: Oral 600 Output: Urine 900 500 400 Other: Voiding Method Urinal Urinal Urinal # Voids 2 2 # Bowel Movements 0 - Exam GENERAL EXAM: Alert, active, appears generally weak, 3 L of oxygen with pulse ox of 93%, comfortable in no apparent distress. HEAD: Normocephalic/atraumatic. EYES: Normal reaction of pupils, equal size. Conjunctiva pink, sclera white. NOSE: Clear with pink turbinates. THROAT: No erythema or exudates. NECK: no JVD, no thyroid enlargement, possible adenopathy in the left anterior cervical area possibly submandibular CHEST: No chest wall deformity. Symmetrical expansion. LUNGS: absent breath sounds on the right, and diminished breath sounds with wheezing and a few rhonchi on the left CVS: Regular rate and rhythm, normal S1 and S2, no gallops, no murmurs, no rubs ABDOMEN: Soft, nontender. No hepatosplenomegaly, normal bowel sounds, no guarding or rigidity. EXTREMITIES: No clubbing, no cyanosis, 2+ pulses and upper and lower extremities. there is nonpitting edema involving right arm, range of motion is limited, with significant right shoulder discomfort with any movement of the right arm MUSCULOSKELETAL: Muscle strength and tone normal. SPINE: No scoliosis or deformity SKIN: No rashes CENTRAL NERVOUS SYSTEM: Alert and oriented -3. No focal deficits, tone is normal in all 4 extremities. PSYCHIATRIC: Alert and oriented -3. Appropriate affect. Intact judgment and insight. - Labs CBC & Chem 7: 10/03/19 07:30 10/03/19 07:30 Labs: Abnormal Lab Results - Last 24 Hours (Table) 10/03/19 10/03/19 Range/Units 07:30 07:30 Neutrophils # 8.4 H (1.3-7.7) k/uL Lymphocytes # 0.3 L (1.0-4.8) k/uL Sodium 130 L (137-145) mmol/L Chloride 94 L (98-107) mmol/L Creatinine 0.45 L (0.66-1.25) mg/dL Glucose 158 H (74-99) mg/dL Assessment and Plan Plan: Assessment: 1 right lung consolidation/atelectasis in addition to her right-sided pleural effusion and hilar mass and mediastinal lymphadenopathy consistent with lung cancer 2 right-sided pleural effusion with presence of a trapped lung with tumor obstructing the right upper lobe bronchus and distal bronchus intermedius. Consider malignant pleural effusion. Consider reactive pleural effusion following lung collapse. 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 Seizure Disorder 10 BPH 11 chronic constipation 12 smoker Plan: Awaiting results of the liver biopsy. Discussed case with radiation oncology, patient has developed SVC syndrome with swelling of the right upper extremity, some swelling of the neck, and right shoulder pain. Patient will have chemotherapy if his liver biopsy shows primary small cell lung cancer, and radiation for non-small cell. Keep head of the bed elevated, keep the right arm elevated. Patient has been started on dexamethasone. No plans for bronchoscopy, as this will likely not benefit the patient related to significant tumor obstruction of the right upper lobe. Will await results of the final liver pathology. Will continue to follow I performed a history & physical examination of the patient and discussed their management with my nurse practitioner, Nancy Levine. I reviewed the nurse practitioner's note and agree with the documented findings and plan of care. Lung sounds are positive for absent breath Sounds on the Right. The findings and the impression was discussed with the patient. I attest to the documentation by the nurse practitioner. Time with Patient: Less than 30
--- NOTE | 2019-10-03 17:03 | P.CONS ---
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 He now presents with evidence of SVC syndrome complaining of facial swelling and dyspnea. The patient was admitted to the emergency room on September 27 complaining of cough, facial swelling and abdominal pain. A chest x-ray showed loss of the right hemithorax. The patient subsequently underwent a CT scan of the abdomen and pelvis which revealed a 5.8 cm dense focus in the right hepatic lobe of the liver suspicious for metastasis. Multiple retroperitoneal lymph nodes were also seen. A CT scan of the chest was also performed revealing a large right-sided pleural effusion with complete right lung atelectasis. A CT scan of the neck discussed some asymmetry in the left hypopharynx, however based on my review I feel that this is likely on the basis of previous radiation treatment. MRI of the brain performed on September 30 was unremarkable. The patient had a liver biopsy performed that same day, and although the final pathology is now returned it does appear to be consistent with adenocarcinoma. At this time the patient reports his facial swelling has largely unchanged since admission. He still feels his right arm is somewhat swollen as well. He feels that his abdomen is tight and distended. He notes he was able to move his bowels a couple days ago. He was able to walk to the door in back with physical therapy while using a walker, but he notes he was quite worn out after this. He has no trouble laying flat, and denies dysphagia, odynophagia, changes in his voice or otalgia. He reports that he has been feeling poorly with regards to increased dyspnea and cough for approximately 3 months. Review of Systems Constitutional: Denies chills, Denies fever Eyes: denies blurred vision Ears, nose, mouth and throat: Denies dysphagia, Denies sore throat Cardiovascular: Reports dyspnea on exertion, Denies chest pain Respiratory: Reports cough, Reports dyspnea, Denies hemoptysis Gastrointestinal: Reports bloating, Reports constipation, Denies abdominal pain Genitourinary: Denies flank pain Neurological: Denies ataxia, Denies confusion Psychiatric: Denies confusion Past Medical History Past Medical History: Cancer, Hypertension, Prostate Disorder, Seizure Disorder Additional Past Medical History / Comment(s): Cancer of the head and neck possibly the tongue back in 2011 treated with chemoradiation therapy, history of hepatitis C, history of seizure disorder, COPD, BPH, hypertension History of Any Multi-Drug Resistant Organisms: None Reported Past Surgical History: Adenoidectomy, Appendectomy, Cholecystectomy, Tonsillectomy Additional Past Surgical History / Comment(s): MASTOID SX. COLONOSCOPY Past Anesthesia/Blood Transfusion Reactions: Previous Problems w/ Anesthesia Additional Past Anesthesia/Blood Transfusion Reaction / Comm: SLOW TO WAKE UP F ROM ANESTHESIA Past Psychological History: No Psychological Hx Reported Past Alcohol Use History: None Reported Additional Past Alcohol Use History / Comment(s): SMOKES 2 PPD SINCE AGE 12 Past Drug Use History: None Reported - Past Family History Mother Family Medical History: No Reported History Medications and Allergies Home Medications Medication Instructions Recorded Confirmed Type Meloxicam 15 mg PO DAILY 05/27/17 09/28/19 History Phenytoin Sodium Extended 200 mg PO DAILY 05/27/17 09/28/19 History [Dilantin] Primidone [Mysoline] 50 mg PO BID 05/27/17 09/28/19 History Tamsulosin [Flomax] 0.4 mg PO DAILY 05/27/17 09/28/19 History oxyCODONE HCL [oxyCODONE HCL (IR)] 30 mg PO 5XD PRN 05/27/17 09/28/19 History Albuterol Inhaler [Ventolin Hfa 2 puff INHALATION RT-Q4H PRN 09/28/19 09/28/19 History Inhaler] Oxybutynin Chloride [Ditropan] 5 mg PO BID 09/28/19 09/28/19 History Phenytoin Sodium Extended 300 mg PO HS 09/28/19 09/28/19 History [Dilantin] Varenicline [Chantix Continuing 1 mg PO BID 09/28/19 09/28/19 History Pack] Allergies Allergy/AdvReac Type Severity Reaction Status Date / Time No Known Allergies Allergy Verified 09/28/19 17:42 Physical Exam Vitals: Vital Signs Temp Pulse Resp BP Pulse Ox 10/03/19 12:48 97.6 F 90 16 93/66 10/03/19 04:00 97.5 F L 110 H 18 108/76 92 L 10/02/19 21:00 97.5 F L 91 18 148/83 93 L Intake and Output 10/03/19 10/03/19 10/03/19 06:59 14:59 22:59 Intake Total 600 Output Total 500 400 Balance -500 600 -400 Intake: Oral 600 Output: Urine 500 400 Other: Voiding Method Urinal Urinal # Voids 2 2 # Bowel Movements 0 Weight 95.254 kg - Constitutional General appearance: no acute distress, obese - EENT Eyes: EOMI, PERRLA ENT: hearing grossly normal - Neck Neck: no lymphadenopathy - Respiratory Respiratory: right: diminished, left: CTA - Cardiovascular Rhythm: regular - Gastrointestinal General gastrointestinal: distended, no tenderness - Integumentary Integumentary: no rash - Neurologic Neurologic: CNII-XII intact - Psychiatric Psychiatric: A&O x's 3, appropriate affect Results CBC & Chem 7: 10/03/19 07:30 10/03/19 07:30 Labs: Abnormal Lab Results - Last 24 Hours (Table) 10/03/19 10/03/19 Range/Units 07:30 07:30 Neutrophils # 8.4 H (1.3-7.7) k/uL Lymphocytes # 0.3 L (1.0-4.8) k/uL Sodium 130 L (137-145) mmol/L Chloride 94 L (98-107) mmol/L Creatinine 0.45 L (0.66-1.25) mg/dL Glucose 158 H (74-99) mg/dL CT scan - abdomen: report reviewed, image reviewed CT scan - chest: report reviewed, image reviewed CT scan - pelvis: report reviewed, image reviewed MRI - head: report reviewed Assessment and Plan Plan: The patient is a 64-year-old male with a 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 He now presents with evidence of SVC syndrome complaining of facial swelling and dyspnea. 1. Dyspnea/SVC compression: I feel this likely represents a new lung primary cancer. The patient appears to have mediastinal adenopathy, particularly in the right precarinal region, and there is abrupt cut off of his right upper lobe bronchus and also apparently the right lower lobe bronchus with complete atelectasis. Biopsy of the liver lesion return consistent with adenocarcinoma, immunostains are pending and therefore origin is uncertain. This is not consistent with his prior history of head neck cancer. I recommended the patient initiate palliative radiotherapy to see if we can relieve some of his obstructive symptoms. I explained he would first needs CT simulation for treatment planning. I explained that a palliative course of radiotherapy would likely last 1-2 weeks in duration. I explained that we may improve his symptoms, and hopefully results in some lung opening. We will initiate his treatment tomorrow. 2. Newly diagnosed adenocarcinoma: Await final stains to help determine origin. After my review of the patient's neck CT, I'm not quite sure what the radiologist is referring to. There are no clear masses within the head neck tissues. The patient has some firmness on palpation of the left neck, likely representing postradiation fibrosis. He also has no upper airway symptoms, and therefore I do not see much benefit to fiberoptic examination under anesthesia. Time with Patient: Greater than 30
[2019-10-04] MEDS: HYDROmorphone 0.5 MG/0.5 ML SYRINGE IVP PRN ×6 (00:04→22:46)
[2019-10-04] MEDS: HEPARIN SODIUM,PORCINE 5,000 UNIT/ML 1 ML VIAL SQ SCH ×3 (00:06→17:50)
[2019-10-04] MEDS: DEXAMETHASONE SOD PHOSPHATE 4 MG/ML 1 ML VIAL IV SCH ×4 (00:07→17:50)
--- NOTE | 2019-10-04 01:40 | CONS ---
CONSULTATION DATE OF CONSULTATION: 10/03/2019 REASON FOR THE CONSULTATION: History of head and neck cancer with recent evidence of neck mass. HISTORY OF PRESENT ILLNESS: This patient is a 64-year-old male who originally was admitted to [facility] because of issues with constipation. The patient has a history of having been treated in the past for a head and neck carcinoma, specifically a base of tongue lesion, at the [facility] in [place]. The patient states that he was treated with chemotherapy and radiation. He thinks that the treatment occurred in 2004, but in actuality based upon information gleaned from the chart, it occurred in 2011. The patient has history of heavy smoking of 2 to 3 packs of cigarettes per day. He has recently been placed on Chantix and is down to approximately 1 to 2 packs of cigarettes per day. The patient is a poor historian and so much of the information has been gleaned from the patient's chart. The patient states that he was unable to keep his yearly follow-up visits, which is routine, because of the distance involved and because of medical issues. Therefore, he was lost to follow up with the [facility]. He complains that for the past year he has noticed that there has been a swelling or a lump in the left side of his neck. At the time of his original diagnosis, he states that there was not evidence of any lumps or masses in the left or right side of his neck. He is not complaining of any dysphagia, referred otalgia, or sore throat at this time. It is difficult to assess whether or not the patient has any shortness of breath because he is essentially bedridden and not able to exert himself because of other medical issues involving the musculoskeletal system. Since his admission he has undergone CT scans of the chest and of the head and neck. The head and neck CT did show evidence of a lesion/mass in the hypopharynx, but did not show lymphadenopathy because the CT scan was performed without any contrast. In addition to this, the extent of the mass was not able to be evaluated because of lack of contrast. A CT scan of the chest revealed evidence of enlarged mediastinal nodes and at least one significant lesion/mass in the lungs and also it was noted on the CT of the chest that there was a probable enlarged lymph node near the left carotid artery. Furthermore, there were enlarged lymph nodes in the mediastinum with a mass like density in the right pulmonary hilum extending into the mediastinum, which appeared to be consistent with tumor. A liver mass was noted on a CT scan of the abdomen and this has been biopsied with pathology pending. The patient does admit to having a poor appetite, but he is not sure how long this has been present. Overall, the patient appears to be in fairly poor health/condition. PAST MEDICAL HISTORY: Reveals he has no allergies to medications. His current medications include meloxicam, Dilantin, Mysoline, Flomax, oxycodone, Ventolin inhaler, Ditropan, and Chantix. There is no history of hypertension, asthma, or diabetes mellitus. There is a history of COPD. REVIEW OF SYSTEMS: Cardiovascular is essentially unremarkable. Respiratory is positive for COPD. Gastrointestinal is negative. Metabolic endocrine is negative. Neurological is positive for seizure disorder and generalized weakness. Remainder of review of systems is essentially unremarkable. PHYSICAL EXAMINATION: This patient is a 64-year-old male who is alert, cooperative, but he is a poor historian. HEENT EXAMINATION: Patient is normocephalic. Tympanic membranes are normal. Middle ear space is free of any fluid or infection. Pupils equal, round, reactive and accommodation. Intranasal examination reveals moderate to severe septal deviation with compensatory hypertrophy of the inferior turbinates and a moderate amount of mucus on the mucous membrane draining down posterior pharynx. Examination of oropharynx is essentially unremarkable. Palpation of the neck reveals patient has a firm mass located in the lower anterior cervical chain which is fairly well-circumscribed, nonmobile, nontender, nonfluctuant and dimension in size it appears to be approximately 2.5 to 3.5 cm. In addition to the enlarged lymph node on the left side, which most likely represents a group of matted lymph nodes, there are other smaller lymph nodes located on the anterior cervical chain on the right side. Cranial nerves 2 through 12 and the remainder of the head and neck exam are within normal limits. It is to be noted that the head and neck exam is extremely limited in this patient as well as all of the physical exam because of the fact that the patient is pretty much bedridden. He cannot turn on his left side, right side nor can he sit up in bed. Therefore, it is almost impossible to get an adequate examination of the hypopharynx. CHEST/CARDIOVASCULAR: Lung sounds are distant, but clear at this time. The patient appears to be in regular sinus rhythm. The remainder of the physical examination is essentially unremarkable, although it is noted that the patient's abdomen appears to be somewhat distended (ascites?). 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 This is quite common for base of tongue lesions, which was the patient's original diagnosis. I am sure that he received a full course irradiation for this. Generally these patients are given the maximum dose of radiation of 6500 to 7000 rads to the primary lesion with additional radiation given to both sides of neck with the knowledge that base of tongue tumors tend to have a history of seeding microscopic disease to the lymph nodes on one or both sides of the neck. Even if the patient's neck was negative at the time of his original diagnosis, he would most likely have received this radiation at that time. Hopefully, the records from [facility] could be obtained to see the dose of radiation that he was given. I am highly suspicious that the patient has a synchronous secondary carcinoma most likely involving the lungs with metastasis to the liver. Head and neck cancers generally do not show distant metastasis outside of the neck until extremely late in the disease and usually by then the patient has or is about to . In addition, it is unusual for cancers of other areas of the body such as the lung or liver to metastasize to the head and neck. Therefore, unfortunately, I feel that we are dealing with probably two separate cancers, one of the head and neck and the second cancer would most likely be in the lungs. It is not uncommon for base of tongue cancers to be associated with second carcinomas either concurrently or sequentially which are diagnosed in the upper aerodigestive tract. These type of patients if he is not able to have any further radiation, then the only other option would be chemotherapy, assuming the patient is interested in having any further therapy. Certainly, he is not a candidate for any type of surgical salvage, which would include a rodney-mandibulectomy, partial glossectomy and a radical neck dissection. This type of surgery is quite mutilating and with this patient's comorbid conditions, it would totally be not recommended for this patient considering his comorbidities. I spoke with the patient at length and advised him that we do not biopsy neck masses because doing so violates the protective tissue planes of the neck and generally it will condemn the patient to having to undergo a radical neck dissection in the very near future. Therefore, I feel that the lesion in the hypopharynx could be examined under general anesthesia and with a suspension microlaryngoscopy, a tissue biopsy could be done to obtain a diagnosis. This is a very unfortunate case because the patient's comorbidities and the presence of a second cancer certainly complicates any type of potential treatment. The patient is agreeable to having me perform a suspension microlaryngoscopy on him and therefore, I will see if I can place him on the schedule on Tuesday when I have other cases to undergo this procedure under general anesthesia, which takes approximately 20 and 25 minutes. At that time I will biopsy any masses/lesions found in the hypopharynx and this will be sent to Pathology for permanent sectioning. Again, biopsy of the neck mass is not recommended. Whatever the patient has in his hypopharynx, the chances are the neck disease is the same that is to say the lymphadenopathy/neck mass represents a metastasis from the lesion in the hypopharynx/base of tongue. I want to take this opportunity to thank you for allowing me to assist you in the care of your patient. If I could be of any further assistance, please feel free to call my office. YOSEF / RUCHI: [id number] /
[2019-10-04] MEDS: MORPHINE SULFATE 4 MG/ML SYRINGE IVP PRN ×4 (01:58→21:59)
[2019-10-04] MEDS: ALBUTEROL HFA INHALER INHALATION PRN ×2 (09:06→12:52)
[2019-10-04] MEDS: PANTOPRAZOLE 40 MG TABLET PO SCH ×2 (10:11→17:50)
[2019-10-04] MEDS: MELOXICAM 7.5 MG TAB PO SCH (10:12)
[2019-10-04] MEDS: VARENICLINE 1 MG TAB PO SCH ×2 (10:14→20:02)
[2019-10-04] MEDS: TAMSULOSIN 0.4 MG CAP.ER.24H PO SCH (10:14)
[2019-10-04] MEDS: PHENYTOIN SODIUM EXTENDED 100 MG CAP PO SCH ×2 (10:14→20:02)
[2019-10-04] MEDS: PRIMIDONE 50 MG TAB PO SCH ×2 (10:15→20:02)
[2019-10-04] MEDS: OXYBUTYNIN CHLORIDE 5 MG TAB PO SCH ×2 (10:15→20:02)
[2019-10-04] MEDS: polyethylene glycoL 3350 17 GM POWD.PACK PO SCH (10:15)
--- NOTE | 2019-10-04 12:08 | P.PN ---
Subjective Progress Note Date: 10/04/19 Principal diagnosis: right lung consolidation, atelectasis, right-sided pleural effusion and hilar mass, mediastinal lymphadenopathy and SVC syndrome A 64-year-old male patient with known history of throat/tongue cancer post- chemoradiation therapy back in 2011 and addition to history of hepatitis C, hypertension. Disorder and smoking. The patient came into the hospital because of constipation. He denied having any significant shortness of breath. However further investigation with a chest x-ray showed volume loss and right upper lobe atelectasis. There was also a CAT scan of the abdomen and pelvis that was done showed abnormalities in the right lung base along with right-sided pleural effusion and compressive atelectasis of the right lower lobe. This led to a CAT scan of the chest that showed a right-sided pleural effusion i on the right lung is consolidated and atelectatic in its entirety. There are multiple enlarged mediastinal lymph nodes. There appears to be displacement of the superior vena cava with an enlarged lymph node that is measuring up to 3 cm in size. There are other smaller lymph nodes that measure up to 1.5 cm in size. There is also an irregular 5 cm low density mass in the lateral right lower lobe of the liver consistent with tumor. The CAT scan of the neck was also done and showed an asymmetric increased soft tissue density in the hypopharyngeal area on the left with wall thickening that could be related to a tumor. Based on all this findings, an ultrasound-guided biopsy of the liver was done by interventional radiology on the biopsy results are still pending for now. Apparently consultation was requested regarding the above-mentioned abnormalities. I saw the patient. Clinically is early signs of SVC syndrome with significant swelling of the right upper extremity. The patient is currently on oxygen 3 L per minute nasal cannula. No hemoptysis. He is a chronic smoker. He is having some exertional dyspnea for now. He is unable to walk. He is quite weak and his overall performance and functional status is extremely impaired. On 10/03/2019 patient seen in follow-up on the medical oncology unit. he is awake and alert, he remains generally weak, he is in no acute distress, complaining of right arm swelling, and right shoulder discomfort. liver biopsy results are still pending for now. Patient is undergoing ENT evaluation and possible biopsy of the left neck submandibular note. We discussed case with radiation oncology, who is awaiting results of the liver biopsy. The plan is to proceed with radiation therapy in case of non-small cell lung cancer primary, and chemotherapy in case of small cell lung cancer. nterim patient remains on 3 L of oxygen with pulse ox of 92-94%, he is been afebrile, does become short of breath with any exertion, he has been on bed rest. On 10/04/2019 patient seen in follow-up on medical oncology unit. He states he does feel dyspneic, but no acute distress, he has been coughing up some yellow colored phlegm, lung sounds are positive for diminished breath sounds bi laterally, no significant rhonchi or wheezing. He is on 3 L of oxygen with pulse ox of 91%. Hemodynamically stable, patient has been afebrile. Liver biopsy is still pending for now, right arm swelling remains without significant change, patient has some right facial swelling as well, right shoulder pain seemed to have subsided some. Patient is tolerating oral intake, no difficulty swallowing. Patient continues on Decadron, pain medications. No stridor, no upper airway symptoms. ENT was consulted for possible biopsy of the hypopharyngeal mass with left neck mass Objective - Vital Signs Vital signs: Vital Signs Temp 98.2 F 10/04/19 04:55 Pulse 103 H 10/04/19 04:55 Resp 20 10/04/19 04:55 BP 137/79 10/04/19 04:55 Pulse Ox 91 L 10/04/19 04:55 Intake & Output 10/03/19 10/04/19 10/04/19 18:59 06:59 18:59 Intake Total 600 500 Output Total 800 Balance -200 500 Weight 95.254 kg Intake: Oral 600 500 Output: Urine 800 Other: Voiding Method Urinal Urinal # Voids 2 1 2 - Exam GENERAL EXAM: Alert, active, appears generally weak, 3 L of oxygen with pulse ox of 93%, comfortable in no apparent distress. HEAD: Normocephalic/atraumatic. EYES: Normal reaction of pupils, equal size. Conjunctiva pink, sclera white. NOSE: Clear with pink turbinates. THROAT: No erythema or exudates. NECK: no JVD, no thyroid enlargement, possible adenopathy in the left anterior cervical area possibly submandibular CHEST: No chest wall deformity. Symmetrical expansion. LUNGS: absent breath sounds on the right, and diminished breath sounds with wheezing and a few rhonchi on the left CVS: Regular rate and rhythm, normal S1 and S2, no gallops, no murmurs, no rubs ABDOMEN: Soft, nontender. No hepatosplenomegaly, normal bowel sounds, no guarding or rigidity. EXTREMITIES: No clubbing, no cyanosis, 2+ pulses and upper and lower extremities. there is nonpitting edema involving right arm, range of motion is limited, with significant right shoulder discomfort with any movement of the right arm MUSCULOSKELETAL: Muscle strength and tone normal. SPINE: No scoliosis or deformity SKIN: No rashes CENTRAL NERVOUS SYSTEM: Alert and oriented -3. No focal deficits, tone is normal in all 4 extremities. PSYCHIATRIC: Alert and oriented -3. Appropriate affect. Intact judgment and insight. - Labs CBC & Chem 7: 10/03/19 07:30 10/03/19 07:30 Assessment and Plan Plan: Assessment: 1 right lung consolidation/atelectasis in addition to her right-sided pleural effusion and hilar mass and mediastinal lymphadenopathy consistent with lung cancer 2 right-sided pleural effusion with presence of a trapped lung with tumor obstructing the right upper lobe bronchus and distal bronchus intermedius. Consider malignant pleural effusion. Consider reactive pleural effusion following lung collapse. 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 Seizure Disorder 10 BPH 11 chronic constipation 12 smoker Plan: No worsening dyspnea, continue breathing treatments, continue steroids. Awaiting results of the liver core biopsy. Encouraged patient to sit up in the chair, deep breathing and coughing. Vital signs remain stable overnight. Afebrile, patient has usual cough and some phlegm production. Sputum was sent for culture. No acute events overnight, will await results of liver pathology. I performed a history & physical examination of the patient and discussed their management with my nurse practitioner, Nancy Levine. I reviewed the nurse practitioner's note and agree with the documented findings and plan of care. Lung sounds are positive for absent breath Sounds on the Right. The findings and the impression was discussed with the patient. I attest to the documentation by the nurse practitioner. Time with Patient: Less than 30
--- NOTE | 2019-10-04 15:10 | P.PN ---
Subjective Progress Note Date: 10/04/19 Principal diagnosis: Abdominal pain secondary to metastatic cancer. Patient is a 64-year-old male with a known history of throat cancer status post chemo and radiation, chronic hepatitis C, hypertension, seizure disorder and BPH and also currently everyday smoker presented to ER with complaints of abdominal pain mainly right lower quadrant and generalized pain. Patient does have history of throat cancer and is currently able to eat but cannot taste. Denied any complaints of chest pain or shortness of breath. Patient states that he has been constipated for the past 4 to 5 days. Does pass flatus. Denies any fever or chills. No cough or sputum production. No headache or dizziness or lightheadedness. Chest x-ray showed findings may represent postobstructive atelectasis in the right upper lobe CT of the abdomen pelvis showed findings consistent with metastatic disease. Right pleural effusion. Right upper lobe atelectasis as described on the chest x-ray report. Right-sided nephrolithiasis. Additional findings as above. EKG showed normal sinus rhythm. CT of the chest showed right-sided hydrothorax with masslike density in the right pulmonary hilum extending into the mediastinum consistent with tumor. Consolidation atelectasis of the entire right lung small left pleural effusion. Nonspecific density adjacent to the pleura in the posterior superior segment of the left lower lobe. Large liver lesion consistent with tumor. CT soft tissue neck showed asymmetric increased soft tissue density in the hypopharynx on the left side with wall thickening that could relate to tumor. Laboratory data showed WBC 10.8, hemoglobin 13.6, platelets 292 and sodium 131, potassium 3.1 and chloride 94 BUN 16 and creatinine 0.64 lactic acid 1.3 Troponin x1- proBNP 152 COVID-19 PCR negative. 09/30/2019 Patient is currently lying in the bed comfortably. Abdominal pain is improved with morphine. Patient is able to tolerate soft diet. Otherwise patient doesn't have any bowel movement for the last few days. Patient had enema done yesterday and also attending stool softeners and laxatives. Otherwise patient has been afebrile. Oncology is on board. 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 10/01/2019 Patient is seen and evaluated and follow-up with no acute overnight issues. Patient continues to request morphine often per nursing staff. Oncology following the patient recommending biopsy of the liver and Doppler. Doppler done of the right upper extremity which was negative for DVT at this time. When discussing with patient about treatment plan patient states he is unsure at this time but is agreeable to further testing and will await biopsy with interventional radiology to discuss further treatment options. Patient states he has some shortness of breath and is currently maintained on 3 L of oxygen via nasal cannula although no reports of chest pain or palpitations. Patient is afebrile. No reports of nausea or vomiting but does have some abdominal discomfort as patient states he has not had a bowel movement in 3 weeks. Patient had been taking large amounts of narcotics in the outpatient setting. 10/02/2019 Patient is seen in follow-up today and continues to have generalized pain and weakness and is being closely monitored. Per nursing staff patient made comments of being too weak to get up out of the bed and PT/OT therapy consulted and pending at this time. Patient had a brain MRI for diagnostic purposes yesterday showing no MRI evidence for suspicious enhancing intraparenchymal mass to suggest metastatic disease to the brain and back from mild to moderate diffuse cerebral atrophy and small chronic vessel ischemic changes noted. Patient also had liver biopsy with pathology pending. Oncology is following. Case management is to discuss with patient about possible discharge planning needs as patient states he wants to return home with his son-in-law once discharged. Awaiting PT/OT eval for possible home care once discharged. Currently no reports of chest pain, worsening shortness of breath, or palpitations. Patient is afebrile. No reports of nausea or vomiting and patient is tolerating diet. Patient continues to deny bowel movements at this time. Patient did receive an enema. 10/04/2019 Patient is seen and evaluated today with no acute overnight issues. Patient underwent some radiation therapy with radiation oncology today. Patient awaiting to undergo possible biopsy with ENT tomorrow. Patient continues to have dyspnea and is quite fatigued and lethargic. Discussed with the patient about increasing activity as tolerated sitting up in the chair more often. Patient is currently maintained on bronchodilators and will continue at this time. Patient's prognosis continues to be quite guarded and poor although patient is proceeding with treatment for palliation. Oncology following closely. Currently patient has no reports of chest pain, worsening shortness of breath, or palpitations. Patient is afebrile. No reports of nausea or vomiting and patient is tolerating diet. Patient was nothing by mouth for this morning's procedure requesting something to eat. Will resume diet. Objective - Vital Signs Vital signs: Vital Signs Temp 98.2 F 10/04/19 04:55 Pulse 103 H 10/04/19 04:55 Resp 20 10/04/19 04:55 BP 137/79 10/04/19 04:55 Pulse Ox 91 L 10/04/19 04:55 Intake & Output 10/03/19 10/04/19 10/04/19 18:59 06:59 18:59 Intake Total 600 500 Output Total 800 Balance -200 500 Weight 95.254 kg Intake: Oral 600 500 Output: Urine 800 Other: Voiding Method Urinal Urinal # Voids 2 1 2 - Exam Patient is lying in the bed. No acute distress., awake alert and oriented 3. HEENT: Normocephalic. Neck is supple. Pupils reactive. Nostrils clear. Oral cavity is moist. Ears reveal no drainage. Nasal cannula noted Neck reveals no JVD, carotid bruits, or thyromegaly. CHEST EXAMINATION: Trachea is central. Symmetrical expansion. Diminished breath sounds bilaterally with some scattered rhonchi noted CARDIAC: Normal S1, S2 with no gallops. No murmurs ABDOMEN: Soft. nontender. Bowel sounds present. Mildly Distended. No abdominal bruits. Extremities: reveal no edema. No clubbing or cyanosis Neurologically awake, alert, oriented x2-3 with well-coordinated movements. No focal deficits noted, few slightly week Skin: No rash or skin lesions. Psychiatric: Cooperative. Musculoskeletal: No joint swelling or deformity. Normal range of motion. 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 Consolidation and atelectasis of the entire right lung and small left pleural effusion Postobstructive atelectasis Throat cancer status post chemo and radiation. Hepatitis C infection Hypertension History of seizure disorder BPH Hypovolemic hyponatremia Chronic constipation DVT prophylaxis Plan: Patient will be continued on pain management, current medications, management, and symptomatic treatment. Multiple medical consultations along with radiation oncology following. Patient scheduled to possibly have a biopsy with ENT on Tuesday. Oncology following. Prognosis poor at this time. Liver biopsy still pending at this time Further recommendations to follow based on clinical course.
--- NOTE | 2019-10-04 15:33 | P.PN ---
Subjective Progress Note Date: 10/04/19 Principal diagnosis: New picture concerning for malignancy Radiation has been initiated, Path of liver pending, dex to continue, and plan for biopsy by ENT in am on 10/05/19. Objective - Vital Signs Vital signs: Vital Signs Temp 98.3 F 10/04/19 13:51 Pulse 89 10/04/19 14:55 Resp 20 10/04/19 14:55 BP 106/71 10/04/19 14:55 Pulse Ox 93 L 10/04/19 14:55 Intake & Output 10/03/19 10/04/19 10/04/19 18:59 06:59 18:59 Intake Total 600 500 720 Output Total 800 275 Balance -200 500 445 Weight 95.254 kg Intake: Oral 600 500 720 Output: Urine 800 275 Other: Voiding Method Urinal Urinal Urinal # Voids 2 1 2 - Exam - Constitutional General appearance: average body habitus, cooperative, no acute distress - EENT Eyes: EOMI, PERRLA, poor dentition ENT: NA/AT, normal oropharynx - Neck Left neck palpable Neck: lymphadenopathy - Respiratory Respiratory: bilateral: diminished, rhonchi - Cardiovascular Rhythm: regular Heart sounds: normal: S1, S2 - Gastrointestinal General gastrointestinal: decreased bowel sounds, soft - Integumentary Integumentary: pale Unilateral upper extremity edema - Neurologic non-focal - Musculoskeletal Musculoskeletal: generalized weakness, strength equal bilaterally - Psychiatric Psychiatric: A&O x's 3, appropriate affect, intact judgment & insight - Labs CBC & Chem 7: 10/03/19 07:30 10/03/19 07:30 Assessment and Plan Plan: Assessment and Recommendations: SVC Syndroms: - XRT started. Discussed with Dr. Bro - Continue Dexamethasone q6 - PPI Abnormal Liver Findings: - Concerning for malignancy - IR for Biopsy 09/30 Await Path Mediastinal Adenopathy: - Pulm consult regarding mediastinal pathology. - no plan for bronch at this time Constipation: - No response to fleets - minimal flatulence HX: head neck: - The new finding not likely related - Consult place for left neck submanibular node with ENT, they are planning on Head and neck biopsy 10/05/19 Plan PET as out patient Plan: - Continue Radiation - Continue Dex/PPI - Plan ENT bx in am - Await path - PT/OT physician Attest : I have completed full history and physical and agree with above dictation. dictated as a scribe
[2019-10-04] MEDS: IPRATROPIUM-ALBUTEROL 3 ML NEB INHALATION SCH ×2 (16:08→19:53)
[2019-10-05] MEDS: HEPARIN SODIUM,PORCINE 5,000 UNIT/ML 1 ML VIAL SQ SCH ×3 (00:11→17:25)
[2019-10-05] MEDS: DEXAMETHASONE SOD PHOSPHATE 4 MG/ML 1 ML VIAL IV SCH ×4 (00:12→17:25)
[2019-10-05] MEDS: MORPHINE SULFATE 4 MG/ML SYRINGE IVP PRN ×5 (01:44→19:09)
[2019-10-05] MEDS: HYDROmorphone 0.5 MG/0.5 ML SYRINGE IVP PRN ×5 (02:57→22:54)
[2019-10-05] MEDS: PHENYTOIN SODIUM EXTENDED 100 MG CAP PO SCH ×2 (08:24→20:14)
[2019-10-05] MEDS: PRIMIDONE 50 MG TAB PO SCH ×2 (08:24→20:15)
[2019-10-05] MEDS: IPRATROPIUM-ALBUTEROL 3 ML NEB INHALATION SCH ×4 (08:48→20:32)
[2019-10-05] MEDS ORDERED: LACTATED RINGERS 1,000 ML IV ONE (09:50)
[2019-10-05] MEDS: VARENICLINE 1 MG TAB PO SCH ×2 (10:42→20:15)
[2019-10-05] MEDS: PANTOPRAZOLE 40 MG TABLET PO SCH ×2 (10:42→17:25)
[2019-10-05] MEDS: MELOXICAM 7.5 MG TAB PO SCH (10:43)
[2019-10-05] MEDS: polyethylene glycoL 3350 17 GM POWD.PACK PO SCH (10:44)
[2019-10-05] MEDS: OXYBUTYNIN CHLORIDE 5 MG TAB PO SCH ×2 (10:44→20:14)
[2019-10-05] MEDS: TAMSULOSIN 0.4 MG CAP.ER.24H PO SCH (10:45)
--- NOTE | 2019-10-05 13:02 | PN ---
PROGRESS NOTE DATE OF SERVICE: 10/05/2019. SUBJECTIVE: Unchanged since the last examination. OBJECTIVE: Unchanged since last examination. 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 PLAN: The patient was scheduled for and taken to surgery for a suspension microlaryngoscopy with biopsy of lesion of the hypopharynx. However, after consultation with the Anesthesia Department, it was felt that the patient was too extreme an anesthesia risks to perform surgery. That is to say, the Anesthesia Department felt that the patient might possibly have significant difficulty being extubated and there was a high probability that he would end up intubated, on a respirator, and subsequently he might be placed in the ICU. At the time the patient was in the pre-surgical area, he complained that he was short of breath, which he had been experiencing for the last several days. Unfortunately, this procedure cannot be done under local anesthesia because the airway has to be protected during the procedure because any biopsies in the hypopharynx will cause some bleeding. 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 MMODL / IJN: [id number] / ANNE
--- NOTE | 2019-10-05 14:49 | P.PN ---
Subjective Progress Note Date: 10/05/19 Principal diagnosis: New picture concerning for malignancy Biopsy revealed adenocarcinoma consistent with GI or Pancreatobiliary, although it is felt this could still be a lung primay, we will further evaluate EGS and colonoscopy. Objective - Vital Signs Vital signs: Vital Signs Temp 97.6 F 10/05/19 14:23 Pulse 112 H 10/05/19 14:23 Resp 17 10/05/19 14:23 BP 106/73 10/05/19 14:23 Pulse Ox 92 L 10/05/19 14:23 Intake & Output 10/04/19 10/05/19 10/05/19 18:59 06:59 18:59 Intake Total 2160 240 0 Output Total 550 680 Balance 1610 -440 0 Intake: Oral 2160 240 0 Output: Urine 550 680 Other: Voiding Method Urinal Urinal # Voids 4 - Exam - Constitutional General appearance: average body habitus, cooperative, no acute distress - EENT Eyes: EOMI, PERRLA, poor dentition ENT: NA/AT, normal oropharynx - Neck Left neck palpable Neck: lymphadenopathy - Respiratory Respiratory: bilateral: diminished, rhonchi - Cardiovascular Rhythm: regular Heart sounds: normal: S1, S2 - Gastrointestinal General gastrointestinal: decreased bowel sounds, soft - Integumentary Integumentary: pale Unilateral upper extremity edema - Neurologic non-focal - Musculoskeletal Musculoskeletal: generalized weakness, strength equal bilaterally - Psychiatric Psychiatric: A&O x's 3, appropriate affect, intact judgment & insight - Labs CBC & Chem 7: 10/03/19 07:30 10/03/19 07:30 Assessment and Plan Plan: Assessment and Recommendations: SVC Syndroms: - XRT started. Discussed with Dr. Bro - Continue Dexamethasone q6 - PPI Abnormal Liver Findings: - Concerning for malignancy - IR for Biopsy 09/30 - Path results state consistent with GI or pancreaticbiliary. The picture appears consistent with a lung cancer, although possibility of two primaries must be considered. Will further evaluate with EGD, COlonoscopy and MRI liver. When felt to be safe may need tissue biopsy from lung, although at this time with his compressive situation the risk is too great. Mediastinal Adenopathy: - Pulm consult regarding mediastinal pathology. - no plan for bronch at this time Constipation: - No response to fleets - minimal flatulence HX: head neck: - The new finding not likely related - Consult place for left neck submanibular node with ENT, they are planning on Head and neck biopsy 10/05/19 Plan PET as out patient Plan: - Continue Radiation - Continue Dex/PPI - Await EGD and COlonoscopy - Once stable may need to consider possibility of two simulataneous primary lesions (lung and GI) - Await further diagnostics. Physician Attest: I have completed full history and physical and agree with above dictation, dictated as a scribe
--- NOTE | 2019-10-05 15:32 | P.PN ---
Subjective Progress Note Date: 10/05/19 Principal diagnosis: Abdominal pain secondary to metastatic cancer. Patient is a 64-year-old male with a known history of throat cancer status post chemo and radiation, chronic hepatitis C, hypertension, seizure disorder and BPH and also currently everyday smoker presented to ER with complaints of abdominal pain mainly right lower quadrant and generalized pain. Patient does have history of throat cancer and is currently able to eat but cannot taste. Denied any complaints of chest pain or shortness of breath. Patient states that he has been constipated for the past 4 to 5 days. Does pass flatus. Denies any fever or chills. No cough or sputum production. No headache or dizziness or lightheadedness. Chest x-ray showed findings may represent postobstructive atelectasis in the right upper lobe CT of the abdomen pelvis showed findings consistent with metastatic disease. Right pleural effusion. Right upper lobe atelectasis as described on the chest x-ray report. Right-sided nephrolithiasis. Additional findings as above. EKG showed normal sinus rhythm. CT of the chest showed right-sided hydrothorax with masslike density in the right pulmonary hilum extending into the mediastinum consistent with tumor. Consolidation atelectasis of the entire right lung small left pleural effusion. Nonspecific density adjacent to the pleura in the posterior superior segment of the left lower lobe. Large liver lesion consistent with tumor. CT soft tissue neck showed asymmetric increased soft tissue density in the hypopharynx on the left side with wall thickening that could relate to tumor. Laboratory data showed WBC 10.8, hemoglobin 13.6, platelets 292 and sodium 131, potassium 3.1 and chloride 94 BUN 16 and creatinine 0.64 lactic acid 1.3 Troponin x1- proBNP 152 COVID-19 PCR negative. 09/30/2019 Patient is currently lying in the bed comfortably. Abdominal pain is improved with morphine. Patient is able to tolerate soft diet. Otherwise patient doesn't have any bowel movement for the last few days. Patient had enema done yesterday and also attending stool softeners and laxatives. Otherwise patient has been afebrile. Oncology is on board. 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 10/01/2019 Patient is seen and evaluated and follow-up with no acute overnight issues. Patient continues to request morphine often per nursing staff. Oncology following the patient recommending biopsy of the liver and Doppler. Doppler done of the right upper extremity which was negative for DVT at this time. When discussing with patient about treatment plan patient states he is unsure at this time but is agreeable to further testing and will await biopsy with interventional radiology to discuss further treatment options. Patient states he has some shortness of breath and is currently maintained on 3 L of oxygen via nasal cannula although no reports of chest pain or palpitations. Patient is afebrile. No reports of nausea or vomiting but does have some abdominal discomfort as patient states he has not had a bowel movement in 3 weeks. Patient had been taking large amounts of narcotics in the outpatient setting. 10/02/2019 Patient is seen in follow-up today and continues to have generalized pain and weakness and is being closely monitored. Per nursing staff patient made comments of being too weak to get up out of the bed and PT/OT therapy consulted and pending at this time. Patient had a brain MRI for diagnostic purposes yesterday showing no MRI evidence for suspicious enhancing intraparenchymal mass to suggest metastatic disease to the brain and back from mild to moderate diffuse cerebral atrophy and small chronic vessel ischemic changes noted. Patient also had liver biopsy with pathology pending. Oncology is following. Case management is to discuss with patient about possible discharge planning needs as patient states he wants to return home with his son-in-law once discharged. Awaiting PT/OT eval for possible home care once discharged. Currently no reports of chest pain, worsening shortness of breath, or palpitations. Patient is afebrile. No reports of nausea or vomiting and patient is tolerating diet. Patient continues to deny bowel movements at this time. Patient did receive an enema. 10/04/2019 Patient is seen and evaluated today with no acute overnight issues. Patient underwent some radiation therapy with radiation oncology today. Patient awaiting to undergo possible biopsy with ENT tomorrow. Patient continues to have dyspnea and is quite fatigued and lethargic. Discussed with the patient about increasing activity as tolerated sitting up in the chair more often. Patient is currently maintained on bronchodilators and will continue at this time. Patient's prognosis continues to be quite guarded and poor although patient is proceeding with treatment for palliation. Oncology following closely. Currently patient has no reports of chest pain, worsening shortness of breath, or palpitations. Patient is afebrile. No reports of nausea or vomiting and patient is tolerating diet. Patient was nothing by mouth for this morning's procedure requesting something to eat. Will resume diet. 10/05/2019 Patient is seen and evaluated in follow-up today and continues to be extremely lethargic and weak and not eating very well. Attempts for possible biopsy or laryngoscope with ENT was not performed as the procedure is too risky. Recommending possible PET scan in the outpatient setting. Oncology following closely and placed a consult for GI for possible EGD and colonoscopy to further diagnose and determine treatment plan. Patient continues to work with physical therapy and they are recommending subacute rehab although patient still would like to go home with [facility] once discharged. Case management and social work to continue following for possible discharge planning needs. The patient has no reports of chest pain or palpitations. Patient continues to have shortness of breath although has not worsened. Patient is afebrile. No reports of nausea or vomiting and patient is tolerating diet although continues to have a poor oral intake. Objective - Vital Signs Vital signs: Vital Signs Temp 97.3 F L 10/05/19 09:53 Pulse 92 10/05/19 09:53 Resp 22 10/05/19 09:53 BP 110/74 10/05/19 09:53 Pulse Ox 93 L 10/05/19 09:53 Intake & Output 10/04/19 10/05/19 10/05/19 18:59 06:59 18:59 Intake Total 2160 240 0 Output Total 550 680 Balance 1610 -440 0 Intake: Oral 2160 240 0 Output: Urine 550 680 Other: Voiding Method Urinal Urinal # Voids 4 - Exam Patient is lying in the bed. No acute distress., awake alert and oriented 3. HEENT: Normocephalic. Neck is supple. Pupils reactive. Nostrils clear. Oral cavity is moist. Ears reveal no drainage. Nasal cannula noted. Mild facial swelling noted left Neck reveals no JVD, carotid bruits, or thyromegaly. CHEST EXAMINATION: Trachea is central. Symmetrical expansion. Diminished breath sounds bilaterally with some scattered rhonchi noted CARDIAC: Normal S1, S2 with no gallops. No murmurs ABDOMEN: Soft. nontender. Bowel sounds present. Mildly Distended. No abdominal bruits. Extremities: reveal no edema. No clubbing or cyanosis Neurologically awake, alert, oriented x2-3 with well-coordinated movements. No focal deficits noted, few slightly weak Skin: No rash or skin lesions. Psychiatric: Cooperative. Musculoskeletal: No joint swelling or deformity. Normal range of motion. 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 Consolidation and atelectasis of the entire right lung and small left pleural effusion Postobstructive atelectasis Throat cancer status post chemo and radiation. Hepatitis C infection Hypertension History of seizure disorder BPH Hypovolemic hyponatremia Chronic constipation DVT prophylaxis Plan: Patient will be continued on pain management, current medications, management, and symptomatic treatment. Multiple medical consultations along with radiation oncology following. GI consulted for possible plans of EGD and colonoscopy to f urther diagnose and aid in treatment plan. Oncology following. Prognosis poor at this time. Liver biopsy shows Metastatic adenocarcinoma most consistent with primary upper gastrointestinal or pancreatobiliary tract origin. Further recommendations to follow based on clinical course.
[2019-10-06] MEDS: DEXAMETHASONE SOD PHOSPHATE 4 MG/ML 1 ML VIAL IV SCH ×4 (00:10→17:11)
[2019-10-06] MEDS: MORPHINE SULFATE 4 MG/ML SYRINGE IVP PRN ×6 (00:10→21:16)
[2019-10-06] MEDS: HEPARIN SODIUM,PORCINE 5,000 UNIT/ML 1 ML VIAL SQ SCH ×3 (00:10→15:48)
[2019-10-06] MEDS: HYDROmorphone 0.5 MG/0.5 ML SYRINGE IVP PRN ×4 (02:15→15:48)
[2019-10-06] MEDS: ALBUTEROL HFA INHALER INHALATION PRN (06:04)
[2019-10-06] MEDS ORDERED: METOCLOPRAMIDE 5 MG/ML 2 ML VIAL IVP PRN (08:03)
[2019-10-06] MEDS ORDERED: ONDANSETRON 4 MG/2 ML VIAL IVP ONE (08:03)
[2019-10-06] MEDS ORDERED: LIDOCAINE 1% (10MG/ML) FOR IV START INTRADERMA PRN (08:03)
[2019-10-06] MEDS ORDERED: DEXAMETHASONE SOD PHOSPHATE 10 MG/ML 1 ML VIAL IV ONE (08:03)
[2019-10-06] MEDS ORDERED: HYDROmorphone 0.5 MG/0.5 ML SYRINGE IVP PRN (08:03)
[2019-10-06] MEDS: OXYBUTYNIN CHLORIDE 5 MG TAB PO SCH ×2 (08:07→20:32)
[2019-10-06] MEDS: VARENICLINE 1 MG TAB PO SCH ×2 (08:07→20:32)
[2019-10-06] MEDS: MELOXICAM 7.5 MG TAB PO SCH (08:07)
[2019-10-06] MEDS: PRIMIDONE 50 MG TAB PO SCH ×2 (08:07→20:32)
[2019-10-06] MEDS: TAMSULOSIN 0.4 MG CAP.ER.24H PO SCH (08:08)
[2019-10-06] MEDS: PHENYTOIN SODIUM EXTENDED 100 MG CAP PO SCH ×2 (08:08→20:32)
[2019-10-06] MEDS: PANTOPRAZOLE 40 MG TABLET PO SCH ×2 (08:08→17:11)
[2019-10-06] MEDS: polyethylene glycoL 3350 17 GM POWD.PACK PO SCH ×2 (08:09→08:11)
[2019-10-06] MEDS: IPRATROPIUM-ALBUTEROL 3 ML NEB INHALATION SCH ×4 (09:20→20:17)
[2019-10-06] MEDS: LACTATED RINGERS 1,000 ML IV SCH (10:34)
[2019-10-06 10:41] LABS: Basophils % (A) 0 %; Eosinophils # (A) 0.1 k/uL (0-0.7); Eosinophils % (A) 1 %; HCT 41.3 % (39.0-53.0); HGB 13.6 gm/dL (13.0-17.5); Lymphocytes # (A) 0.4 k/uL (1.0-4.8); Lymphocytes % (A) 3 %; MCH 31.2 pg (25.0-35.0); MCHC 32.9 g/dL (31.0-37.0); MCV 94.8 fL (80.0-100.0); Mean Platelet Volume 7.9; Monocytes # (A) 0.7 k/uL (0-1.0); Monocytes % (A) 6 %; Neutrophils # (A) 11.9 k/uL (1.3-7.7); Neutrophils % (A) 90 %; Platelet Count 294 k/uL (150-450); RBC 4.35 m/uL (4.30-5.90); RDW 14.2 % (11.5-15.5); WBC 13.3 k/uL (3.8-10.6)
[2019-10-06 10:48] LABS: African American GFR (CKD) >90 (>60 ml/min/1.73 sqM); Anion Gap 6 mmol/L; Blood Urea Nitrogen 18 mg/dL (9-20); Calcium 9.6 mg/dL (8.4-10.2); Carbon Dioxide 30 mmol/L (22-30); Chloride 92 mmol/L (98-107); Glucose 158 mg/dL (74-99); Non-African American GFR(CKD) >90 (>60 ml/min/1.73 sqM); Potassium 4.8 mmol/L (3.5-5.1); Sodium 128 mmol/L (137-145)
--- NOTE | 2019-10-06 15:58 | MR ---
EXAMINATION TYPE: MR pancreas without and with contrast. MRCP DATE OF EXAM: 10/06/2019 COMPARISON: Correlation CT abdomen 09/28/2019 HISTORY: 84-year-old male Abdominal pain, evaluate metastatic disease Technique: Multiplanar, multisequence images of the abdomen were obtained before and after administra tion of 9.5 mL intravenous Gadavist gadolinium contrast. Highly T2 weighted images of the pancreatic biliary system for MRCP. Rotational 3-D reconstructions generated on a dedicated independent workstat ion. FINDINGS: There is generalized anasarca change. Continued large right pleural effusion. New small left pleural effusion. Diffuse abnormal masslike thickening of the right adrenal gland measuring up to 2.2 cm thick. Lesser degree of thickening of the left adrenal gland. Status post cholecystectomy. Bile duct mildly dilated 8 mm probably due to postcholecystectomy status . MRCP images show no definite suspicious filling defect. Numerous bilateral renal cysts, largest centrally in the right kidney measuring up to 6.2 cm. Spleen and pancreas show no gross abnormal abnormality. Numerous mildly enlarged retroperitoneal lymph nodes measuring up to 1.2 cm short axis. Heterogeneously enhancing right liver lobe mass measures 4.0 cm. Approximately 5 immediately adjacent satellite nodules are present measuring up to 1 cm. Portal venous system is patent. There are abnormal enhancing foci within the visualized spine suggestive of osseous metastatic diseas e occult on CT. IMPRESSION: 1. Right hepatic lobe neoplasm, suspected metastatic disease measuring 4.0 cm. Approximately 5 satell ite nodules are present immediately adjacent to the mass measuring up to 1 cm. 2. Retroperitoneal metastatic lymphadenopathy measuring up to 1.2 cm short axis. 3. Abnormal thickening of the right greater than left adrenal glands suspicious for metastatic diseas e as well. 4. Continued large right pleural effusion. New small left pleural effusion. Given the abnormal soft t issue in the right hilum on the 09/29/2019 CT chest, consider a thoracic primary. 5. Additional findings highly suspicious of diffuse osseous metastatic disease.
[2019-10-06] MEDS ORDERED: PEG 3350-NA SULF,BICARB,CL/KCL 4,000 ML BOTTLE PO ONE (17:00)
[2019-10-06] MEDS ORDERED: bisacodyL 5 MG TABLET.DR PO ONE (17:00)
[2019-10-06] MEDS ORDERED: DEXTROSE 5%-0.9% NACL 1,000 ML IV SCH (23:45)
[2019-10-07] MEDS: HYDROmorphone 0.5 MG/0.5 ML SYRINGE IVP PRN ×6 (00:22→23:02)
[2019-10-07] MEDS: DEXAMETHASONE SOD PHOSPHATE 4 MG/ML 1 ML VIAL IV SCH ×5 (00:25→23:02)
[2019-10-07] MEDS: HEPARIN SODIUM,PORCINE 5,000 UNIT/ML 1 ML VIAL SQ SCH ×4 (00:25→23:02)
[2019-10-07] MEDS: LIDOCAINE 5% PATCH TOPICAL SCH ×2 (00:50→08:17)
--- NOTE | 2019-10-07 01:40 | XR ---
EXAMINATION TYPE: XR abdomen 1V DATE OF EXAM: 10/07/2019 COMPARISON: 05/18/2012 HISTORY: Abdominal pain TECHNIQUE: 2 views supine FINDINGS: There are multiple dilated air-filled loops of large bowel. I see no evidence of free air. There are clips from cholecystectomy. Bony structures are intact. IMPRESSION: Dilated large bowel could relate to severe ileus or distal mechanical large bowel obstruc tion. This is a change compared to old exam. No free air. CT scan would be helpful for further evalua tion if clinically indicated.
--- NOTE | 2019-10-07 01:43 | XR ---
EXAMINATION TYPE: XR chest 1V portable DATE OF EXAM: 10/07/2019 COMPARISON: 09/28/2019 HISTORY: Short of breath. Abdominal pain. TECHNIQUE: Portable upright view FINDINGS: There is significant opacification of the right hemithorax consistent with large right pleu ral effusion and masslike consolidation of the right upper lobe. The left lung is fairly clear. There is no gross heart failure. Heart size is normal. IMPRESSION: There is increased pleural fluid and right upper lobe consolidation compared to recent ex am. No heart failure seen.
[2019-10-07 01:44] LABS: Glucose,Whole Blood 126 mg/dL (75-99)
[2019-10-07 02:31] LABS: Basophils # (A) 0.1 k/uL (0-0.2); Basophils % (A) 0 %; Eosinophils # (A) 0.1 k/uL (0-0.7); Eosinophils % (A) 1 %; HCT 43.2 % (39.0-53.0); HGB 14.2 gm/dL (13.0-17.5); Lymphocytes # (A) 0.5 k/uL (1.0-4.8); Lymphocytes % (A) 3 %; MCV 94.1 fL (80.0-100.0); Mean Platelet Volume 7.6; Monocytes % (A) 7 %; Neutrophils # (A) 12.7 k/uL (1.3-7.7); Neutrophils % (A) 87 %; Platelet Count 314 k/uL (150-450); RBC 4.59 m/uL (4.30-5.90); RDW 14.3 % (11.5-15.5); WBC 14.6 k/uL (3.8-10.6)
[2019-10-07 02:36] LABS: Prothrombin Time 10.6 sec (9.0-12.0)
[2019-10-07 02:41] LABS: Glucose,Whole Blood 126 mg/dL (75-99)
[2019-10-07 02:44] LABS: ALT 45 U/L (4-49); AST 49 U/L (17-59); African American GFR (CKD) >90 (>60 ml/min/1.73 sqM); Anion Gap 10 mmol/L; Blood Urea Nitrogen 20 mg/dL (9-20); Calcium 9.5 mg/dL (8.4-10.2); Carbon Dioxide 28 mmol/L (22-30); Chloride 86 mmol/L (98-107); Glucose 117 mg/dL (74-99); Non-African American GFR(CKD) >90 (>60 ml/min/1.73 sqM); Potassium 4.9 mmol/L (3.5-5.1); Sodium 124 mmol/L (137-145)
--- NOTE | 2019-10-07 03:02 | XR ---
EXAMINATION TYPE: XR chest 1V portable DATE OF EXAM: 10/07/2019 COMPARISON: Today HISTORY: Check tube placement TECHNIQUE: FINDINGS: There is nasogastric tube with the tip overlying the gastric fundus. There is consolidation in the entire right upper lobe. There is moderate right pleural effusion. Ther e is no gross heart failure. IMPRESSION: NG tube in good position in the stomach. Chest otherwise unchanged.
[2019-10-07] MEDS ORDERED: HALOPERIDOL LACTATE 5 MG/ML 1 ML VIAL ONE ×2 (06:50→06:59)
[2019-10-07] MEDS: IPRATROPIUM-ALBUTEROL 3 ML NEB INHALATION SCH ×4 (07:49→20:10)
[2019-10-07] MEDS: PANTOPRAZOLE 40 MG TABLET PO SCH ×2 (07:59→17:00)
[2019-10-07] MEDS: MORPHINE SULFATE 4 MG/ML SYRINGE IVP PRN ×4 (08:14→21:07)
--- NOTE | 2019-10-07 08:41 | P.CONS ---
History of Present Illness - Reason for Consult Consult date: 10/06/19 EGD and colonoscopy Requesting physician: Giovana Haddad - Chief Complaint Abdominal and generalized pain - History of Present Illness 64-year-old male with a medical history significant for head and neck malignancy status post chemoradiation, chronic hepatitis C, hypertension, seizure disorder and BPH with active tobacco use who presented to the hospital with complaints of abdominal and generalized pain. Patient has had extensive evaluation since presentation with multiple findings including liver lesions, masslike density in the right pulmonary hilum extending to the mediastinum consistent with tumor, increased asymmetric soft tissue density in the hypopharynx on the left side with wall thickening which could also relate to malignancy. He underwent biopsy of the liver with pathology showing adenocarcinoma of unknown primary with differential including gastrointestinal versus pancreatic primary. On questioning the patient had been suffering from constipation prior to presentation. He was given an enema on presentation with stool reported with the bowel movement. He does report he is passing flatus. No nausea or vomiting reported. Patient reports last colonoscopy 3-4 years ago and that he has had regular colonoscopies in the past. Review of Systems REVIEW OF SYSTEMS: CONSTITUTIONAL: Denies any fevers, chills, weight change or fatigue. CARDIOVASCULAR: Denies any chest pain, palpitations high or low blood pressures RESPIRATORY: Denies any shortness of breath, hemoptysis or cough. GENITOURINARY: No dysuria or hematuria. MUSCULOSKELETAL: No weakness reported. SKIN: Denies any new rashes or lesions, jaundice or pallor. PSYCHIATRIC: Denies any depression or anxiety. NEUROLOGY: Denies headache, denies any new focal deficits. EARS/NOSE/THROAT: No recent hearing change, congestion, nasal discharge or sore throat. EYES: No pain in eyes, discharge or change in vision. GASTROINTESTINAL: As per HPI. 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 COLONOSCOPY Past Anesthesia/Blood Transfusion Reactions: Previous Problems w/ Anesthesia Additional Past Anesthesia/Blood Transfusion Reaction / Comm: SLOW TO WAKE UP FROM ANESTHESIA Past Psychological History: No Psychological Hx Reported Past Alcohol Use History: None Reported Additional Past Alcohol Use History / Comment(s): SMOKES 2 PPD SINCE AGE 12 Past Drug Use History: None Reported - Past Family History Mother Family Medical History: No Reported History Medications and Allergies Home Medications Medication Instructions Recorded Confirmed Type Meloxicam 15 mg PO DAILY 05/27/17 09/28/19 History Phenytoin Sodium Extended 200 mg PO DAILY 05/27/17 09/28/19 History [Dilantin] Primidone [Mysoline] 50 mg PO BID 05/27/17 09/28/19 History Tamsulosin [Flomax] 0.4 mg PO DAILY 05/27/17 09/28/19 History oxyCODONE HCL [oxyCODONE HCL (IR)] 30 mg PO 5XD PRN 05/27/17 09/28/19 History Albuterol Inhaler [Ventolin Hfa 2 puff INHALATION RT-Q4H PRN 09/28/19 09/28/19 History Inhaler] Oxybutynin Chloride [Ditropan] 5 mg PO BID 09/28/19 09/28/19 History Phenytoin Sodium Extended 300 mg PO HS 09/28/19 09/28/19 History [Dilantin] Varenicline [Chantix Continuing 1 mg PO BID 09/28/19 09/28/19 History Pack] Allergies Allergy/AdvReac Type Severity Reaction Status Date / Time No Known Allergies Allergy Verified 09/28/19 17:42 Physical Exam Vitals: Vital Signs Temp Pulse Pulse Resp BP Pulse Ox 10/06/19 11:31 98 F 110 H 18 112/74 93 L 10/06/19 09:29 120 H 20 10/06/19 09:20 124 H 20 94 L 10/06/19 05:20 97.5 F L 124 H 20 159/85 91 L 10/05/19 20:42 61 10/05/19 20:32 61 93 L 10/05/19 20:02 97.7 F 101 H 19 123/76 93 L 10/05/19 17:20 76 10/05/19 17:10 72 10/05/19 16:00 105 H 17 10/05/19 14:23 97.6 F 112 H 17 106/73 92 L Intake and Output 10/05/19 10/06/19 10/06/19 22:59 06:59 14:59 Intake Total 1310 Output Total 600 500 Balance 710 -500 Intake: Oral 1310 Output: Urine 600 500 Other: Voiding Method Urinal Urinal Urinal # Voids 4 On physical examination, patient appears comfortable in no apparent distress. HEAD: Normocephalic, atraumatic. EYES: No scleral icterus. No conjunctival injection. MOUTH: No lesions, tongue midline. NECK: Trachea midline, no gross abnormalities. CHEST: Decreased air entry in all lung bhakta. HEART: S1-S2 appreciated. ABDOMEN: Soft, obese and nontender to palpation. Bowel sounds are positive. No organomegaly. No guarding or rigidity. EXTREMITIES: No pedal edema. SKIN: No rashes, no jaundice. NEUROLOGIC: Alert and oriented x3. No focal deficits. Results CBC & Chem 7: 10/07/19 02:13 10/07/19 02:13 Labs: Abnormal Lab Results - Last 24 Hours (Table) 10/06/19 10/06/19 Range/Units 10:22 10:22 WBC 13.3 H (3.8-10.6) k/uL Neutrophils # 11.9 H (1.3-7.7) k/uL Lymphocytes # 0.4 L (1.0-4.8) k/uL Sodium 128 L (137-145) mmol/L Chloride 92 L (98-107) mmol/L Creatinine 0.56 L (0.66-1.25) mg/dL Glucose 158 H (74-99) mg/dL MRI - abdomen: report reviewed (MRI of the abdomen with osseous metastasis, liver metastases, diffuse adenopathy) Assessment and Plan (1) Metastatic disease Narrative/Plan: 64-year-old male with a past medical history of head and neck cancer presented with abdominal pain. The patient has had multiple imaging studies with evidence of diffuse metastatic disease to the bones, liver, and lymph nodes. Biopsy of the liver was significant for adenocarcinoma with GI primary versus pancreatic primary. Last colonoscopy proximally 4 years ago per report by the patient. He has been having some constipation but reports a bowel movement with tap water enema on presentation. He is also reporting flatus with no nausea or vomiting to suggest obstruction. GI was requested for EGD and colonoscopy to evaluate for possible GI primary. Current Visit: Yes Status: Acute Code(s): C79.9 - SECONDARY MALIGNANT NEOPLA SM OF UNSPECIFIED SITE SNOMED Code(s): 654621018 (2) Abdominal pain Current Visit: Yes Status: Acute Code(s): R10.9 - UNSPECIFIED ABDOMINAL PAIN SNOMED Code(s): 66212976 Plan: Supportive care Clear liquid diet Tap water enema ordered Bowel prep ordered Extensive discussion with the patient and his son who is at bedside about the risks, benefits and possible complications of proceeding with endoscopic evaluation and plan at this time is for EGD and colonoscopy tomorrow to rule out a GI primary is a source of his metastatic cancer Oncology following the patient Continue IV fluid hydration Continue pain control Thank you for allowing us to participate in the care of the patient
--- NOTE | 2019-10-07 09:00 | P.GSCN ---
History of Present Illness Consult date: 10/07/19 Reason for Consult: Abdominal pain, metastatic cancer History of present illness: The patient is admitted with abdominal pain. Workup while he's been in the hospital shows a metastatic cancer which could be pancreatic or GI primary. He has a history of head and neck cancer and received chemoradiation. GI was consult in for EGD and colonoscopy. Yesterday started him on a prep. Last night he began to be very tachycardic and abdomen was more distended. He is transferred to the ICU and a NG tube was placed. This morning he is very joseph nolent from recent morphine. Much of the history is reviewed from the chart. Complaining of generalized pain. Last colonoscopy was about 3-5 years ago. I don't see any report of it being done here. He denies any family history of GI malignancy. 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 COLONOSCOPY Past Anesthesia/Blood Transfusion Reactions: Previous Problems w/ Anesthesia Additional Past Anesthesia/Blood Transfusion Reaction / Comm: SLOW TO WAKE UP FROM ANESTHESIA Past Psychological History: No Psychological Hx Reported Past Alcohol Use History: None Reported Additional Past Alcohol Use History / Comment(s): SMOKES 2 PPD SINCE AGE 12 Past Drug Use History: None Reported - Past Family History Mother Family Medical History: No Reported History Medications and Allergies Home Medications Medication Instructions Recorded Confirmed Type Meloxicam 15 mg PO DAILY 05/27/17 09/28/19 History Phenytoin Sodium Extended 200 mg PO DAILY 05/27/17 09/28/19 History [Dilantin] Primidone [Mysoline] 50 mg PO BID 05/27/17 09/28/19 History Tamsulosin [Flomax] 0.4 mg PO DAILY 05/27/17 09/28/19 History oxyCODONE HCL [oxyCODONE HCL (IR)] 30 mg PO 5XD PRN 05/27/17 09/28/19 History Albuterol Inhaler [Ventolin Hfa 2 puff INHALATION RT-Q4H PRN 09/28/19 09/28/19 History Inhaler] Oxybutynin Chloride [Ditropan] 5 mg PO BID 09/28/19 09/28/19 History Phenytoin Sodium Extended 300 mg PO HS 09/28/19 09/28/19 History [Dilantin] Varenicline [Chantix Continuing 1 mg PO BID 09/28/19 09/28/19 History Pack] Allergies Allergy/AdvReac Type Severity Reaction Status Date / Time No Known Allergies Allergy Verified 09/28/19 17:42 Surgical - Exam Osteopathic Statement: *. No significant issues noted on an osteopathic structural exam other than those noted in the History and Physical/Consult. Vital Signs Temp Pulse Resp BP Pulse Ox 98.0 F 90 18 127/85 96 09/28/19 15:01 09/28/19 15:01 09/28/19 15:01 09/28/19 15:01 09/28/19 15:01 - General Somnolent - Neck trachea midline - Respiratory clear to auscultation - Abdomen Abdomen: tender (Mild generalized tenderness), distended Results - Labs 10/07/19 02:13 10/07/19 02:13 Abnormal Lab Results - Last 24 Hours (Table) 10/06/19 10/06/19 10/07/19 Range/Units 10:22 10:22 01:41 WBC 13.3 H (3.8-10.6) k/uL Neutrophils # 11.9 H (1.3-7.7) k/uL Lymphocytes # 0.4 L (1.0-4.8) k/uL Sodium 128 L (137-145) mmol/L Chloride 92 L (98-107) mmol/L Creatinine 0.56 L (0.66-1.25) mg/dL Glucose 158 H (74-99) mg/dL POC Glucose (mg/dL) 126 H (75-99) mg/dL 10/07/19 10/07/19 10/07/19 Range/Units 02:13 02:13 02:39 WBC 14.6 H (3.8-10.6) k/uL Neutrophils # 12.7 H (1.3-7.7) k/uL Lymphocytes # 0.5 L (1.0-4.8) k/uL Sodium 124 L (137-145) mmol/L Chloride 86 L (98-107) mmol/L Creatinine 0.57 L (0.66-1.25) mg/dL Glucose 117 H (74-99) mg/dL POC Glucose (mg/dL) 126 H (75-99) mg/dL Diabetes panel 10/06/19 10/07/19 Range/Units 10:22 02:13 Sodium 128 L 124 L (137-145) mmol/L Potassium 4.8 4.9 (3.5-5.1) mmol/L Chloride 92 L 86 L (98-107) mmol/L Carbon Dioxide 30 28 (22-30) mmol/L BUN 18 20 (9-20) mg/dL Creatinine 0.56 L 0.57 L (0.66-1.25) mg/dL Glucose 158 H 117 H (74-99) mg/dL Calcium 9.6 9.5 (8.4-10.2) mg/dL AST 49 (17-59) U/L ALT 45 (4-49) U/L Calcium panel 10/06/19 10/07/19 Range/Units 10:22 02:13 Calcium 9.6 9.5 (8.4-10.2) mg/dL Pituitary panel 10/06/19 10/07/19 Range/Units 10:22 02:13 Sodium 128 L 124 L (137-145) mmol/L Potassium 4.8 4.9 (3.5-5.1) mmol/L Chloride 92 L 86 L (98-107) mmol/L Carbon Dioxide 30 28 (22-30) mmol/L BUN 18 20 (9-20) mg/dL Creatinine 0.56 L 0.57 L (0.66-1.25) mg/dL Glucose 158 H 117 H (74-99) mg/dL Calcium 9.6 9.5 (8.4-10.2) mg/dL Adrenal panel 10/06/19 10/07/19 Range/Units 10:22 02:13 Sodium 128 L 124 L (137-145) mmol/L Potassium 4.8 4.9 (3.5-5.1) mmol/L Chloride 92 L 86 L (98-107) mmol/L Carbon Dioxide 30 28 (22-30) mmol/L BUN 18 20 (9-20) mg/dL Creatinine 0.56 L 0.57 L (0.66-1.25) mg/dL Glucose 158 H 117 H (74-99) mg/dL Calcium 9.6 9.5 (8.4-10.2) mg/dL AST 49 (17-59) U/L ALT 45 (4-49) U/L - Imaging Abdominal x-ray: report reviewed, image reviewed Assessment and Plan (1) Colon distention Current Visit: Yes Status: Acute Code(s): K63.89 - OTHER SPECIFIED DISEASES OF INTESTINE SNOMED Code(s): 703749661 (2) Abdominal pain Current Visit: Yes Status: Acute Code(s): R10.9 - UNSPECIFIED ABDOMINAL PAIN SNOMED Code(s): 55391239 (3) Metastatic disease Current Visit: Yes Status: Acute Code(s): C79.9 - SECONDARY MALIGNANT NEOPLASM OF UNSPECIFIED SITE SNOMED Code(s): 107781426 Plan: Abdominal x-ray this morning is concerning for a distal large bowel obstruction. I will discuss with medicine. He'll need to be medically stabilized. Further recommendations to follow.
--- NOTE | 2019-10-07 09:33 | P.PN ---
Progress Note - Text Progress Note Date: 10/07/[address] Montoya and Dr Almonte after they rounded today. It appears the patient has a high grade distal colonic obstruction which is at high risk for perforation in the next 24-18 hours due to the amount of distention. Dr Montoya is reommending hospice for the patient due to overall poor condition and metastatic disease. My recommendation is to make sure he has adequate pain control. If anything changes, please contact me.
[2019-10-07] MEDS: OXYBUTYNIN CHLORIDE 5 MG TAB PO SCH ×2 (10:45→20:25)
[2019-10-07] MEDS: VARENICLINE 1 MG TAB PO SCH ×2 (10:45→20:24)
[2019-10-07] MEDS: PHENYTOIN SODIUM EXTENDED 100 MG CAP PO SCH ×2 (10:45→20:25)
[2019-10-07] MEDS: polyethylene glycoL 3350 17 GM POWD.PACK PO SCH (10:46)
[2019-10-07] MEDS: LACTATED RINGERS 1,000 ML IV SCH (10:46)
[2019-10-07] MEDS: TAMSULOSIN 0.4 MG CAP.ER.24H PO SCH (10:46)
[2019-10-07] MEDS: PRIMIDONE 50 MG TAB PO SCH ×2 (10:46→20:25)
--- NOTE | 2019-10-07 13:10 | P.PN ---
Subjective Progress Note Date: 10/07/19 This patient got transferred yesterday to the intensive care units. The patient was seen earlier in the oncology unit because of metastatic adenocarcinoma with liver involvement sources being either GI or the lung. I fever lung as the patient has what looks to be a hilar mass was significant collapse of the right upper lobe and the right lower lobe with a development of pleural effusion. The patient operative metastatic disease knowing that the MRI of the abdomen also showed in addition to the 4 cm hepatic mass, 5 satellite nodules up to 1 cm in size, retroperitoneal metastatic lymphadenopathy measuring up to 1.2 cm, abnormal thickening of the right greater than left area gland suspicious for metastatic disease in addition to the right-sided pleural effusion and new left- sided smaller pleural effusion and a soft tissue density in the right hilum as was seen on the CAT scan of the chest that was done on 09/29/2019 and based on my evaluation this is considered to be the primary source of the malignancy. Additional findings were highly suspicious for diffuse osseous metastases. Other the patient also describes cell carcinoma of the tongue and the patient was being evaluated for a head and neck tumor also. The patient was hypoxic on 3 L approximately nasal cannula. As part of his workup for the malignancy, GI was consulted and the patient was given the option of EGD and colonoscopy. The Pap was given yesterday. Last night, the patient became progressively more tachycardic and abdomen became quite extensive distended. He was transferred to the intensive care unit. NG tube was placed. The patient had abdominal film that showed significant distention of the colon. The x-ray of the abdomen from this morning showing distal large bowel obstruction with high risk of perfor ation based on the surgical opinion. The patient was given morphine for pain control. Sodium level is 124. The white cell count 14.6. The patient is quite lethargic. The patient shortness of breath. The patient is uncomfortable with abdominal pain. As stated earlier, in my opinion, the patient's overall performance and functional status is extremely poor and the patient has metastatic disease which in my opinion is of a primary lung. I elected discussion with him. He wanted to go home and stop all treatment. I recommended hospice for this patient which she accepted. Based on this, hospice services were consulted. I also talked over with GI and general surgery. I do not see a role for any surgical intervention at this point in time/to his underlying metastatic the chest x-ray shows collapse/mass of the right upper lobe in addition to her right-sided pleural effusion. No failure. NG tube is in a good location. Objective - Vital Signs Vital signs: Vital Signs Temp 97.6 F 10/07/19 12:00 Pulse 134 H 10/07/19 12:00 Resp 14 10/07/19 12:00 BP 97/64 10/07/19 12:00 Pulse Ox 95 10/07/19 12:00 Intake & Output 10/06/19 10/07/19 10/07/19 18:59 06:59 18:59 Intake Total 2380 120 Output Total 963 493 0769 Balance -400 1979 Intake: IV 20 120 0.9 Normal Saline @ 20 mL 20 120 /hr Oral 2360 Output: Urine 784 [id number] [id number] Other: Voiding Method Urinal Urinal # Voids 4 - Exam Gen. appearance the patient is a moderate degree of distress because of shortness of breath in addition to abdominal distention and pain. Head exam was generally normal. There was no scleral icterus or corneal arcus. Mucous membranes were moist. Neck was supple and without jugular venous distension, thyromegaly, or carotid bruits. Carotids were easily palpable bilaterally. There was no adenopathy. NG tube in place for now. Exam patient lung shows marked diminished breath sounds in the right compared to the left. No significant wheezes or rhonchi. Cardiac exam revealed the PMI to be normally situated and sized. The rhythm was regular and no extrasystoles were noted during several minutes of auscultation. The first and second heart sounds were normal and physiologic splitting of the second heart sound was noted. There were no murmurs, rubs, clicks, or gallops. Abdomen is distended. Bowel sounds are hypoactive. Mild diabetic tenderness. No rebound tenderness. No guarding. There is mild generalized tenderness throughout his abdominal wall. Organs are not palpated. Examination of the extremities revealed easily palpable radial, femoral and pedal pulses. There was no cyanosis, clubbing or edema. Examination of the skin revealed no evidence of significant rashes, suspicious appearing nevi or other concerning lesions. Neurologically, the patient is awake and alert and the patient does not have any focal neurological deficit. Cranial nerves are essentially intact. - Labs CBC & Chem 7: 10/07/19 02:13 10/07/19 02:13 Labs: Abnormal Lab Results - Last 24 Hours (Table) 10/07/19 10/07/19 10/07/19 Range/Units 01:41 02:13 02:13 WBC 14.6 H (3.8-10.6) k/uL Neutrophils # 12.7 H (1.3-7.7) k/uL Lymphocytes # 0.5 L (1.0-4.8) k/uL Sodium 124 L (137-145) mmol/L Chloride 86 L (98-107) mmol/L Creatinine 0.57 L (0.66-1.25) mg/dL Glucose 117 H (74-99) mg/dL POC Glucose (mg/dL) 126 H (75-99) mg/dL 10/07/19 Range/Units 02:39 WBC (3.8-10.6) k/uL Neutrophils # (1.3-7.7) k/uL Lymphocytes # (1.0-4.8) k/uL Sodium (137-145) mmol/L Chloride (98-107) mmol/L Creatinine (0.66-1.25) mg/dL Glucose (74-99) mg/dL POC Glucose (mg/dL) 126 H (75-99) mg/dL Assessment and Plan Plan: 1 right hilar mass causing significant atelectasis of the right lung with a parapneumonic effusion. I think the right lung is collapse based on the hilar mass which is causing significant airway compromise and collapse. This could've sign to the right upper lobe and the right lower lobe airways. 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 Based on the biopsy of the liver, the favoring more gastrointestinal source. In my opinion this is most likely of a primary lung malignancy. 2 right-sided pleural effusion with presence of a trapped lung with tumor obstructing the right upper lobe bronchus and distal bronchus intermedius. Consider malignant pleural effusion. Consider reactive pleural effusion following lung collapse. 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 Seizure Disorder 10 BPH 11 chronic constipation 12 smoker 13 acute abdominal distention, colonic distention with possibility of bowel obstruction and thickening abdominal pain. Plan The patient has a hilar mass with mediastinal lymphadenopathy and early signs of SVC syndrome. The patient also has collapse of the right lung, right-sided pleural effusion, metastatic disease involving the skeletal system, adrenal glands, and liver in addition to questionable upper airway, hypopharyngeal mass. Currently has abdominal obstruction/chronic obstruction and NG tube is in place. Very much debilitated and very poor performance functional status. Requesting to go home. I do not see a role for surgical intervention at this point in time. Recommend hospice care. She was agreeable. Hospice services were consulted. Discussed the case with general surgery. Discussed the case with GI.
--- NOTE | 2019-10-07 19:33 | P.PN ---
Subjective Progress Note Date: 10/07/19 Principal diagnosis: Metastatic disease, abdominal pain and Patient is seen lying in bed in the ICU today, transferred from the floor after developing tachycardia. Patient has diffuse metastatic disease of unknown primary and plan was for EGD and colonoscopy however patient failed to have any bowel movements with the colon prep yesterday. He has had an NG tube placed which is currently on low intermittent suction. Discussion with the patient, and the consulting services at this time decision has been made for hospice care. Objective - Vital Signs Vital signs: Vital Signs Temp 97.6 F 10/07/19 04:00 Pulse 140 H 10/07/19 07:00 Resp 16 10/07/19 07:00 BP 105/85 10/07/19 07:00 Pulse Ox 94 L 10/07/19 07:00 Intake & Output 10/06/19 10/07/19 10/07/19 18:59 06:59 18:59 Intake Total 2380 40 Output Total 425 796 9474 Balance -400 1979 -96 Intake: IV 20 40 0.9 Normal Saline 20 40 Oral 2360 Output: Urine 355 523 5031 Other: Voiding Method Urinal Urinal # Voids 4 - Exam On physical examination, patient appears comfortable in no apparent distress. HEAD: Normocephalic, atraumatic, nasogastric tube in place. EYES: No scleral icterus. No conjunctival injection. MOUTH: No lesions, tongue midline. NECK: Trachea midline, no gross abnormalities. ABDOMEN: Soft, obese, mildly distended. Bowel sounds are positive. No organomegaly. No guarding or rigidity. EXTREMITIES: No pedal edema. SKIN: No rashes, no jaundice. NEUROLOGIC: Alert and oriented x3. - Labs CBC & Chem 7: 10/07/19 02:13 10/07/19 02:13 Labs: Abnormal Lab Results - Last 24 Hours (Table) 10/06/19 10/06/19 10/07/19 Range/Units 10:22 10:22 01:41 WBC 13.3 H (3.8-10.6) k/uL Neutrophils # 11.9 H (1.3-7.7) k/uL Lymphocytes # 0.4 L (1.0-4.8) k/uL Sodium 128 L (137-145) mmol/L Chloride 92 L (98-107) mmol/L Creatinine 0.56 L (0.66-1.25) mg/dL Glucose 158 H (74-99) mg/dL POC Glucose (mg/dL) 126 H (75-99) mg/dL 10/07/19 10/07/19 10/07/19 Range/Units 02:13 02:13 02:39 WBC 14.6 H (3.8-10.6) k/uL Neutrophils # 12.7 H (1.3-7.7) k/uL Lymphocytes # 0.5 L (1.0-4.8) k/uL Sodium 124 L (137-145) mmol/L Chloride 86 L (98-107) mmol/L Creatinine 0.57 L (0.66-1.25) mg/dL Glucose 117 H (74-99) mg/dL POC Glucose (mg/dL) 126 H (75-99) mg/dL Assessment and Plan (1) Metastatic disease Narrative/Plan: 64-year-old male with a past medical history of head and neck cancer presented with abdominal pain. The patient has had multiple imaging studies with evidence of diffuse metastatic disease to the bones, liver, and lymph nodes. Biopsy of the liver was significant for adenocarcinoma with GI primary versus pancreatic primary. Last colonoscopy proximally 4 years ago per report by the patient. He has been having some constipation but reports a bowel movement with tap water enema on presentation. He is also reporting flatus with no nausea or vomiting to suggest obstruction. Patient received bowel prep yesterday. He did have a bowel movement after tap water enema, however no bowel movements after GoLYTELY. Patient became tachycardic and was brought to the ICU for further care. Extensive discussion with the beam sealer service, surgical service as well as the patient and given his diffuse metastatic disease, findings of distended bowel on colonoscopy and overall poor prognosis the plan is for hospice care at this time. Current Visit: Yes Status: Acute Code(s): C79.9 - SECONDARY MALIGNANT NEOPLASM OF UNSPECIFIED SITE SNOMED Code(s): 664702044 (2) Abdominal pain Current Visit: Yes Status: Acute Code(s): R10.9 - UNSPECIFIED ABDOMINAL PAIN SNOMED Code(s): 43392403 Plan: Supportive care Nothing by mouth except for ice chips Continue NG tube on low intermittent suction Pain control Appreciate recommendations and support from the beam sealer service and surgical service Overall very poor prognosis given diffuse metastatic disease, patient is not a candidate for endoscopic evaluation and agree with hospice care If patient changes his mind regarding intervention would recommend transfer to tertiary center for evaluation for possible stent placement, however patient remains extremely high risk with likely poor outcome with any aggressive intervention given his metastatic disease Thank you for allowing us to participate in the care of the patient
--- NOTE | 2019-10-08 00:53 | P.PN ---
Subjective Progress Note Date: 10/06/19 Principal diagnosis: Abdominal pain secondary to metastatic cancer. Patient is a 64-year-old male with a known history of throat cancer status post chemo and radiation, chronic hepatitis C, hypertension, seizure disorder and BPH and also currently everyday smoker presented to ER with complaints of abdominal pain mainly right lower quadrant and generalized pain. Patient does have history of throat cancer and is currently able to eat but cannot taste. Denied any complaints of chest pain or shortness of breath. Patient states that he has been constipated for the past 4 to 5 days. Does pass flatus. Denies any fever or chills. No cough or sputum production. No headache or dizziness or lightheadedness. Chest x-ray showed findings may represent postobstructive atelectasis in the right upper lobe CT of the abdomen pelvis showed findings consistent with metastatic disease. Right pleural effusion. Right upper lobe atelectasis as described on the chest x-ray report. Right-sided nephrolithiasis. Additional findings as above. EKG showed normal sinus rhythm. CT of the chest showed right-sided hydrothorax with masslike density in the right pulmonary hilum extending into the mediastinum consistent with tumor. Consolidation atelectasis of the entire right lung small left pleural effusion. Nonspecific density adjacent to the pleura in the posterior superior segment of the left lower lobe. Large liver lesion consistent with tumor. CT soft tissue neck showed asymmetric increased soft tissue density in the hypopharynx on the left side with wall thickening that could relate to tumor. Laboratory data showed WBC 10.8, hemoglobin 13.6, platelets 292 and sodium 131, potassium 3.1 and chloride 94 BUN 16 and creatinine 0.64 lactic acid 1.3 Troponin x1- proBNP 152 COVID-19 PCR negative. 09/30/2019 Patient is currently lying in the bed comfortably. Abdominal pain is improved with morphine. Patient is able to tolerate soft diet. Otherwise patient doesn't have any bowel movement for the last few days. Patient had enema done yesterday and also attending stool softeners and laxatives. Otherwise patient has been afebrile. Oncology is on board. 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 10/01/2019 Patient is seen and evaluated and follow-up with no acute overnight issues. Patient continues to request morphine often per nursing staff. Oncology following the patient recommending biopsy of the liver and Doppler. Doppler done of the right upper extremity which was negative for DVT at this time. When discussing with patient about treatment plan patient states he is unsure at this time but is agreeable to further testing and will await biopsy with interventional radiology to discuss further treatment options. Patient states he has some shortness of breath and is currently maintained on 3 L of oxygen via nasal cannula although no reports of chest pain or palpitations. Patient is afebrile. No reports of nausea or vomiting but does have some abdominal discomfort as patient states he has not had a bowel movement in 3 weeks. Patient had been taking large amounts of narcotics in the outpatient setting. 10/02/2019 Patient is seen in follow-up today and continues to have generalized pain and weakness and is being closely monitored. Per nursing staff patient made comments of being too weak to get up out of the bed and PT/OT therapy consulted and pending at this time. Patient had a brain MRI for diagnostic purposes yesterday showing no MRI evidence for suspicious enhancing intraparenchymal mass to suggest metastatic disease to the brain and back from mild to moderate diffuse cerebral atrophy and small chronic vessel ischemic changes noted. Patient also had liver biopsy with pathology pending. Oncology is following. Case management is to discuss with patient about possible discharge planning needs as patient states he wants to return home with his son-in-law once discharged. Awaiting PT/OT eval for possible home care once discharged. Currently no reports of chest pain, worsening shortness of breath, or palpitations. Patient is afebrile. No reports of nausea or vomiting and patient is tolerating diet. Patient continues to deny bowel movements at this time. Patient did receive an enema. 10/04/2019 Patient is seen and evaluated today with no acute overnight issues. Patient underwent some radiation therapy with radiation oncology today. Patient awaiting to undergo possible biopsy with ENT tomorrow. Patient continues to have dyspnea and is quite fatigued and lethargic. Discussed with the patient about increasing activity as tolerated sitting up in the chair more often. Patient is currently maintained on bronchodilators and will continue at this time. Patient's prognosis continues to be quite guarded and poor although patient is proceeding with treatment for palliation. Oncology following closely. Currently patient has no reports of chest pain, worsening shortness of breath, or palpitations. Patient is afebrile. No reports of nausea or vomiting and patient is tolerating diet. Patient was nothing by mouth for this morning's procedure requesting something to eat. Will resume diet. 10/05/2019 Patient is seen and evaluated in follow-up today and continues to be extremely lethargic and weak and not eating very well. Attempts for possible biopsy or laryngoscope with ENT was not performed as the procedure is too risky. Recommending possible PET scan in the outpatient setting. Oncology following closely and placed a consult for GI for possible EGD and colonoscopy to further diagnose and determine treatment plan. Patient continues to work with physical therapy and they are recommending subacute rehab although patient still would like to [facility] once discharged. Case management and social work to continue following for possible discharge planning needs. The patient has no reports of chest pain or palpitations. Patient continues to have shortness of breath although has not worsened. Patient is afebrile. No reports of nausea or vomiting and patient is tolerating diet although continues to have a poor oral intake. 10/06/2019 Patient is currently lying in the bed. Still complaining of abdominal pain. Did not have any bowel movement. No fever no chills. Patient had MRI of the pancreas showed right hepatic lobe neoplasm suspected metastatic disease. Abnormal thickening of the right greater than left adrenal gland suspicious for metastatic disease as well. Continued to have large right pleural effusion and new left pleural effusion. Patient findings suspicious for diffuse metastatic disease. Laboratory data showed WBC 13.3, hemoglobin 13.6 and platelets 294 Sodium 128, potassium 4.8 and chloride 92 Current medications reviewed. Objective - Vital Signs Vital signs: Vital Signs Temp 97.6 F 10/06/19 20:48 Pulse 148 H 10/06/19 20:48 Resp 20 10/06/19 20:48 BP 123/67 10/06/19 20:48 Pulse Ox 93 L 10/06/19 20:48 Intake & Output 10/06/19 10/06/19 10/07/19 06:59 18:59 06:59 Intake Total 590 Output Total 500 400 Balance 90 -400 Intake: Oral 590 Output: Urine 500 400 Other: Voiding Method Urinal Urinal - Exam PHYSICAL EXAMINATION: Patient is lying in the bed operatively. No acute distress., awake alert and oriented.. HEENT: Normocephalic. Neck is supple. Pupils reactive. Nostrils clear. Oral cavi ty is moist. Ears reveal no drainage. Neck reveals no JVD, carotid bruits, or thyromegaly. CHEST EXAMINATION: Trachea is central. Symmetrical expansion. Diminished air entry on the right side. Left basilar crackles.n. CARDIAC: Normal S1, S2 with no gallops. No murmurs ABDOMEN: Soft.Right lower quadrant tenderness and generalized tenderness. Bowel sounds present. Distended. No abdominal bruits. Extremities: reveal no edema. No clubbing or cyanosis Neurologically awake, alert, oriented x2-3 with well-coordinated movements. No focal deficits noted Skin: No rash or skin lesions. Psychiatric: Coperative. Could not be sensory completely Musculoskeletal: No joint swelling or deformity. Normal range of motion. - Labs CBC & Chem 7: 10/07/19 02:13 10/07/19 02:13 Labs: Abnormal Lab Results - Last 24 Hours (Table) 10/06/19 10/06/19 Range/Units 10:22 10:22 WBC 13.3 H (3.8-10.6) k/uL Neutrophils # 11.9 H (1.3-7.7) k/uL Lymphocytes # 0.4 L (1.0-4.8) k/uL Sodium 128 L (137-145) mmol/L Chloride 92 L (98-107) mmol/L Creatinine 0.56 L (0.66-1.25) mg/dL Glucose 158 H (74-99) mg/dL Assessment and Plan Assessment: Right lower quadrant abdominal pain and generalized pain secondary to metastatic cancer Metastatic cancer with tumor in the lung and mediastinum as well as liver. Consolidation and atelectasis of the entire right lung and small left pleural effusion Postobstructive atelectasis Throat cancer status post chemo and radiation. Hepatitis C infection Hypertension History of seizure disorder BPH Hypovolemic hyponatremia Chronic constipation DVT prophylaxis Plan: Patient will be continued on pain management, current medications, management, and symptomatic treatment. Multiple medical consultations along with radiation oncology following. GI consulted for possible plans of EGD and colonoscopy to further diagnose and aid in treatment plan. Oncology following. Prognosis poor at this time. Liver biopsy shows Metastatic adenocarcinoma most consistent with primary upper gastrointestinal or pancreatobiliary tract origin. Further recommendations to follow based on clinical course. Time with Patient: Greater than 30
--- NOTE | 2019-10-08 00:59 | P.PN ---
Subjective Progress Note Date: 10/07/19 Principal diagnosis: Abdominal pain secondary to metastatic cancer. Patient is a 64-year-old male with a known history of throat cancer status post chemo and radiation, chronic hepatitis C, hypertension, seizure disorder and BPH and also currently everyday smoker presented to ER with complaints of abdominal pain mainly right lower quadrant and generalized pain. Patient does have history of throat cancer and is currently able to eat but cannot taste. Denied any complaints of chest pain or shortness of breath. Patient states that he has been constipated for the past 4 to 5 days. Does pass flatus. Denies any fever or chills. No cough or sputum production. No headache or dizziness or lightheadedness. Chest x-ray showed findings may represent postobstructive atelectasis in the right upper lobe CT of the abdomen pelvis showed findings consistent with metastatic disease. Right pleural effusion. Right upper lobe atelectasis as described on the chest x-ray report. Right-sided nephrolithiasis. Additional findings as above. EKG showed normal sinus rhythm. CT of the chest showed right-sided hydrothorax with masslike density in the right pulmonary hilum extending into the mediastinum consistent with tumor. Consolidation atelectasis of the entire right lung small left pleural effusion. Nonspecific density adjacent to the pleura in the posterior superior segment of the left lower lobe. Large liver lesion consistent with tumor. CT soft tissue neck showed asymmetric increased soft tissue density in the hypopharynx on the left side with wall thickening that could relate to tumor. Laboratory data showed WBC 10.8, hemoglobin 13.6, platelets 292 and sodium 131, potassium 3.1 and chloride 94 BUN 16 and creatinine 0.64 lactic acid 1.3 Troponin x1- proBNP 152 COVID-19 PCR negative. 09/30/2019 Patient is currently lying in the bed comfortably. Abdominal pain is improved with morphine. Patient is able to tolerate soft diet. Otherwise patient doesn't have any bowel movement for the last few days. Patient had enema done yesterday and also attending stool softeners and laxatives. Otherwise patient has been afebrile. Oncology is on board. 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 10/01/2019 Patient is seen and evaluated and follow-up with no acute overnight issues. Patient continues to request morphine often per nursing staff. Oncology following the patient recommending biopsy of the liver and Doppler. Doppler done of the right upper extremity which was negative for DVT at this time. When discussing with patient about treatment plan patient states he is unsure at this time but is agreeable to further testing and will await biopsy with interventional radiology to discuss further treatment options. Patient states he has some shortness of breath and is currently maintained on 3 L of oxygen via nasal cannula although no reports of chest pain or palpitations. Patient is afebrile. No reports of nausea or vomiting but does have some abdominal discomfort as patient states he has not had a bowel movement in 3 weeks. Patient had been taking large amounts of narcotics in the outpatient setting. 10/02/2019 Patient is seen in follow-up today and continues to have generalized pain and weakness and is being closely monitored. Per nursing staff patient made comments of being too weak to get up out of the bed and PT/OT therapy consulted and pending at this time. Patient had a brain MRI for diagnostic purposes yesterday showing no MRI evidence for suspicious enhancing intraparenchymal mass to suggest metastatic disease to the brain and back from mild to moderate diffuse cerebral atrophy and small chronic vessel ischemic changes noted. Patient also had liver biopsy with pathology pending. Oncology is following. Case management is to discuss with patient about possible discharge planning needs as patient states he wants to return home with his son-in-law once discharged. Awaiting PT/OT eval for possible home care once discharged. Currently no reports of chest pain, worsening shortness of breath, or palpitations. Patient is afebrile. No reports of nausea or vomiting and patient is tolerating diet. Patient continues to deny bowel movements at this time. Patient did receive an enema. 10/04/2019 Patient is seen and evaluated today with no acute overnight issues. Patient underwent some radiation therapy with radiation oncology today. Patient awaiting to undergo possible biopsy with ENT tomorrow. Patient continues to have dyspnea and is quite fatigued and lethargic. Discussed with the patient about increasing activity as tolerated sitting up in the chair more often. Patient is currently maintained on bronchodilators and will continue at this time. Patient's prognosis continues to be quite guarded and poor although patient is proceeding with treatment for palliation. Oncology following closely. Currently patient has no reports of chest pain, worsening shortness of breath, or palpitations. Patient is afebrile. No reports of nausea or vomiting and patient is tolerating diet. Patient was nothing by mouth for this morning's procedure requesting something to eat. Will resume diet. 10/05/2019 Patient is seen and evaluated in follow-up today and continues to be extremely lethargic and weak and not eating very well. Attempts for possible biopsy or laryngoscope with ENT was not performed as the procedure is too risky. Recommending possible PET scan in the outpatient setting. Oncology following closely and placed a consult for GI for possible EGD and colonoscopy to further diagnose and determine treatment plan. Patient continues to work with physical therapy and they are recommending subacute rehab although patient still would like to go home with [facility] once discharged. Case management and social work to continue following for possible discharge planning needs. The patient has no reports of chest pain or palpitations. Patient continues to have shortness of breath although has not worsened. Patient is afebrile. No reports of nausea or vomiting and patient is tolerating diet although continues to have a poor oral intake. 10/06/2019 Patient is currently lying in the bed. Still complaining of abdominal pain. Did not have any bowel movement. No fever no chills. Patient had MRI of the pancreas showed right hepatic lobe neoplasm suspected metastatic disease. Abnormal thickening of the right greater than left adrenal gland suspicious for metastatic disease as well. Continued to have large right pleural effusion and new left pleural effusion. Patient findings suspicious for diffuse metastatic disease. Laboratory data showed WBC 13.3, hemoglobin 13.6 and platelets 294 Sodium 128, potassium 4.8 and chloride 92 10/07/2019 Patient is currently sitting in the chair. NG tube is in place. Overnight patient became tachycardic and worsening abdominal distention. Patient was transferred to MICU General surgery was consulted due to bowel obstruction. Abdominal x-ray showed dilated large bowel could relate to severe ileus or distal mechanical large bowel obstruction. This is a change compared to old exam. Chest x-ray showed there is increased pleural fluid and the right upper lobe consolidation compared to recent exam. No heart failure seen. Due to metastatic cancer and patient being a not surgical candidate, patient is agreeable for hospice care and wants to be discharged home. Current medications reviewed. Objective - Vital Signs Vital signs: Vital Signs Temp 98 F 10/07/19 20:00 Pulse 142 H 10/07/19 22:00 Resp 15 10/07/19 22:00 BP 110/75 10/07/19 22:00 Pulse Ox 93 L 10/07/19 22:00 Intake & Output 10/07/19 10/07/19 10/08/19 06:59 18:59 06:59 Intake Total 2380 260 40 Output Total 400 2150 0 Balance 1979 -1889 40 Intake: IV 20 260 40 0.9 Normal Saline @ 20 mL 20 260 40 /hr Oral 2360 Output: Gastric Drainage 200 Urine 400 1950 0 Other: Voiding Method Urinal Urinal Urinal # Voids 4 - Exam PHYSICAL EXAMINATION: Patient is lying in the bed operatively. No acute distress., awake alert and oriented.. HEENT: Normocephalic. Neck is supple. Pupils reactive. Nostrils clear. Oral cavity is moist. Ears reveal no drainage. Neck reveals no JVD, carotid bruits, or thyromegaly. CHEST EXAMINATION: Trachea is central. Symmetrical expansion. Diminished air entry on the right side. Left basilar crackles.n. CARDIAC: Normal S1, S2 with no gallops. No murmurs ABDOMEN: Soft.Right lower quadrant tenderness and generalized tenderness. Bowel sounds present. Distended. No abdominal bruits. Extremities: reveal no edema. No clubbing or cyanosis Neurologically awake, alert, oriented x2-3 with well-coordinated movements. No focal deficits noted Skin: No rash or skin lesions. Psychiatric: Coperative. Could not be sensory completely Musculoskeletal: No joint swelling or deformity. Normal range of motion. - Labs CBC & Chem 7: 10/07/19 02:13 10/07/19 02:13 Labs: Abnormal Lab Results - Last 24 Hours (Table) 10/07/19 10/07/19 10/07/19 Range/Units 01:41 02:13 02:13 WBC 14.6 H (3.8-10.6) k/uL Neutrophils # 12.7 H (1.3-7.7) k/uL Lymphocytes # 0.5 L (1.0-4.8) k/uL Sodium 124 L (137-145) mmol/L Chloride 86 L (98-107) mmol/L Creatinine 0.57 L (0.66-1.25) mg/dL Glucose 117 H (74-99) mg/dL POC Glucose (mg/dL) 126 H (75-99) mg/dL 10/07/19 Range/Units 02:39 WBC (3.8-10.6) k/uL Neutrophils # (1.3-7.7) k/uL Lymphocytes # (1.0-4.8) k/uL Sodium (137-145) mmol/L Chloride (98-107) mmol/L Creatinine (0.66-1.25) mg/dL Glucose (74-99) mg/dL POC Glucose (mg/dL) 126 H (75-99) mg/dL Assessment and Plan Assessment: Abdominal distention due to severe ileus and possible distal mechanical large bowel obstruction. 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 Consolidation and atelectasis of the entire right lung and small left pleural effusion Postobstructive atelectasis Throat cancer status post chemo and radiation. Hepatitis C infection Hypertension History of seizure disorder BPH Hypovolemic hyponatremia Chronic constipation DVT prophylaxis Plan: Patient will be continued on pain management, current medications, management, and symptomatic treatment. Multiple medical consultations along with radiation oncology following. GI consulted for possible plans of EGD and colonoscopy to further diagnose and aid in treatment plan. Oncology following. Prognosis poor at this time. Liver biopsy shows Metastatic adenocarcinoma most consistent with primary upper gastrointestinal or pancreatobiliary tract origin. Further recommendations to follow based on clinical course.Possible transfer to hospice care. Time with Patient: Greater than 30
[2019-10-08] MEDS: MORPHINE SULFATE 4 MG/ML SYRINGE IVP PRN ×4 (01:05→13:07)
[2019-10-08] MEDS: HYDROmorphone 0.5 MG/0.5 ML SYRINGE IVP PRN ×3 (03:15→11:10)
[2019-10-08 04:44] LABS: Basophils # (A) 0.1 k/uL (0-0.2); Basophils % (A) 0 %; Eosinophils # (A) 0.1 k/uL (0-0.7); Eosinophils % (A) 1 %; HCT 42.4 % (39.0-53.0); HGB 13.9 gm/dL (13.0-17.5); Hypochromasia Slight; Lymphocytes # (A) 0.5 k/uL (1.0-4.8); Lymphocytes % (A) 4 %; MCHC 32.7 g/dL (31.0-37.0); MCV 94.9 fL (80.0-100.0); Mean Platelet Volume 7.7; Monocytes # (A) 0.8 k/uL (0-1.0); Monocytes % (A) 6 %; Neutrophils % (A) 89 %; Platelet Count 330 k/uL (150-450); RBC 4.47 m/uL (4.30-5.90); RDW 14.4 % (11.5-15.5); WBC 13.4 k/uL (3.8-10.6)
[2019-10-08 04:50] VITALS: TEMP 97.5
[2019-10-08 04:57] LABS: African American GFR (CKD) >90 (>60 ml/min/1.73 sqM); Anion Gap 16 mmol/L; Blood Urea Nitrogen 18 mg/dL (9-20); Calcium 9.2 mg/dL (8.4-10.2); Carbon Dioxide 22 mmol/L (22-30); Chloride 90 mmol/L (98-107); Glucose 115 mg/dL (74-99); Non-African American GFR(CKD) >90 (>60 ml/min/1.73 sqM); Potassium 4.7 mmol/L (3.5-5.1); Sodium 128 mmol/L (137-145)
[2019-10-08] MEDS: DEXAMETHASONE SOD PHOSPHATE 4 MG/ML 1 ML VIAL IV SCH ×2 (06:32→11:12)
[2019-10-08] MEDS: PANTOPRAZOLE 40 MG TABLET PO SCH (06:34)
[2019-10-08] MEDS: IPRATROPIUM-ALBUTEROL 3 ML NEB INHALATION SCH ×2 (07:15→11:10)
[2019-10-08] MEDS: OXYBUTYNIN CHLORIDE 5 MG TAB PO SCH (08:22)
[2019-10-08] MEDS: PRIMIDONE 50 MG TAB PO SCH (08:22)
[2019-10-08] MEDS: VARENICLINE 1 MG TAB PO SCH (08:22)
[2019-10-08] MEDS: HEPARIN SODIUM,PORCINE 5,000 UNIT/ML 1 ML VIAL SQ SCH (08:22)
[2019-10-08] MEDS: polyethylene glycoL 3350 17 GM POWD.PACK PO SCH (08:22)
[2019-10-08] MEDS: LIDOCAINE 5% PATCH TOPICAL SCH (08:22)
[2019-10-08] MEDS: TAMSULOSIN 0.4 MG CAP.ER.24H PO SCH (08:23)
[2019-10-08] MEDS: PHENYTOIN SODIUM EXTENDED 100 MG CAP PO SCH (08:23)
[2019-10-08] MEDS: LACTATED RINGERS 1,000 ML IV SCH (08:23)
[2019-10-08] MEDS ORDERED: METOPROLOL TARTRATE 5 MG/5 ML VIAL IVP ONE (09:24)
[2019-10-08] MEDS ORDERED: DILTIAZEM ORAL 60 MG TAB PO SCH (09:30)
[2019-10-08] MEDS ORDERED: METOPROLOL TARTRATE 25 MG TAB PO SCH (09:30)
[2019-10-08] MEDS ORDERED: HYDROmorphone 1 MG/ML 1 ML SYRINGE IVP PRN (11:49)
--- NOTE | 2019-10-08 12:58 | P.PN ---
Subjective Progress Note Date: 10/08/19 Principal diagnosis: New picture concerning for malignancy NG tube is in place. Overnight patient became tachycardic and worsening abdominal distention. General surgery was consulted due to bowel obstruction. Flat Plate revealed dilated large bowel could relate to severe ileus or distal mechanical large bowel obstruction. He is not currently a surgical candidate. His overall metastatic picture and severity of disease will make difficult to to give any sustainable treatment options at this point. Agree with hospice care as overall prognosis very poor. . Objective - Vital Signs Vital signs: Vital Signs Temp 97.5 F L 10/08/19 12:00 Pulse 117 H 10/08/19 12:00 Resp 26 H 10/08/19 12:00 BP 110/86 10/08/19 12:00 Pulse Ox 91 L 10/08/19 12:00 Intake & Output 10/07/19 10/08/19 10/08/19 18:59 06:59 18:59 Intake Total 260 160 Output Total 2150 550 700 Balance -1890 -390 -700 Weight 95.254 kg Intake: IV 260 160 0.9 Normal Saline @ 20 mL 260 160 /hr Output: Gastric Drainage 200 400 Urine 1950 550 300 Other: Voiding Method Urinal Urinal Urinal - Exam - Constitutional General appearance: average body habitus, cooperative, no acute distress - EENT Eyes: EOMI, PERRLA, poor dentition ENT: NA/AT, normal oropharynx NG Tube - Neck Left neck palpable Neck: lymphadenopathy - Respiratory Respiratory: bilateral: diminished, rhonchi - Cardiovascular Rhythm: regular Heart sounds: normal: S1, S2 - Gastrointestinal General gastrointestinal: decreased bowel sounds, distended, firm - Integumentary Integumentary: pale Unilateral upper extremity edema - Neurologic non-focal - Musculoskeletal Musculoskeletal: generalized weakness, strength equal bilaterally - Psychiatric Psychiatric: A&O x's 3, appropriate affect, intact judgment & insight - Labs CBC & Chem 7: 10/08/19 04:00 10/08/19 04:00 Labs: Abnormal Lab Results - Last 24 Hours (Table) 10/08/19 10/08/19 Range/Units 04:00 04:00 WBC 13.4 H (3.8-10.6) k/uL Neutrophils # 12.0 H (1.3-7.7) k/uL Lymphocytes # 0.5 L (1.0-4.8) k/uL Sodium 128 L (137-145) mmol/L Chloride 90 L (98-107) mmol/L Creatinine 0.55 L (0.66-1.25) mg/dL Glucose 115 H (74-99) mg/dL Assessment and Plan Plan: Assessment and Recommendations: SVC Syndroms: - Status POst XRT Palliative . Discussed with Dr. 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 - no plan for bronch at this time Bowel Obstruction versus Severe Ileus: - Not a surgical Candidate HX: head neck: - The new finding not likely related - Consult place for left neck submanibular node with ENT, they are planning on Head and neck biopsy 10/05/19 Plan: - Given full picture and widespread metastatic disease and not being surgical candidate agree with plan for hospice. Overall prognosis poor
--- NOTE | 2019-10-08 13:43 | P.PN ---
Subjective Progress Note Date: 10/08/19 Principal diagnosis: Metastatic bronchogenic carcinoma stage IV. This patient got transferred yesterday to the intensive care units. The patient was seen earlier in the oncology unit because of metastatic adenocarcinoma with liver involvement sources being either GI or the lung. I fever lung as the patient has what looks to be a hilar mass was significant collapse of the right upper lobe and the right lower lobe with a development of pleural effusion. The patient operative metastatic disease knowing that the MRI of the abdomen also showed in addition to the 4 cm hepatic mass, 5 satellite nodules up to 1 cm in size, retroperitoneal metastatic lymphadenopathy measuring up to 1.2 cm, abnormal thickening of the right greater than left area gland suspicious for metastatic disease in addition to the right-sided pleural effusion and new left- sided smaller pleural effusion and a soft tissue density in the right hilum as was seen on the CAT scan of the chest that was done on 09/29/2019 and based on my evaluation this is considered to be the primary source of the malignancy. Additional findings were highly suspicious for diffuse osseous metastases. Other the patient also describes cell carcinoma of the tongue and the patient was being evaluated for a head and neck tumor also. The patient was hypoxic on 3 L approximately nasal cannula. As part of his workup for the malignancy, GI was consulted and the patient was given the option of EGD and colonoscopy. The Pap was given yesterday. Last night, the patient became progressively more tachycardic and abdomen became quite extensive distended. He was transferred to the intensive care unit. NG tube was placed. The patient had abdominal film that showed significant distention of the colon. The x-ray of the abdomen from this morning showing distal large bowel obstruction with high risk of perforation based on the surgical opinion. The patient was given morphine for pain control. Sodium level is 124. The white cell count 14.6. The patient is quite lethargic. The patient shortness of breath. The patient is uncomfortable with abdominal pain. As stated earlier, in my opinion, the patient's overall performance and functional status is extremely poor and the patient has metastatic disease which in my opinion is of a primary lung. I elected discussion with him. He wanted to go home and stop all treatment. I recommended hospice for this patient which she accepted. Based on this, hospice services were consulted. I also talked over with GI and general surgery. I do not see a role for any surgical intervention at this point in time/to his underlying metastatic the chest x-ray shows collapse/mass of the right upper lobe in addition to her right-sided pleural effusion. No failure. NG tube is in a good location. Patient was reevaluated today on 10/08/19, he is basically the same, patient has what seems to be a metastatic bronchogenic carcinoma, he is currently sitting in chair, nasogastric tube on suction, patient is tachycardic, and today I recommended IV metoprolol, oral metoprolol, and oral Cardizem. Patient is being considered for hospice. His overall prognosis seems to be extremely poor. And he has been seen by many consultants. Patient is definitely not a surgical ca ndidate. Plans are in progress to send the patient home with hospice care. Objective - Vital Signs Vital signs: Vital Signs Temp 97.5 F L 10/08/19 12:00 Pulse 109 H 10/08/19 13:00 Resp 18 10/08/19 13:00 BP 99/80 10/08/19 13:00 Pulse Ox 91 L 10/08/19 13:00 Intake & Output 10/07/19 10/08/19 10/08/19 18:59 06:59 18:59 Intake Total 260 160 Output Total 2150 550 825 Balance -1890 -390 -825 Weight 95.254 kg Intake: IV 260 160 0.9 Normal Saline @ 20 mL 260 160 /hr Output: Gastric Drainage 200 400 Urine 1950 550 425 Other: Voiding Method Urinal Urinal Urinal - Exam Patient is sitting in chair and in no distress. On room air. HEENT: Normocephalic. Neck is supple. Pupils reactive. Nostrils clear. Oral cavity is moist. Ears reveal no drainage. Neck reveals no JVD, carotid bruits, or thyromegaly. CHEST EXAMINATION: Trachea is central. Symmetrical expansion. Diminished air entry on the right side. Left basilar crackles.n. CARDIAC: Normal S1, S2 with no gallops. No murmurs ABDOMEN: Soft.Right lower quadrant tenderness and generalized tenderness. Bowel sounds present. Distended. No abdominal bruits. Extremities: reveal no edema. No clubbing or cyanosis Neurologically awake, alert, oriented x2-3 with well-coordinated movements. No focal deficits noted Skin: No rash or skin lesions. Psychiatric: Coperative. Could not be sensory completely Musculoskeletal: No joint swelling or deformity. Normal range of motion. - Labs CBC & Chem 7: 10/08/19 04:00 10/08/19 04:00 Labs: Abnormal Lab Results - Last 24 Hours (Table) 10/08/19 10/08/19 Range/Units 04:00 04:00 WBC 13.4 H (3.8-10.6) k/uL Neutrophils # 12.0 H (1.3-7.7) k/uL Lymphocytes # 0.5 L (1.0-4.8) k/uL Sodium 128 L (137-145) mmol/L Chloride 90 L (98-107) mmol/L Creatinine 0.55 L (0.66-1.25) mg/dL Glucose 115 H (74-99) mg/dL Assessment and Plan Assessment: Metastatic lung cancer involving mediastinum and liver. Abdominal distention due to ileus and possible mechanical bowel obstruction. History of throat cancer and previous chemo as well as radiation. History of hepatitis C infection. Benign essential hypertension. Hypovolemic hyponatremia. Seizure disorder. Chronic constipation. Acute hypoxic respiratory failure secondary to above, mostly secondary to right hilar mass and atelectasis of the right lung with parapneumonic effusion. Right-sided pleural effusion with trapped lung with tumor obstructing the right upper lobe bronchus and distal bronchus intermedius. SVC syndrome with swelling of the right upper extremity and swelling of the neck. Hepatic mass post tibial aspiration by interventional radiology showing adenocarcinoma. Supraventricular tachycardia Recommendation: Continue present treatment plan, Strongly recommend comfort care measures and hospice. Will follow on when necessary basis. Prognosis is extremely poor. Time with Patient: Less than 30
[2019-10-08 14:08] VITALS: BP 122/93
--- NOTE | 2019-10-08 15:01 | P.DS ---
Providers Date of admission: 09/28/19 19:33 Expected date of discharge: 10/08/19 Attending physician: Yunior Hughes Consults: 09/28/19 19:32 Consult Physician Routine Consulting Provider: David Lawson Consult Reason/Comments: ca Do you want consulting provider notified?: Yes 10/01/19 20:42 Consult Physician Routine Consulting Provider: Deondre Montoya Consult Reason/Comments: increased LN Do you want consulting provider notified?: Yes 10/02/19 14:04 Consult Physician Routine Consulting Provider: Michel Collado Consult Reason/Comments: Biopsy of neck LN - HX: SCC Do you want consulting provider notified?: Yes 10/02/19 15:13 Consult Physician Routine Consulting Provider: Julius Bro Consult Reason/Comments: SVC syndrome Do you want consulting provider notified?: Yes 10/05/19 14:41 Consult Physician Routine Consulting Provider: Andrea Almonte Consult Reason/Comments: EGD and Colonoscopy regarding primary Do you want consulting provider notified?: Yes 10/07/19 03:54 Consult Physician Stat Consulting Provider: Jessica Mijares Consult Reason/Comments: Bowel Obstruction Do you want consulting provider notified?: Yes 10/07/19 09:07 Consult Physician Stat Consulting Provider: Deondre Montoya Consult Reason/Comments: ICU management Do you want consulting provider notified?: Already Contacted Primary care physician: Johan Grande Hospital Course: Final diagnosis Abdominal distention due to severe ileus and possible distal mechanical large bowel obstruction. 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 Consolidation and atelectasis of the entire right lung and small left pleural effusion Postobstructive atelectasis Throat cancer status post chemo and radiation. Hepatitis C infection Hypertension History of seizure disorder BPH Hypovolemic hyponatremia Chronic constipation DVT prophylaxis Discharge disposition Patient is being discharged in a stable condition with guarded and extremely poor prognosis to Home. Patient has signed an with [facility] and will continue with hospice comfort care measures only. Patient would like to go home with hospice. . Total time taken is 35 minutes. History of present illness This is a 62-year-old male who was recently admitted With Abdominal pain secondary to metastatic cancer and was being closely monitored. Patient was seen and evaluated by multiple medical consultations including oncology and radiation oncology and given biopsy results and extremely poor prognosis patient would like to go home with hospice with comfort care measures only. Patient does not want to seek any further treatment and would like to go home with stepson. Patient has met with [facility] and has signed an for comfort care measures only. Currently no reports of chest pain, worsening shortness of breath, or palpitations. Patient is afebrile. No reports of nausea or vomiting and patient has not been eating. Patient will be discharged Home today with hospice with extremely poor prognosis. Please refer to previous dictations for further HPI. On exam vital signs are stable. Temp is 97.5F, pulse is 117, respirations are 26, blood pressure is 110/86, oxygen saturation is 91% on 4 L via nasal cannula. Cardio S1, S2 are muffled. Respiratory system shows diminished breath sounds at the bases with Some scattered rhonchi noted. Abdomen is soft and obese, and nontender. Nervous system shows diffuse weakness. Please refer to medication reconciliation sheet for a list of medications. Patient Condition at Discharge: Fair Plan - Discharge Summary New Discharge Prescriptions: New Diltiazem Oral [Cardizem*] 60 mg PO TID 30 Days #90 tab Lidocaine 5% Patch [Lidoderm 5% Patch] 1 patch TOPICAL DAILY 30 Days #30 patch Metoprolol Tartrate [Lopressor] 25 mg PO BID 30 Days #60 tab Polyethylene Glycol 3350 [Miralax] 17 gm PO DAILY 30 Days #30 powd.pack Continue oxyCODONE HCL [oxyCODONE HCL (IR)] 30 mg PO 5XD PRN PRN Reason: Pain Tamsulosin [Flomax] 0.4 mg PO DAILY Phenytoin Sodium Extended [Dilantin] 200 mg PO DAILY Primidone [Mysoline] 50 mg PO BID Meloxicam 15 mg PO DAILY Albuterol Inhaler [Ventolin Hfa Inhaler] 2 puff INHALATION RT-Q4H PRN PRN Reason: Shortness Of Breath Oxybutynin Chloride [Ditropan] 5 mg PO BID Phenytoin Sodium Extended [Dilantin] 300 mg PO HS Varenicline [Chantix Continuing Pack] 1 mg PO BID Discharge Medication List Meloxicam 15 mg PO DAILY 05/27/17 [History] Phenytoin Sodium Extended [Dilantin] 200 mg PO DAILY 05/27/17 [History] Primidone [Mysoline] 50 mg PO BID 05/27/17 [History] Tamsulosin [Flomax] 0.4 mg PO DAILY 05/27/17 [History] oxyCODONE HCL [oxyCODONE HCL (IR)] 30 mg PO 5XD PRN 05/27/17 [History] Albuterol Inhaler [Ventolin Hfa Inhaler] 2 puff INHALATION RT-Q4H PRN 09/28/19 [History] Oxybutynin Chloride [Ditropan] 5 mg PO BID 09/28/19 [History] Phenytoin Sodium Extended [Dilantin] 300 mg PO HS 09/28/19 [History] Varenicline [Chantix Continuing Pack] 1 mg PO BID 09/28/19 [History] Diltiazem Oral [Cardizem*] 60 mg PO TID 30 Days #90 tab 10/08/19 [Rx] Lidocaine 5% Patch [Lidoderm 5% Patch] 1 patch TOPICAL DAILY 30 Days #30 patch 10/08/19 [Rx] Metoprolol Tartrate [Lopressor] 25 mg PO BID 30 Days #60 tab 10/08/19 [Rx] Polyethylene Glycol 3350 [Miralax] 17 gm PO DAILY 30 Days #30 powd.pack 10/08/19 [Rx] Follow up Appointment(s)/Referral(s): Johan Grande MD [Primary Care Provider] - 1-2 days Activity/Diet/Wound Care/Special Instructions: Patient is going home with [facility] Activity as tolerated Continue current diet Discharge Disposition: HOME WITH HOSPICE
[2019-10-08 15:06] VITALS: PULSE 151; RESP 14
--- NOTE | 2019-10-08 15:11 | PN ---
PROGRESS NOTE DATE OF SERVICE: 10/08/2019 Patient is a 68-year-old pleasant white male who was noted to diffuse metastatic disease of unknown primary and was planning to have an EGD and colonoscopy by Dr. Almonte yesterday. However, he was not able to tolerate the prep and continued to have worsening abdominal distention, abdominal pain and NG tube was placed in the meantime. The procedures have been discontinued. There was discussion with the family and he has just been made hospice and is going to be discharged home today. PHYSICAL EXAMINATION: Blood pressure 133/89, pulse rate 92 per minute and afebrile. HEENT examination unremarkable. Conjunctivae pink, sclerae anicteric. Oral cavity no lesions. Neck no JVD or lymph node enlargement. Abdomen distended, but was nontender. Bowel sounds are positive. Extremities no pedal edema. Neuro, he is awake and oriented x3. IMPRESSION: Metastasis to the liver with unknown primary. CT scan showed multiple metastatic lesions in the liver, bone and lymph nodes. Liver biopsy consistent with adenocarcinoma of gastrointestinal origin. EGD and colonoscopy could not be performed because of inability to tolerate the prep. In the meantime, patient was made hospice care today. RECOMMENDATION: 1. Continue with symptomatic and supportive care. 2. Pain management. 3. Will sign off at this time. Please call us if needed. Thank you for this consultation. MMODL / IJN: [id number] /
--- NOTE | 2019-10-23 22:50 | P.PN ---
Subjective Progress Note Date: 10/03/19 Principal diagnosis: Abdominal pain secondary to metastatic cancer. Patient is a 64-year-old male with a known history of throat cancer status post chemo and radiation, chronic hepatitis C, hypertension, seizure disorder and BPH and also currently everyday smoker presented to ER with complaints of abdominal pain mainly right lower quadrant and generalized pain. Patient does have history of throat cancer and is currently able to eat but cannot taste. Denied any complaints of chest pain or shortness of breath. Patient states that he has been constipated for the past 4 to 5 days. Does pass flatus. Denies any fever or chills. No cough or sputum production. No headache or dizziness or lightheadedness. Chest x-ray showed findings may represent postobstructive atelectasis in the right upper lobe CT of the abdomen pelvis showed findings consistent with metastatic disease. Right pleural effusion. Right upper lobe atelectasis as described on the chest x-ray report. Right-sided nephrolithiasis. Additional findings as above. EKG showed normal sinus rhythm. CT of the chest showed right-sided hydrothorax with masslike density in the right pulmonary hilum extending into the mediastinum consistent with tumor. Consolidation atelectasis of the entire right lung small left pleural effusion. Nonspecific density adjacent to the pleura in the posterior superior segment of the left lower lobe. Large liver lesion consistent with tumor. CT soft tissue neck showed asymmetric increased soft tissue density in the hypopharynx on the left side with wall thickening that could relate to tumor. Laboratory data showed WBC 10.8, hemoglobin 13.6, platelets 292 and sodium 131, potassium 3.1 and chloride 94 BUN 16 and creatinine 0.64 lactic acid 1.3 Troponin x1- proBNP 152 COVID-19 PCR negative. 09/30/2019 Patient is currently lying in the bed comfortably. Abdominal pain is improved with morphine. Patient is able to tolerate soft diet. Otherwise patient doesn't have any bowel movement for the last few days. Patient had enema done yesterday and also attending stool softeners and laxatives. Otherwise patient has been afebrile. Oncology is on board. 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 10/01/2019 Patient is seen and evaluated and follow-up with no acute overnight issues. Patient continues to request morphine often per nursing staff. Oncology following the patient recommending biopsy of the liver and Doppler. Doppler done of the right upper extremity which was negative for DVT at this time. When discussing with patient about treatment plan patient states he is unsure at this time but is agreeable to further testing and will await biopsy with interventional radiology to discuss further treatment options. Patient states he has some shortness of breath and is currently maintained on 3 L of oxygen via nasal cannula although no reports of chest pain or palpitations. Patient is afebrile. No reports of nausea or vomiting but does have some abdominal discomfort as patient states he has not had a bowel movement in 3 weeks. Patient had been taking large amounts of narcotics in the outpatient setting. 10/02/2019 Patient is seen in follow-up today and continues to have generalized pain and weakness and is being closely monitored. Per nursing staff patient made comments of being too weak to get up out of the bed and PT/OT therapy consulted and pending at this time. Patient had a brain MRI for diagnostic purposes yesterday showing no MRI evidence for suspicious enhancing intraparenchymal mass to suggest metastatic disease to the brain and back from mild to moderate diffuse cerebral atrophy and small chronic vessel ischemic changes noted. Patient also had liver biopsy with pathology pending. Oncology is following. Case management is to discuss with patient about possible discharge planning needs as patient states he wants to return home with his son-in-law once discharged. Awaiting PT/OT eval for possible home care once discharged. Currently no reports of chest pain, worsening shortness of breath, or palpitations. Patient is afebrile. No reports of nausea or vomiting and patient is tolerating diet. Patient continues to deny bowel movements at this time. Patient did receive an enema. 10/03/2019 Patient is currently awake alert and oriented. Feels very weak. Complains of r ight arm swelling and right shoulder discomfort. Liver biopsy reports are pending. Patient was seen by ENT for possible biopsy of the left neck submandibular node. Radiation oncology is awaiting for liver biopsy report. Planning for radiation therapy for possible non-small cell lung cancer primary. Patient is currently saturating alert 94% on 3 L oxygen via nasal cannula. Patient is afebrile. Still having some abdominal discomfort and did have a bowel movement. Patient does have constipation and is being continued on stool softeners and laxatives. Current medications reviewed. Objective - Vital Signs Vital signs: Vital Signs Temp 97.6 F 10/03/19 12:48 Pulse 90 10/03/19 12:48 Resp 16 10/03/19 12:48 BP 93/66 10/03/19 12:48 Pulse Ox 92 L 10/03/19 04:00 Intake & Output 10/02/19 10/03/19 10/03/19 18:59 06:59 18:59 Intake Total 600 Output Total 900 500 400 Balance -900 -500 200 Weight 95.254 kg Intake: Oral 600 Output: Urine 900 500 400 Other: Voiding Method Urinal Urinal Urinal # Voids 2 2 # Bowel Movements 0 - Exam PHYSICAL EXAMINATION: Patient is lying in the bed operatively. No acute distress., awake alert and oriented.. HEENT: Normocephalic. Neck is supple. Pupils reactive. Nostrils clear. Oral cavity is moist. Ears reveal no drainage. Neck reveals no JVD, carotid bruits, or thyromegaly. CHEST EXAMINATION: Trachea is central. Symmetrical expansion. Diminished air entry on the right side. Left basilar crackles.n. CARDIAC: Normal S1, S2 with no gallops. No murmurs ABDOMEN: Soft.Right lower quadrant tenderness and generalized tenderness. Bowel sounds present. Distended. No abdominal bruits. Extremities: reveal no edema. No clubbing or cyanosis Neurologically awake, alert, oriented x2-3 with well-coordinated movements. No focal deficits noted Skin: No rash or skin lesions. Psychiatric: Coperative. Could not be sensory completely Musculoskeletal: No joint swelling or deformity. Normal range of motion. - Labs CBC & Chem 7: 10/08/19 04:00 10/08/19 04:00 Labs: Abnormal Lab Results - Last 24 Hours (Table) 10/03/19 10/03/19 Range/Units 07:30 07:30 Neutrophils # 8.4 H (1.3-7.7) k/uL Lymphocytes # 0.3 L (1.0-4.8) k/uL Sodium 130 L (137-145) mmol/L Chloride 94 L (98-107) mmol/L Creatinine 0.45 L (0.66-1.25) mg/dL Glucose 158 H (74-99) mg/dL Assessment and Plan Assessment: Right lower quadrant abdominal pain and generalized pain secondary to cancer related. 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 Consolidation and atelectasis of the entire right lung and small left pleural effusion Postobstructive atelectasis Throat cancer status post chemo and radiation. Hepatitis C infection Hypertension History of seizure disorder BPH Hypovolemic hyponatremia Chronic constipation DVT prophylaxis Plan: Patient will be continued on pain management with morphine. Continue with stool softeners and laxatives and enema as needed for constipation. Oncology fo llowing. Patient underwent brain MRI along with liver biopsy. Pulmonary was consulted for possible lung biopsy. Prognosis poor at this time. Patient has yet to decide on treatment plan. Patient is agreeable to further studies although has not made decisions for active treatment. Had a lengthy discussion with patient and son at the bedside about CODE STATUS and patient states he wants everything done possible and wants to remain a full code. Further recommendations to follow based on clinical course. Time with Patient: Greater than 30
== END 2019-10-08 15:25 | disposition hospice, home (50) | DRG 180 ==
LOC: EC 14:57 → 5NMEDONC 19:33 → 2SICU 10-07 02:48
PROVIDERS: ADMIT Hospitalist; ATTEND Hospitalist
PROC: 0FB13ZX Excision of Right Lobe Liver, Percutaneous Approach, Diagnostic (ICD-10-PCS; principal; 2019-10-01)
PROC: [UNRECOGNIZED PROCEDURE] (2019-10-04)
PROC: [UNRECOGNIZED PROCEDURE] (2019-10-05)
DX: C34.11 Malignant neoplasm of upper lobe, right bronchus or lung (principal); J96.01 Acute respiratory failure with hypoxia; C77.2 Secondary and unspecified malignant neoplasm of intra-abdominal lymph nodes; J90 Pleural effusion, not elsewhere classified; I87.1 Compression of vein; C78.7 Secondary malignant neoplasm of liver and intrahepatic bile duct; C78.1 Secondary malignant neoplasm of mediastinum; K56.7 Ileus, unspecified; J98.11 Atelectasis; E87.1 Hypo-osmolality and hyponatremia; I47.1 Supraventricular tachycardia; J94.8 Other specified pleural conditions; F17.210 Nicotine dependence, cigarettes, uncomplicated; B18.2 Chronic viral hepatitis C; N20.0 Calculus of kidney; N40.0 Benign prostatic hyperplasia without lower urinary tract symptoms; C14.0 Malignant neoplasm of pharynx, unspecified; Z20.828 Contact with and (suspected) exposure to other viral communicable diseases; Z51.5 Encounter for palliative care; Z66 Do not resuscitate; Z74.01 Bed confinement status; Z85.810 Personal history of malignant neoplasm of tongue; Z92.3 Personal history of irradiation; Z92.21 Personal history of antineoplastic chemotherapy; Z53.09 Procedure and treatment not carried out because of other contraindication; G40.909 Epilepsy, unspecified, not intractable, without status epilepticus; E86.1 Hypovolemia; K59.09 Other constipation; G89.3 Neoplasm related pain (acute) (chronic); I10 Essential (primary) hypertension; J44.9 Chronic obstructive pulmonary disease, unspecified; Z79.1 Long term (current) use of non-steroidal anti-inflammatories (NSAID); Z79.899 Other long term (current) drug therapy; Z85.89 Personal history of malignant neoplasm of other organs and systems
CPT/HCPCS: 36415; 47000; 70490; 70553; 71045; 71046; 71260; 74018; 74177; 74183; 76942; 77295; 77300; 77332; 77334; 77387; 77412; 80048; 80053; 82550; 83605; 83690; 83735; 83880; 84100; 84153; 84154; 84450; 84460; 84484; 85025; 85610; 85730; 87070; 87205; 88307; 88341; 88342; 93005; 94640; 94760; 96361; 96374; 96376; 99285